=== PATIENT | female | born 1940 | race Caucasian/White ===

== ENCOUNTER 2016-10-23 22:01 | Emergency (ER) | payer MEDICARE, OTHER ==
[2016-10-23 22:23] VITALS: TEMP 99.7
--- NOTE | 2016-10-23 23:08 | ED.PDOC ---
History of Present Illness - General Chief Complaint: Syncope/Near Syncope Stated Complaint: syncope Time Seen by Provider: 10/23/16 22:05 Source: patient Exam Limitations: no limitations - History of Present Illness Initial Comments: THIS PATIENT COMES [facility]. SHE VOICES THAT FOR THE LAST SEVERAL TIMES AFTER HEMODIALYSIS SHE SUFFERS A NEAR SYNCOPE. THIS EPISODES ARE ASSOCIATED WITH PALPITATIONS BUT NO CHEST PAIN. SHE HAS DIABETES MELLITUS. Timing/Duration: other - TWO WEEKS Severity: moderate Improving Factors: nothing Worsening Factors: nothing Associated Symptoms: denies symptoms Allergies/Adverse Reactions: Allergies NO KNOWN ALLERGY Allergy (Verified 06/26/16 22:04) Home Medications: Ambulatory Orders Acetaminophen W/ Codeine [Tylenol W/ CODEINE #3] 1 ea PO Q6HR PRN 07/05/16 Acetaminophen [Tylenol] 650 mg PO Q4HR PRN 07/05/16 Amiodarone HCl [Pacerone] 100 mg PO DAILY 07/05/16 Aspirin (Buffered) 325 mg [Bufferin 325 mg] 1 ea PO QD 07/05/16 Atorvastatin Calcium [Lipitor] 10 mg PO DAILY 07/05/16 Bisacodyl 10 mg [place] DAILY PRN 07/05/16 Calcium Acetate (Phosphate Bin [Calcium Acetate] 2 ea PO TID 07/05/16 Citalopram Hydrobromide [Celexa] 40 mg PO DAILY 07/05/16 Clonidine HCl 0.1 mg PO TID 07/05/16 Cyclobenzaprine HCl [Flexeril] 5 mg PO BID 07/05/16 Diphenhydramine HCl 25 mg PO Q4H PRN 07/05/16 Docusate Sodium 100 mg PO BID 07/05/16 Famotidine 20 mg PO DAILY 07/05/16 HYDROcodone 5MG/APAP 325MG [Arrey 5/325] 1 ea PO Q6HRS PRN 07/05/16 Hydrocodone-Acetaminophen [Hydrocodone Bitartrate/AC] 1 tab PO BEDTIME PRN 07/05 Insulin Aspart [Novolog] 3 unit SC AC 07/05/16 Insulin Detemir [Levemir] 58 unit SUBCU BID 07/05/16 Memantine HCl [Namenda] 5 mg PO DAILY 07/05/16 Metoprolol Tartrate 25 mg PO Q8HR 07/05/16 Multiple Vitamin [Multi Vitamin Daily] 1 tab PO DAILY 07/05/16 Ondansetron [Ondansetron Odt] 4 mg PO Q4HR PRN 07/05/16 Pregabalin [Lyrica] 100 mg PO DAILY 07/05/16 Rivastigmine [Exelon] 13.3 mg TD DAILY 07/05/16 Tramadol HCl 50 mg PO Q12HR PRN 07/05/16 Zolpidem Tartrate 5 mg PO BEDTIME 07/05/16 Cyanocobalamin [Vitamin B12] 1,000 mcg PO MONTHLY 07/06/16 Magnesium Hydroxide [Milk Of Magnesia] 30 ml PO Q8HR PRN 07/06/16 Nystatin Powder [Mycostatin] 15 gm TOP PRN PRN 07/06/16 Polyethylene Glycol 3350 [Miralax] 17 gm PO ANALIA-OTH-DAY 07/06/16 Famotidine 20 mg PO DAILY #30 tab 09/28/16 Review of Systems - Review of Systems Constitutional: States: no symptoms reported EENTM: States: no symptoms reported Respiratory: States: no symptoms reported. Denies: cough, orthopnea, wheezing Cardiology: States: no symptoms reported, palpitations, syncope. Denies: chest pain Gastrointestinal/Abdominal: States: no symptoms reported Genitourinary: States: no symptoms reported Musculoskeletal: States: no symptoms reported Skin: States: no symptoms reported Neurological: States: no symptoms reported Endocrine: States: no symptoms reported Hematologic/Lymphatic: States: no symptoms reported All other Systems: Reviewed and Negative Past Medical History (General) - Patient Medical History Hx Seizures: No Hx Stroke: No Hx Dementia: Yes Hx Asthma: No Hx of COPD: No Hx Cardiac Disorders: No Hx Congestive Heart Failure: No Hx Pacemaker: No Hx Hypertension: Yes Hx Thyroid Disease: No Hx Diabetes: Yes Hx Gastroesophageal Reflux: No Hx Renal Disease: Yes Hx Cancer: No Hx of HIV: No Hx Hepatitis C: No Hx MRSA: No - Vaccination History Hx Tetanus, Diphtheria Vaccination: No Hx Influenza Vaccination: Yes Hx Pneumococcal Vaccination: Yes - Social History Hx Tobacco Use: No Hx Chewing Tobacco Use: No Hx Alcohol Use: No Hx Substance Use: No Hx Substance Use Treatment: No Hx Depression: No Hx Physical Abuse: No Hx Emotional Abuse: No Hx Suspected Abuse: No - Activities of Daily Living [facility] (if applicable):: [facility] - Female History Patient is a Female of Child Bearing Age (10 -59 yrs old): No Patient : No Family Medical History - Family History Mother Family History: Unknown Physical Exam - Physical Exam General Appearance: Alert, Anxious Eye Exam: bilateral normal Ears, Nose, Throat: hearing grossly normal Neck: non-tender, full range of motion Respiratory: chest non-tender, lungs clear, normal breath sounds, no respiratory distress, no accessory muscle use Cardiovascular/Chest: normal peripheral pulses, regular rate, rhythm, no edema, no gallop, no JVD, no murmur Gastrointestinal/Abdominal: normal bowel sounds, non tender, soft, no organomegaly, no pulsatile mass Back Exam: normal inspection Extremity: normal range of motion, non-tender, normal inspection 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 THE CREATININE WAS 1.62. IT MIGHT BE POSSIBLE THAT HEMODIALYSIS COULD BE THE CAUSE OF THESE NEAR SYNCOPE EPISODES. I HAVE GIVEN THE LAB REPORTS TO THE PATIENT AND ASKED HER TO TALK TO DR. CHRISTIAN. Departure - Departure Time of Disposition: 00:42 Disposition: Discharge to Home or Self Care Departure Forms: ED Discharge - Pt. Copy, Patient Portal Self Enrollment Diet: resume usual diet Activity: increase activity as tolerated Home Medications: Ambulatory Orders Acetaminophen W/ Codeine [Tylenol W/ CODEINE #3] 1 ea PO Q6HR PRN 07/05/16 Acetaminophen [Tylenol] 650 mg PO Q4HR PRN 07/05/16 Amiodarone HCl [Pacerone] 100 mg PO DAILY 07/05/16 Aspirin (Buffered) 325 mg [Bufferin 325 mg] 1 ea PO QD 07/05/16 Atorvastatin Calcium [Lipitor] 10 mg PO DAILY 07/05/16 Bisacodyl 10 mg [place] DAILY PRN 07/05/16 Calcium Acetate (Phosphate Bin [Calcium Acetate] 2 ea PO TID 07/05/16 Citalopram Hydrobromide [Celexa] 40 mg PO DAILY 07/05/16 Clonidine HCl 0.1 mg PO TID 07/05/16 Cyclobenzaprine HCl [Flexeril] 5 mg PO BID 07/05/16 Diphenhydramine HCl 25 mg PO Q4H PRN 07/05/16 Docusate Sodium 100 mg PO BID 07/05/16 Famotidine 20 mg PO DAILY 07/05/16 HYDROcodone 5MG/APAP 325MG [Arrey 5/325] 1 ea PO Q6HRS PRN 07/05/16 Hydrocodone-Acetaminophen [Hydrocodone Bitartrate/AC] 1 tab PO BEDTIME PRN 07/05 Insulin Aspart [Novolog] 3 unit SC AC 07/05/16 Insulin Detemir [Levemir] 58 unit SUBCU BID 07/05/16 Memantine HCl [Namenda] 5 mg PO DAILY 07/05/16 Metoprolol Tartrate 25 mg PO Q8HR 07/05/16 Multiple Vitamin [Multi Vitamin Daily] 1 tab PO DAILY 07/05/16 Ondansetron [Ondansetron Odt] 4 mg PO Q4HR PRN 07/05/16 Pregabalin [Lyrica] 100 mg PO DAILY 07/05/16 Rivastigmine [Exelon] 13.3 mg TD DAILY 07/05/16 Tramadol HCl 50 mg PO Q12HR PRN 07/05/16 Zolpidem Tartrate 5 mg PO BEDTIME 07/05/16 Cyanocobalamin [Vitamin B12] 1,000 mcg PO MONTHLY 07/06/16 Magnesium Hydroxide [Milk Of Magnesia] 30 ml PO Q8HR PRN 07/06/16 Nystatin Powder [Mycostatin] 15 gm TOP PRN PRN 07/06/16 Polyethylene Glycol 3350 [Miralax] 17 gm PO ANALIA-OTH-DAY 07/06/16 Famotidine 20 mg PO DAILY #30 tab 09/28/16
[2016-10-24 01:02] VITALS: BP 107/70
[2016-10-24 01:42] VITALS: O2SAT 96
== END 2016-10-24 01:35 | disposition home or self-care (01) ==
LOC: ER 22:01
DX: R55 Syncope and collapse (principal); R00.2 Palpitations; Z79.82 Long term (current) use of aspirin; Z79.4 Long term (current) use of insulin; Z79.899 Other long term (current) drug therapy; F03.90 Unspecified dementia, unspecified severity, without behavioral disturbance, psychotic disturbance, mood disturbance, and anxiety; I12.0 Hypertensive chronic kidney disease with stage 5 chronic kidney disease or end stage renal disease; E11.22 Type 2 diabetes mellitus with diabetic chronic kidney disease; N18.6 End stage renal disease; Z99.2 Dependence on renal dialysis

== ENCOUNTER → 2016-11-03 | Outpatient (CLI) | payer MEDICARE, OTHER ==
--- NOTE | 2016-11-03 13:57 | RAD ---
EXAM DESCRIPTION: XR ANKLE 3 OR MORE VIEWS CLINICAL HISTORY: CLOSED RT ANKLE FX. S82.91XD COMPARISON: October 06, 2016, July 06, 2016 IMPRESSION: Three views of the right ankle again demonstrate a mildly displaced spiral fracture of the right distal fibula at the level of the ankle mortise. The fracture margins appear fairly well corticated and there is lack of bridging interbody fusion. These findings are suspicious for non osseous union. There is somewhat increased widening of the medial ankle mortise and narrowing of the lateral tibiotalar joint consistent with probable ligamentous injury similar to previous exam. Probable mildly displaced avulsion fracture of the medial malleolus is stable. Moderate degenerative changes of the midfoot tarsal bones. Small plantar enthesophyte of the calcaneus. Severe arterial vascular calcifications are seen. The osseous structures are diffusely osteopenic. Electronically signed by: Luis Concepcion MD 11/03/2016 13:55
== END ==
LOC: RAD 07:37
PROVIDERS: ATTEND Orthopaedic Surgery
DX: S82.91XD Unspecified fracture of right lower leg, subsequent encounter for closed fracture with routine healing (principal); M77.31 Calcaneal spur, right foot; M85.871 Other specified disorders of bone density and structure, right ankle and foot; I70.208 Unspecified atherosclerosis of native arteries of extremities, other extremity

== ENCOUNTER 2016-11-07 13:21 | Emergency (ER) | payer MEDICARE ==
[2016-11-07 14:51] VITALS: TEMP 97.6; O2SAT 97
[2016-11-07] MEDS ORDERED: LEVALBUTEROL NEBS 1.25 MG/3 ML VIAL NEB ONE (15:09)
[2016-11-07] MEDS ORDERED: IPRATROPIUM BROMIDE NEBS 0.5 MG/2.5 ML VIAL NEB ONE (15:09)
--- NOTE | 2016-11-07 15:15 | ED.PDOC ---
History of Present Illness - General Chief Complaint: Diabetic Complaint Stated Complaint: elevated blood sugar per [facility]gs home Time Seen by Provider: 11/07/16 13:56 Source: patient Exam Limitations: no limitations - History of Present Illness Initial Comments: The patient is a 76-year-old female presenting to the emergency room due to instructions from nursing staff. She was being given her morning insulin this morning when they found that her glucose was 40. She was given glucagon. Blood sugars were followed and have been good since. It is however their facility policy to send someone up to the emergency room but has had glucagon. She had glucagon apparently more than an hour and half prior to arrival here. Glucose upon arrival here was 250 here. Follow-up check was 150. she has apparently had some mild hypoglycemia in the mornings recently. She is feeling fine. She is a long-term diabetic and is used to ups and downs with her blood sugars. Timing/Duration: 1/2 hour Severity: moderate Improving Factors: nothing Worsening Factors: nothing Associated Symptoms: malaise Allergies/Adverse Reactions: Allergies NO KNOWN ALLERGY Allergy (Verified 11/07/16 14:51) Home Medications: Ambulatory Orders Acetaminophen W/ Codeine [Tylenol W/ CODEINE #3] 1 ea PO Q6HR PRN 07/05/16 Acetaminophen [Tylenol] 650 mg PO Q4HR PRN 07/05/16 Amiodarone HCl [Pacerone] 100 mg PO DAILY 07/05/16 Aspirin (Buffered) 325 mg [Bufferin 325 mg] 1 ea PO QD 07/05/16 Atorvastatin Calcium [Lipitor] 10 mg PO DAILY 07/05/16 Bisacodyl 10 mg [place] DAILY PRN 07/05/16 Citalopram Hydrobromide [Celexa] 40 mg PO DAILY 07/05/16 Clonidine HCl 0.1 mg PO TID 07/05/16 Cyclobenzaprine HCl [Flexeril] 5 mg PO BID 07/05/16 Diphenhydramine HCl 25 mg PO Q4H PRN 07/05/16 Docusate Sodium 100 mg PO BID 07/05/16 Famotidine 20 mg PO DAILY 07/05/16 HYDROcodone 5MG/APAP 325MG [Selby 5/325] 1 ea PO Q6HRS PRN 07/05/16 Hydrocodone-Acetaminophen [Hydrocodone Bitartrate/AC] 1 tab PO BEDTIME PRN 07/05 Insulin Aspart [Novolog] 3 unit SC AC 07/05/16 Insulin Detemir [Levemir] 58 unit SUBCU BID 07/05/16 Memantine HCl [Namenda] 5 mg PO DAILY 07/05/16 Metoprolol Tartrate 25 mg PO Q8HR 07/05/16 Multiple Vitamin [Multi Vitamin Daily] 1 tab PO DAILY 07/05/16 Ondansetron [Ondansetron Odt] 4 mg PO Q4HR PRN 07/05/16 Pregabalin [Lyrica] 100 mg PO DAILY 07/05/16 Rivastigmine [Exelon] 13.3 mg TD DAILY 07/05/16 Tramadol HCl 50 mg PO Q12HR PRN 07/05/16 Zolpidem Tartrate 5 mg PO BEDTIME 07/05/16 Cyanocobalamin [Vitamin B12] 1,000 mcg PO MONTHLY 07/06/16 Magnesium Hydroxide [Milk Of Magnesia] 30 ml PO Q8HR PRN 07/06/16 Nystatin Powder [Mycostatin] 15 gm TOP PRN PRN 07/06/16 Polyethylene Glycol 3350 [Miralax] 17 gm PO ANALIA-OTH-DAY 07/06/16 Sevelamer Carbonate [Renvela] 1,600 mg PO TIDFD 10/24/16 Review of Systems - Review of Systems Constitutional: States: malaise EENTM: States: no symptoms reported Respiratory: States: no symptoms reported Cardiology: States: no symptoms reported Gastrointestinal/Abdominal: States: no symptoms reported Genitourinary: States: no symptoms reported Musculoskeletal: States: no symptoms reported Skin: States: no symptoms reported Neurological: States: headache - mild, tremors - mild All other Systems: No Change from Baseline Past Medical History (General) - Patient Medical History Hx Seizures: No Hx Stroke: No Hx Dementia: Yes Hx Asthma: No Hx of COPD: No Hx Cardiac Disorders: No Hx Congestive Heart Failure: No Hx Pacemaker: No Hx Hypertension: Yes Hx Thyroid Disease: No Hx Diabetes: Yes Hx Gastroesophageal Reflux: No Hx Renal Disease: Yes Hx Cancer: No Hx of HIV: No Hx Hepatitis C: No Hx MRSA: No - Vaccination History Hx Tetanus, Diphtheria Vaccination: No Hx Influenza Vaccination: Yes Hx Pneumococcal Vaccination: Yes - Social History Hx Tobacco Use: No Hx Chewing Tobacco Use: No Hx Alcohol Use: No Hx Substance Use: No Hx Substance Use Treatment: No Hx Depression: No Hx Physical Abuse: No Hx Emotional Abuse: No Hx Suspected Abuse: No - Female History Patient is a Female of Child Bearing Age (10 -59 yrs old): No Patient : No Family Medical History - Family History Mother Family History: Unknown Physical Exam - Physical Exam General Appearance: Alert, Comfortable, No apparent distress Eye Exam: bilateral normal Ears, Nose, Throat: normal ENT inspection, normal pharynx Neck: full range of motion, supple, normal inspection Respiratory: chest non-tender, lungs clear, normal breath sounds, no respiratory distress, no accessory muscle use Cardiovascular/Chest: normal peripheral pulses, no edema, other - Regular rate Peripheral Pulses: radial,right: 2+, radial,left: 2+ Gastrointestinal/Abdominal: non tender, soft Rectal Exam: deferred Back Exam: normal inspection, no CVA tenderness, no vertebral tenderness Extremity: normal range of motion, non-tender, normal inspection - vascular shunt intact, no pedal edema, normal capillary refill 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 She actually arrived here well after the duration of the effect of the glucagon. She was monitored for a couple of hours here with repeat glucoses. Blood sugars are normal. She was allowed to eat lunch. Due to her report of multiple low blood sugars early in the morning, we recommend a reduction of her evening insulin dose by approximately 15%. Monitor for future hypoglycemia. er warnings are given. Follow-up with primary care doctor. Departure - Departure Clinical Impression: Hypoglycemia Diabetes mellitus Qualifiers: Diabetes mellitus type: type 2 Diabetes mellitus complication status: with other specified complication Qualifier Code: (E11.69) Type 2 diabetes mellitus with other specified complication Disposition: Discharge to Home or Self Care Condition: Fair Departure Forms: ED Discharge - Pt. Copy, Patient Portal Self Enrollment Instructions: DI for Hypoglycemia Diet: diabetic diet Activity: increase activity as tolerated Referrals: Darrel Marroquin III, MD [Primary Care Provider] - 1-2 Weeks Home Medications: Ambulatory Orders Acetaminophen W/ Codeine [Tylenol W/ CODEINE #3] 1 ea PO Q6HR PRN 07/05/16 Acetaminophen [Tylenol] 650 mg PO Q4HR PRN 07/05/16 Amiodarone HCl [Pacerone] 100 mg PO DAILY 07/05/16 Aspirin (Buffered) 325 mg [Bufferin 325 mg] 1 ea PO QD 07/05/16 Atorvastatin Calcium [Lipitor] 10 mg PO DAILY 07/05/16 Bisacodyl 10 mg [place] DAILY PRN 07/05/16 Citalopram Hydrobromide [Celexa] 40 mg PO DAILY 07/05/16 Clonidine HCl 0.1 mg PO TID 07/05/16 Cyclobenzaprine HCl [Flexeril] 5 mg PO BID 07/05/16 Diphenhydramine HCl 25 mg PO Q4H PRN 07/05/16 Docusate Sodium 100 mg PO BID 07/05/16 Famotidine 20 mg PO DAILY 07/05/16 HYDROcodone 5MG/APAP 325MG [Selby 5/325] 1 ea PO Q6HRS PRN 07/05/16 Hydrocodone-Acetaminophen [Hydrocodone Bitartrate/AC] 1 tab PO BEDTIME PRN 07/05 Insulin Aspart [Novolog] 3 unit SC AC 07/05/16 Insulin Detemir [Levemir] 58 unit SUBCU BID 07/05/16 Memantine HCl [Namenda] 5 mg PO DAILY 07/05/16 Metoprolol Tartrate 25 mg PO Q8HR 07/05/16 Multiple Vitamin [Multi Vitamin Daily] 1 tab PO DAILY 07/05/16 Ondansetron [Ondansetron Odt] 4 mg PO Q4HR PRN 07/05/16 Pregabalin [Lyrica] 100 mg PO DAILY 07/05/16 Rivastigmine [Exelon] 13.3 mg TD DAILY 07/05/16 Tramadol HCl 50 mg PO Q12HR PRN 07/05/16 Zolpidem Tartrate 5 mg PO BEDTIME 07/05/16 Cyanocobalamin [Vitamin B12] 1,000 mcg PO MONTHLY 07/06/16 Magnesium Hydroxide [Milk Of Magnesia] 30 ml PO Q8HR PRN 07/06/16 Nystatin Powder [Mycostatin] 15 gm TOP PRN PRN 07/06/16 Polyethylene Glycol 3350 [Miralax] 17 gm PO ANALIA-OTH-DAY 07/06/16 Sevelamer Carbonate [Renvela] 1,600 mg PO TIDFD 10/24/16 Additional Instructions: the patient is a 76-year-old female presenting to the emergency room after an episode of hypoglycemia in which she was given glucagon. She actually arrived here well after the duration of the effect of the glucagon. She was monitored for a couple of hours here with repeat glucoses. Blood sugars are normal. She was allowed to eat lunch. Due to her report of multiple low blood sugars early in the morning, we recommend a reduction of her evening insulin dose by approximately 15%. Monitor for future hypoglycemia. er warnings are given. Follow-up with primary care doctor.
[2016-11-07 16:37] VITALS: BP 110/62
== END 2016-11-07 16:00 | disposition home or self-care (01) ==
LOC: ER 13:21
DX: E11.649 Type 2 diabetes mellitus with hypoglycemia without coma (principal); I10 Essential (primary) hypertension; F03.90 Unspecified dementia, unspecified severity, without behavioral disturbance, psychotic disturbance, mood disturbance, and anxiety; N28.9 Disorder of kidney and ureter, unspecified; Z79.82 Long term (current) use of aspirin; Z79.899 Other long term (current) drug therapy; Z79.4 Long term (current) use of insulin

== ENCOUNTER → 2016-11-10 | Outpatient (CLI) | payer MEDICARE ==
--- NOTE | 2016-11-10 08:19 | RAD ---
EXAM DESCRIPTION: XR ANKLE 3 OR MORE VIEWS CLINICAL HISTORY: 76 y/o ,F, FRACTURE IMPRESSION: Three views right foot Healing lateral malleoli fracture. It appears grossly unchanged when compared to November 03, 2016. There is widening of the medial clear space with avulsion injury to the tip of the medial malleolus. All findings are unchanged. Electronically signed by: Rogelio De Paz MD 11/10/2016 08:18
== END ==
LOC: RAD 07:41
PROVIDERS: ATTEND Orthopaedic Surgery
DX: S82.91XD Unspecified fracture of right lower leg, subsequent encounter for closed fracture with routine healing (principal)

== ENCOUNTER → 2016-11-17 | Outpatient (CLI) | payer MEDICARE ==
--- NOTE | 2016-11-28 17:15 | RAD ---
EXAM DESCRIPTION: Right ankle, three views. CLINICAL HISTORY: Fracture. Ankle pain. FINDINGS/IMPRESSION: Comparison 11/10/2016 Oblique fracture distal fibular metaphysis with the fracture medially at about the tibiotalar joint space. Stable compared to previous study. Evidence of coexistent medial ligament injury with widening of the ankle mortise medially up to 9 mm. Stable compared to previous study No fracture of the tibia, talus, or calcaneus. No fracture of the other tarsal bones or metatarsals. Midfoot osteoarthritis Atherosclerotic vascular calcifications Electronically signed by: Ulisses Joiner MD 11/17/2016 10:20
== END | disposition home or self-care (01) ==
LOC: RAD 07:38
PROVIDERS: ATTEND Orthopaedic Surgery
DX: S82.91XD Unspecified fracture of right lower leg, subsequent encounter for closed fracture with routine healing (principal)

== ENCOUNTER → 2016-11-24 | Outpatient (CLI) | payer MEDICARE ==
--- NOTE | 2016-11-24 10:22 | RAD ---
EXAM DESCRIPTION: XR ANKLE 3 OR MORE VIEWS CLINICAL HISTORY: 76 y/o ,F, CLOSED FX RT ANKLE. S82.91XD COMPARISON: November 17, 2016 IMPRESSION: Today's exam re- demonstrates the bilateral malleoli fractures. There is once again widening of the medial ankle mortise and medial clear space measuring approximately 8 mm. No definitive callus formation at this time. Electronically signed by: Rogelio De Paz MD 11/24/2016 10:20
== END | disposition home or self-care (01) ==
LOC: RAD 07:43
PROVIDERS: ATTEND Orthopaedic Surgery
DX: S82.91XD Unspecified fracture of right lower leg, subsequent encounter for closed fracture with routine healing (principal)

== ENCOUNTER → 2016-12-23 | Outpatient (CLI) | payer MEDICARE, OTHER | END | disposition home or self-care (01) | LOC: GOCC 11:21 | PROVIDERS: ATTEND Family Medicine | DX: N18.6 End stage renal disease (principal); R30.0 Dysuria ==

== ENCOUNTER → 2017-01-16 | Outpatient (CLI) | payer OTHER ==
--- NOTE | 2017-01-16 10:48 | CT ---
EXAM DESCRIPTION: Abdoment/Pelvis w/o Contrast CLINICAL HISTORY: INCARCERATED HERNIA COMPARISON: None. TECHNIQUE: CT of the abdomen and pelvis was performed without contrast. Multiple axial images and multiplanar reconstructions were generated. FINDINGS: No acute findings within the lung bases. Degenerative change of the thoracolumbar spine with evidence of osteopenia. The liver, spleen, bilateral adrenal glands and the pancreas are unremarkable. Cholelithiasis noted. Atrophic kidneys bilaterally. There is a right of midline abdominal wall hernia. The hernia neck measures 4.2 cm in diameter. The height of the hernia sac measures 6.3 cm in diameter. The hernia sac contains colon and mesenteric fat. There is injected fat noted within the hernia sac compatible with congestion. No evidence of obstruction on today's exam. Old left inferior pubic ramus fracture. IMPRESSION: Today's exam demonstrates a midline abdominal wall hernia which contains both transverse colon and mesenteric fat. There is no evidence of colonic obstruction at this time. The mesenteric fat noted within the hernia sac is injected which can be seen with venous congestion from incarceration. Cholelithiasis noted. Electronically signed by: Rogelio De Paz MD 01/16/2017 10:48 AM CDT
== END | disposition home or self-care (01) ==
LOC: CT 08:27
PROVIDERS: ATTEND Surgery
DX: K43.0 Incisional hernia with obstruction, without gangrene (principal)

== ENCOUNTER → 2017-04-18 | Outpatient (CLI) | payer OTHER ==
--- NOTE | 2017-04-18 10:56 | MRI ---
EXAM DESCRIPTION: Lumbar Spine w/o Contrast CLINICAL HISTORY: LOW BACK PAIN COMPARISON: CT abdomen/pelvis 01/16/2017 TECHNIQUE: MRI of the lumbar spine is performed according to our usual protocol with axial and sagittal multi sequence imaging. FINDINGS: The designated L5-S1 disc space is on axial T2 image 3. Changes of vertebral body augmentation are demonstrated L3. There is loss of stature along the superior L3 endplate, with remodeling of the inferior L2 and L3 vertebral bodies. There is moderate associated marrow edema, and the intervening disc is mostly collapsed, but there is mild edema in the disc space is well. Retrolisthesis of L2 on L3. Remaining vertebral body stature is maintained. There is no acute fracture. The conus medullaris terminates normally. L1-2: Disc desiccation with moderate disc narrowing. Moderate facet hypertrophy with ligamentum flavum thickening. 4 mm posterior disc osteophyte complex. Multifactorial moderate spinal canal stenosis with residual AP diameter of the thecal sac measuring 7.5 mm. Moderate bilateral neural foraminal stenosis. L2-3: Retrolisthesis with remodeling of both endplates. Laminectomy changes are demonstrated. The spinal canal is patent. There is moderate facet hypertrophy. Osteophytic ridging of the endplates with uncovering of the disc. Severe left greater than right neural foraminal stenosis. L3-4: Disc desiccation with mild disc narrowing. Severe facet hypertrophy with ligamentum flavum thickening. 3.5 mm posterior disc osteophyte complex. Multiple spectra severe spinal canal stenosis. Residual AP diameter of the thecal sac is 5.7 mm. Moderate bilateral neural foraminal stenosis. L4-5: Disc desiccation with mild disc narrowing. There is severe facet hypertrophy with probable changes of prior posterior fusion on the left. Laminectomy changes. The spinal canal is patent. Osteophytic ridging of the endplates with moderate left and mild right neural foraminal stenosis. L5-S1: Disc desiccation. Moderate to severe facet hypertrophy. Mild osteophytic ridging of the endplates and posterior disc bulging with moderate left greater than right neural foraminal stenosis. The spinal canal is patent. IMPRESSION: 1. Marrow edema at centered at the L2-L3 disc space with edema in the disc. This may be degenerative, reactive, or postoperative, but would recommend correlation with ESR and CRP to exclude discitis-osteomyelitis which may have a similar appearance. At this level, there is severe left greater than right neural foraminal stenosis. 2. At L3-L4, there is multifactorial severe spinal canal stenosis and moderate bilateral neural foraminal stenosis. 3. At L1-L2, there is moderate spinal canal stenosis and moderate bilateral neural foraminal stenosis. 4. Other findings as above. Electronically signed by: Jeremías Hurt MD 04/18/2017 10:56 AM CDT
== END | disposition home or self-care (01) ==
LOC: MRI 09:27
PROVIDERS: ATTEND Family Medicine
DX: M48.06 Spinal stenosis, lumbar region (principal)

== ENCOUNTER 2017-06-04 06:00 | Day surgery (SDC) | payer OTHER ==
[2017-06-04] MEDS ORDERED: methylPREDNISolone ACETATE 80 MG/ML VIAL ONE (11:23)
[2017-06-04] MEDS ORDERED: SODIUM CHLORIDE 0.9% 10 ML VIAL ONE (11:23)
[2017-06-04] MEDS: LIDOCAINE 1% MPF 5 ML VIAL ONE ×2 (12:01→12:04)
[2017-06-04 14:10] VITALS: BP 170/75; TEMP 96.7; O2SAT 95
== END 2017-06-04 12:20 | disposition home or self-care (01) ==
LOC: AMB 06:00 → EDSTATUS 12:00 → AMB 12:20
PROVIDERS: ATTEND Anesthesiology Pain Medicine
DX: M54.5 Low back pain (principal); M51.16 Intervertebral disc disorders with radiculopathy, lumbar region; E11.40 Type 2 diabetes mellitus with diabetic neuropathy, unspecified; M96.1 Postlaminectomy syndrome, not elsewhere classified; N28.9 Disorder of kidney and ureter, unspecified; Z79.82 Long term (current) use of aspirin; Z79.4 Long term (current) use of insulin; Z79.899 Other long term (current) drug therapy
CPT/HCPCS: 62323; 76000; J1030

== ENCOUNTER 2017-09-19 07:14 | Emergency (ER) | payer OTHER ==
[2017-09-19 07:35] VITALS: TEMP 97.5
--- NOTE | 2017-09-19 07:38 | ED.PDOC ---
History of Present Illness - General Chief Complaint: Trauma Stated Complaint: fall, headache Time Seen by Provider: 09/19/17 07:34 Source: patient, RN notes reviewed, EMS Exam Limitations: no limitations - History of Present Illness Initial Comments: WAS AT [place] ROOM IN THE [place]. WAS WALKING FROM BR TO BATHROOM AND TRIPPED AND FELL. HEAD HIT FLOOR. (HARD, TILE FLOOR. NO CARPETING.) SHE REMEMBERS EVENT. NO LOC. L SHOULDER HURTS TOO. DENIES ANY OTHER PAIN C/O. Occurred: just prior to arrival Severity: moderate Pain Location: head, upper extremity Method of Injury: fall Improving Factors: immobilization Worsening Factors: movement Loss of Consciousness: no loss of consciousness Associated Symptoms (Fall): denies symptoms Allergies/Adverse Reactions: Allergies NO KNOWN ALLERGY Allergy (Verified 11/07/16 14:51) Home Medications: Ambulatory Orders Acetaminophen [Tylenol] 650 mg PO Q6H PRN 07/05/16 Amiodarone HCl [Pacerone] 100 mg PO DAILY 07/05/16 Aspirin (Buffered) 325 mg [Bufferin 325 mg] 1 ea PO QD 07/05/16 Atorvastatin Calcium [Lipitor] 10 mg PO BEDTIME 07/05/16 Bisacodyl 10 mg MT DAILY PRN 07/05/16 Citalopram Hydrobromide [Celexa] 40 mg PO DAILY 07/05/16 Clonidine HCl 0.1 mg PO Q6H PRN 07/05/16 Cyclobenzaprine HCl [Flexeril] 5 mg PO BID 07/05/16 Diphenhydramine HCl 25 mg PO Q4H PRN 07/05/16 Docusate Sodium 100 mg PO BID 07/05/16 Famotidine 10 mg PO DAILY 07/05/16 HYDROcodone 5MG/APAP 325MG [[place]vid 5/325] 1 ea PO Q6HRS PRN 07/05/16 Insulin Aspart [Novolog] 3 unit SC AC 07/05/16 Insulin Detemir [Levemir] 55 unit SUBCU BID 07/05/16 Metoprolol Tartrate 25 mg PO Q8HR 07/05/16 Multiple Vitamin [Multi Vitamin Daily] 1 tab PO DAILY 07/05/16 Ondansetron [Ondansetron Odt] 4 mg PO Q4HR PRN 07/05/16 Pregabalin [Lyrica] 100 mg PO DAILY 07/05/16 Rivastigmine [Exelon] 13.3 mg TD DAILY 07/05/16 Zolpidem Tartrate 5 mg PO BEDTIME 07/05/16 Cyanocobalamin [Vitamin B12] 1,000 mcg PO MONTHLY 07/06/16 Magnesium Hydroxide [Milk Of Magnesia] 30 ml PO Q8HR PRN 07/06/16 Polyethylene Glycol 3350 [Miralax] 17 gm PO DAILY PRN 07/06/16 Sevelamer Carbonate [Renvela] 1,600 mg PO TIDFD 10/24/16 Acetaminophen W/ Codeine [Tylenol W/ CODEINE #3] 1 ea PO Q4H PRN 09/19/17 Gabapentin 100 mg PO BID 09/19/17 Liraglutide [Victoza] 18 mg SC DAILY 09/19/17 Memantine HCl [Namenda Xr] 28 mg PO DAILY 09/19/17 Omeprazole 20 mg PO BID 09/19/17 Review of Systems - Review of Systems Constitutional: States: no symptoms reported EENTM: Denies: eye pain, ear pain, nose pain Respiratory: States: no symptoms reported Cardiology: States: no symptoms reported Gastrointestinal/Abdominal: States: no symptoms reported Genitourinary: States: no symptoms reported Musculoskeletal: States: neck pain. Denies: back pain Skin: States: no symptoms reported Neurological: Denies: numbness, paresthesia, tingling, tremors, weakness Endocrine: States: no symptoms reported Hematologic/Lymphatic: States: no symptoms reported All other Systems: Reviewed and Negative Past Medical History (General) - Patient Medical History Hx Seizures: No Hx Stroke: No Hx Dementia: Yes Hx Asthma: No Hx of COPD: No Hx Cardiac Disorders: Yes - afib Hx Congestive Heart Failure: No Hx Pacemaker: No Hx Hypertension: Yes Hx Thyroid Disease: Yes Hx Diabetes: Yes Hx Gastroesophageal Reflux: No Hx Renal Disease: Yes Hx Cancer: No Hx of HIV: No Hx Hepatitis C: No Hx MRSA: No - Vaccination History Hx Tetanus, Diphtheria Vaccination: No Hx Influenza Vaccination: Yes Hx Pneumococcal Vaccination: Yes - Social History Hx Tobacco Use: No Hx Chewing Tobacco Use: No Hx Alcohol Use: No Hx Substance Use: No Hx Substance Use Treatment: No Hx Depression: No Hx Physical Abuse: No Hx Emotional Abuse: No Hx Suspected Abuse: No - Activities of Daily Living Detention/Assisted Living (if applicable):: [facility] - Female History Patient : No Family Medical History - Family History Mother Family History: Unknown Physical Exam - Physical Exam General Appearance: Alert, Well Nourished Head Injury: swelling, other - 8X8 CM SUPERFICIAL HEMATOMA OF SUPERIOR OCCIPITAL / L PARIETAL SCALP. MILDLY TTP. SKIN IN TACT. NO ECCHYMOSIS. Eye Exam: bilateral normal ENT Exam: hearing grossly normal, no evidence of ENT injury, no dental injury Neck Exam: full range of motion - BUT FEELS "STIFF"., normal alignment, normal inspection Cardiovascular/Respiratory: regular rate, rhythm, no M/R/G Gastrointestinal/Abdominal: non tender, soft Back Exam: no CVA tenderness, no vertebral tenderness Extremity Exam: no evidence of injury - EXCEPT L SHOULDER TTP. , normal range of motion Neurologic: insole taper II-XII nml as tested, no motor/sensory deficits, alert, oriented x 3 Skin Exam: normal color, warm/dry - [place] Coma Score Best Eye Response ([place]): (4) open spontaneously Best Verbal Response ([place]): (5) oriented Best Motor Response ([place]): (6) obeys commands [place] Total: 15 Progress - Results/Orders Results/Orders: CT BRAIN, C-SPINE, AND L SHOULDER XRAY NEG ACUTELY, EXCEPT FOR SUPERFICIAL SCALP HEMATOMA. NO FURTHER ED MGMT INDICATED. PT IS LUCID BUT HAD JUST TRIPPED/SLIPPED. SAFE FOR RETURN TO NH. Departure - Departure Clinical Impression: Left parietal scalp hematoma, Head contusion, Contusion of left shoulder Disposition: Discharge to SNF Condition: Good Departure Forms: ED Discharge - Pt. Copy, Patient Portal Self Enrollment Instructions: DI for Trauma Diet: resume usual diet Activity: increase activity as tolerated Referrals: Darrel Marroquin III, MD [Primary Care Provider] - 1-2 Weeks Home Medications: Ambulatory Orders Acetaminophen [Tylenol] 650 mg PO Q6H PRN 07/05/16 Amiodarone HCl [Pacerone] 100 mg PO DAILY 07/05/16 Aspirin (Buffered) 325 mg [Bufferin 325 mg] 1 ea PO QD 07/05/16 Atorvastatin Calcium [Lipitor] 10 mg PO BEDTIME 07/05/16 Bisacodyl 10 mg MT DAILY PRN 07/05/16 Citalopram Hydrobromide [Celexa] 40 mg PO DAILY 07/05/16 Clonidine HCl 0.1 mg PO Q6H PRN 07/05/16 Cyclobenzaprine HCl [Flexeril] 5 mg PO BID 07/05/16 Diphenhydramine HCl 25 mg PO Q4H PRN 07/05/16 Docusate Sodium 100 mg PO BID 07/05/16 Famotidine 10 mg PO DAILY 07/05/16 HYDROcodone 5MG/APAP 325MG [[place]vid 5/325] 1 ea PO Q6HRS PRN 07/05/16 Insulin Aspart [Novolog] 3 unit SC AC 07/05/16 Insulin Detemir [Levemir] 55 unit SUBCU BID 07/05/16 Metoprolol Tartrate 25 mg PO Q8HR 07/05/16 Multiple Vitamin [Multi Vitamin Daily] 1 tab PO DAILY 07/05/16 Ondansetron [Ondansetron Odt] 4 mg PO Q4HR PRN 07/05/16 Pregabalin [Lyrica] 100 mg PO DAILY 07/05/16 Rivastigmine [Exelon] 13.3 mg TD DAILY 07/05/16 Zolpidem Tartrate 5 mg PO BEDTIME 07/05/16 Cyanocobalamin [Vitamin B12] 1,000 mcg PO MONTHLY 07/06/16 Magnesium Hydroxide [Milk Of Magnesia] 30 ml PO Q8HR PRN 07/06/16 Polyethylene Glycol 3350 [Miralax] 17 gm PO DAILY PRN 07/06/16 Sevelamer Carbonate [Renvela] 1,600 mg PO TIDFD 10/24/16 Acetaminophen W/ Codeine [Tylenol W/ CODEINE #3] 1 ea PO Q4H PRN 09/19/17 Gabapentin 100 mg PO BID 09/19/17 Liraglutide [Victoza] 18 mg SC DAILY 09/19/17 Memantine HCl [Namenda Xr] 28 mg PO DAILY 09/19/17 Omeprazole 20 mg PO BID 09/19/17
--- NOTE | 2017-09-19 08:16 | CT ---
EXAM DESCRIPTION: Head. CT head without contrast. CLINICAL HISTORY: fall with hematoma to parietal COMPARISON: 07/05/2016 TECHNIQUE: Multiple axial images of the head without contrast. Multiplanar reformatted images. This exam was performed according to our departmental dose-optimization program, which includes automated exposure control, adjustment of the mA and/or kV according to patient size and/or use of iterative reconstruction technique. FINDINGS: Evaluation for intracranial hemorrhage is limited due to motion artifact, particularly near the vertex in the area of the large scalp hematoma. Allowing for limitations, there is no definite evidence for intracranial hemorrhage, mass effect, or midline shift. Moderate generalized volume loss. Mild to moderate patchy supratentorial white matter hypodensities. No definite abnormal extra-axial fluid collections. Calcific plaque in the visualized arteries. Large left parietal scalp hematoma. The visualized paranasal sinuses and the mastoids are clear. IMPRESSION: 1. Limited evaluation, with no definite CT evidence for intracranial hemorrhage or mass effect. 2. Large left parietal scalp hematoma. 3. Senescent changes. Electronically signed by: Jeremías Hurt MD 09/19/2017 8:15 AM [facility]
--- NOTE | 2017-09-19 08:22 | RAD ---
EXAM DESCRIPTION: Shoulder,Left 2 or More Views CLINICAL HISTORY: 77 yearsFemale, FELL; L SHOULDER PAIN COMPARISON: None. IMPRESSION: 2 views of the left shoulder demonstrate no evidence of acute fracture, dislocation, or destructive osseous lesion. Advanced glenohumeral and acromio clavicular degenerative changes are present. There is a vascular stent in the proximal left arm. The visualized left lung apex is clear. Electronically signed by: Jeremías Hurt MD 09/19/2017 8:21 AM [facility]
--- NOTE | 2017-09-19 08:24 | CT ---
EXAM DESCRIPTION: Cervical Spine CLINICAL HISTORY: fall COMPARISON: None Available. TECHNIQUE: Multiple axial images of the cervical spine without contrast. Multiplanar reformatted images. This exam was performed according to our departmental dose-optimization program, which includes automated exposure control, adjustment of the mA and/or kV according to patient size and/or use of iterative reconstruction technique. FINDINGS: Vertebral body stature and alignment are maintained. There is no acute fracture or destructive osseous lesion. Multilevel cervical spondylosis is present with mild to moderate multilevel disc narrowing from C3-C4 through C7-T1. Multilevel hypertrophic uncovertebral spurring and facet degenerative changes with up to moderate bilateral neural foraminal narrowing at C5-C6 and C6-C7. No CT evidence of high-grade spinal canal narrowing. Moderate atherosclerotic plaque in the visualized arteries, including the carotid bulbs. Mild fibrotic changes in the lung apices. IMPRESSION: 1. No CT evidence of an acute osseous abnormality in the cervical spine. 2. Multilevel spondylitic changes. Electronically signed by: Jeremías Hurt MD 09/19/2017 8:23 AM [facility]
[2017-09-19 10:08] VITALS: BP 123/64; O2SAT 97
== END 2017-09-19 10:08 ==
LOC: ER 07:14
DX: S00.03XA Contusion of scalp, initial encounter (principal); S40.012A Contusion of left shoulder, initial encounter; I48.91 Unspecified atrial fibrillation; I10 Essential (primary) hypertension; E07.9 Disorder of thyroid, unspecified; E11.9 Type 2 diabetes mellitus without complications; F03.90 Unspecified dementia, unspecified severity, without behavioral disturbance, psychotic disturbance, mood disturbance, and anxiety; Z79.82 Long term (current) use of aspirin; Z79.4 Long term (current) use of insulin; Z79.899 Other long term (current) drug therapy; W01.0XXA Fall on same level from slipping, tripping and stumbling without subsequent striking against object, initial encounter; Y92.89 Other specified places as the place of occurrence of the external cause

== ENCOUNTER 2017-09-24 05:41 | Day surgery (SDC) | payer OTHER ==
[2017-09-24] MEDS ORDERED: SODIUM BICARBONATE VIAL 50 MEQ/50 ML VIAL ONE (11:17)
[2017-09-24] MEDS ORDERED: SODIUM CHLORIDE 0.9% 10 ML VIAL ONE (11:17)
[2017-09-24] MEDS ORDERED: methylPREDNISolone ACETATE 80 MG/ML VIAL ONE (11:17)
[2017-09-24] MEDS: LIDOCAINE 1% MPF 5 ML VIAL ONE ×2 (12:28→12:30)
[2017-09-24 12:56] VITALS: BP 139/72; TEMP 97.1; O2SAT 96
== END 2017-09-24 13:00 ==
LOC: AMB 05:41
PROVIDERS: ATTEND Anesthesiology Pain Medicine
DX: M51.16 Intervertebral disc disorders with radiculopathy, lumbar region (principal); M54.5 Low back pain; E11.9 Type 2 diabetes mellitus without complications; M96.1 Postlaminectomy syndrome, not elsewhere classified; M46.96 Unspecified inflammatory spondylopathy, lumbar region; Z79.82 Long term (current) use of aspirin; Z79.4 Long term (current) use of insulin; Z79.899 Other long term (current) drug therapy
CPT/HCPCS: 62323; 76000; J1030

== ENCOUNTER 2017-10-01 17:40 | Inpatient (IN) | payer OTHER ==
--- NOTE | 2017-10-01 19:33 | ED.PDOC ---
History of Present Illness - General Chief Complaint: Respiratory Problem Stated Complaint: cough Time Seen by Provider: 10/01/17 19:33 Source: patient, family Exam Limitations: no limitations - History of Present Illness Initial Comments: Liss Ortega 77 y/o female brought by son with cough for the last one week and fever for 2 days.No N/V ,no diarrhea,no ill contact.She has ESRD on dialysis. Timing/Duration: other - see hpi Severity: moderate Worsening Factors: nothing Associated Symptoms: cough Allergies/Adverse Reactions: Allergies NO KNOWN ALLERGY Allergy (Verified 10/01/17 18:56) Home Medications: Ambulatory Orders Acetaminophen [Tylenol] 650 mg PO Q6H PRN 07/05/16 Amiodarone HCl [Pacerone] 100 mg PO DAILY 07/05/16 Aspirin (Buffered) 325 mg [Bufferin 325 mg] 1 ea PO QD 07/05/16 Atorvastatin Calcium [Lipitor] 10 mg PO BEDTIME 07/05/16 Bisacodyl 10 mg SC DAILY PRN 07/05/16 Citalopram Hydrobromide [Celexa] 40 mg PO DAILY 07/05/16 Clonidine HCl 0.1 mg PO Q6H PRN 07/05/16 Cyclobenzaprine HCl [Flexeril] 5 mg PO BID 07/05/16 Diphenhydramine HCl 25 mg PO Q4H PRN 07/05/16 Docusate Sodium 100 mg PO BID 07/05/16 Famotidine 10 mg PO DAILY 07/05/16 HYDROcodone 5MG/APAP 325MG [[place] 5/325] 1 ea PO Q6HRS PRN 07/05/16 Insulin Aspart [Novolog] 3 unit SC AC 07/05/16 Insulin Detemir [Levemir] 55 unit SUBCU BID 07/05/16 Metoprolol Tartrate 25 mg PO Q8HR 07/05/16 Multiple Vitamin [Multi Vitamin Daily] 1 tab PO DAILY 07/05/16 Ondansetron [Ondansetron Odt] 4 mg PO Q4HR PRN 07/05/16 Pregabalin [Lyrica] 100 mg PO DAILY 07/05/16 Rivastigmine [Exelon] 13.3 mg TD DAILY 07/05/16 Zolpidem Tartrate 5 mg PO BEDTIME 07/05/16 Cyanocobalamin [Vitamin B12] 1,000 mcg PO MONTHLY 07/06/16 Magnesium Hydroxide [Milk Of Magnesia] 30 ml PO Q8HR PRN 07/06/16 Polyethylene Glycol 3350 [Miralax] 17 gm PO DAILY PRN 07/06/16 Sevelamer Carbonate [Renvela] 1,600 mg PO TIDFD 10/24/16 Acetaminophen W/ Codeine [Tylenol W/ CODEINE #3] 1 ea PO Q4H PRN 09/19/17 Gabapentin 100 mg PO BID 09/19/17 Liraglutide [Victoza] 18 mg SC DAILY 09/19/17 Memantine HCl [Namenda Xr] 28 mg PO DAILY 09/19/17 Omeprazole 20 mg PO BID 09/19/17 Review of Systems - Review of Systems Constitutional: States: no symptoms reported EENTM: States: no symptoms reported Respiratory: States: see HPI Cardiology: States: no symptoms reported Gastrointestinal/Abdominal: States: no symptoms reported Genitourinary: States: see HPI Musculoskeletal: States: no symptoms reported Skin: States: see HPI Neurological: States: no symptoms reported Past Medical History (General) - Patient Medical History Hx Seizures: No Hx Stroke: No Hx Dementia: Yes Hx Asthma: No Hx of COPD: No Hx Cardiac Disorders: Yes - afib Hx Congestive Heart Failure: No Hx Pacemaker: No Hx Hypertension: Yes Hx Thyroid Disease: Yes Hx Diabetes: Yes Hx Gastroesophageal Reflux: Yes Hx Renal Disease: Yes - dialysis ,ESRD Hx Cancer: No Hx of HIV: No Hx Hepatitis C: No Hx MRSA: No Surgical History: tonsillectomy - knee,cataract,a-v fistula for dialysis access , other - Hysterectomy, - Vaccination History Hx Tetanus, Diphtheria Vaccination: No Hx Influenza Vaccination: Yes Hx Pneumococcal Vaccination: No - Social History Hx Tobacco Use: No Hx Chewing Tobacco Use: No Hx Alcohol Use: No Hx Substance Use: No Hx Substance Use Treatment: No Hx Depression: No Hx Physical Abuse: No Hx Emotional Abuse: No Hx Suspected Abuse: No - Activities of Daily Living [facility]/Assisted Living (if applicable):: [facility] - Female History Patient is a Female of Child Bearing Age (10 -59 yrs old): No Patient : No Family Medical History - Family History Mother Family History: Unknown Hx Family Stroke: Yes - several family members Hx Family Diabetes: Yes - several family members Physical Exam - Physical Exam General Appearance: Alert, No apparent distress Eye Exam: bilateral normal Ears, Nose, Throat: hearing grossly normal, normal ENT inspection, normal pharynx Neck: non-tender, full range of motion, supple Respiratory: no respiratory distress, no accessory muscle use, rales - bases Cardiovascular/Chest: normal peripheral pulses, regular rate, rhythm, no murmur Peripheral Pulses: radial,right: 2+, radial,left: 2+ Gastrointestinal/Abdominal: normal bowel sounds, non tender, soft, no organomegaly Back Exam: no CVA tenderness, no vertebral tenderness Neurologic: alert, normal mood/affect, oriented x 3 Skin Exam: normal color, warm/dry Lymphatic: no adenopathy Progress - Progress Progress: 10/01/17 19:50 Vital Signs 10/01/17 10/01/17 18:30 19:02 Temperature 102.6 F H Pulse Rate [ 123 H pulse ox] Respiratory 20 20 Rate Blood Pressure 142/73 [Right Arm] O2 Sat by Pulse 76 L Oximetry - Results/Orders Results/Orders: Laboratory Tests 10/01/17 10/01/17 10/01/17 19:30 19:30 19:40 WBC 9.1 RBC 2.90 L Hgb 10.5 L Hct 31.1 L MCV 107.4 H MCH 36.2 H MCHC 33.7 RDW 16.5 H Plt Count 139 MPV 8.9 Absolute Neuts (auto) 7.30 H Absolute Lymphs (auto) 0.80 L Absolute Monos (auto) 1.00 H Absolute Eos (auto) 0.00 Absolute Basos (auto) 0.00 Neutrophils % 79.7 H Lymphocytes % 8.8 L Monocytes % 10.5 H Eosinophils % 0.5 L Basophils % 0.5 Normal RBC Morphology 2+macrocytosis Sodium 142 Potassium 3.8 Chloride 94 L Carbon Dioxide 35 H Anion Gap 16.8 BUN 16 Creatinine 1.92 H BUN/Creatinine Ratio 8.3 L Random Glucose 176 H Serum Osmolality 288.6 Lactic Acid 1.6 Calcium 8.2 L Total Bilirubin 1.1 H AST 20 ALT 13 Alkaline Phosphatase 99 Serum Total Protein 7.2 Albumin 3.1 L Globulin 4.1 H Albumin/Globulin Ratio 0.8 L - EKG/XRAY/CT XRAY: chest - patchy infiltrate left lung Departure - Departure Clinical Impression: Pneumonia Qualifiers: Pneumonia type: due to unspecified organism Laterality: left Lung location: lower lobe of lung Qualified Code(s): J18.1 - Lobar pneumonia, unspecified organism Time of Disposition: 21:48 Disposition: Admit Patient Condition: Good Departure Forms: Patient Portal Self Enrollment Referrals: Darrel Marroquin III, MD [Primary Care Provider] - 1-2 Weeks Home Medications: Ambulatory Orders Acetaminophen [Tylenol] 650 mg PO Q6H PRN 07/05/16 Amiodarone HCl [Pacerone] 100 mg PO DAILY 07/05/16 Aspirin (Buffered) 325 mg [Bufferin 325 mg] 1 ea PO QD 07/05/16 Atorvastatin Calcium [Lipitor] 10 mg PO BEDTIME 07/05/16 Bisacodyl 10 mg SC DAILY PRN 07/05/16 Citalopram Hydrobromide [Celexa] 40 mg PO DAILY 07/05/16 Clonidine HCl 0.1 mg PO Q6H PRN 07/05/16 Cyclobenzaprine HCl [Flexeril] 5 mg PO BID 07/05/16 Diphenhydramine HCl 25 mg PO Q4H PRN 07/05/16 Docusate Sodium 100 mg PO BID 07/05/16 Famotidine 10 mg PO DAILY 07/05/16 HYDROcodone 5MG/APAP 325MG [[place] 5/325] 1 ea PO Q6HRS PRN 07/05/16 Insulin Aspart [Novolog] 3 unit SC AC 07/05/16 Insulin Detemir [Levemir] 55 unit SUBCU BID 07/05/16 Metoprolol Tartrate 25 mg PO Q8HR 07/05/16 Multiple Vitamin [Multi Vitamin Daily] 1 tab PO DAILY 07/05/16 Ondansetron [Ondansetron Odt] 4 mg PO Q4HR PRN 07/05/16 Pregabalin [Lyrica] 100 mg PO DAILY 07/05/16 Rivastigmine [Exelon] 13.3 mg TD DAILY 07/05/16 Zolpidem Tartrate 5 mg PO BEDTIME 07/05/16 Cyanocobalamin [Vitamin B12] 1,000 mcg PO MONTHLY 07/06/16 Magnesium Hydroxide [Milk Of Magnesia] 30 ml PO Q8HR PRN 07/06/16 Polyethylene Glycol 3350 [Miralax] 17 gm PO DAILY PRN 07/06/16 Sevelamer Carbonate [Renvela] 1,600 mg PO TIDFD 10/24/16 Acetaminophen W/ Codeine [Tylenol W/ CODEINE #3] 1 ea PO Q4H PRN 09/19/17 Gabapentin 100 mg PO BID 09/19/17 Liraglutide [Victoza] 18 mg SC DAILY 09/19/17 Memantine HCl [Namenda Xr] 28 mg PO DAILY 09/19/17 Omeprazole 20 mg PO BID 09/19/17 Decision To Admit - Decistion To Admit Decision to Admit Reason: Admit from ER Decision to Admit Date: 10/01/17 Decision to Admit Time: 21:49 - D/W Deb Welch -GISELL/Hospitalist
--- NOTE | 2017-10-01 20:46 | RAD ---
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 There are ill-defined patchy opacities within the left middle and lower lung zones. Prominence of the interstitial markings likely secondary to hypoventilation. No pneumothorax or pleural effusion. The cardiomediastinal silhouette is within normal limits. Impression: Patchy left lower lobe opacities concerning for pneumonia. Hypoventilatory exam. 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
[2017-10-01] MEDS ORDERED: cefTRIAXone SODIUM 1 GM in SODIUM CHL 0.9% 50ML MIN-BAG+ 50 ML IVPB ONE (21:46)
[2017-10-01] MEDS ORDERED: DOXYCYCLINE HYCLATE IV 100 MG in SODIUM CHLORIDE 0.9% 250ML 250 ML IVPB ONE (21:46)
[2017-10-01] MEDS ORDERED: cefTRIAXone SODIUM 1 GM VIAL ONE (22:49)
[2017-10-01] MEDS ORDERED: SODIUM CHL 0.9% 50ML MIN-BAG+ 50 ML IVPB ONE (22:49)
[2017-10-01] MEDS ORDERED: LEVALBUTEROL NEBS 1.25 MG/3 ML VIAL INH PRN (23:28)
[2017-10-01] MEDS ORDERED: IV SET AND CAP CHANGE INJ INJ SCH (23:30)
[2017-10-01] MEDS ORDERED: SODIUM CHLORIDE 0.9% 1000ML 1,000 ML IVS ONE (23:40)
[2017-10-01] MEDS ORDERED: PANTOPRAZOLE SODIUM IV 40 MG VIAL IV SCH (23:45)
[2017-10-01] MEDS ORDERED: ENOXAPARIN SODIUM 30 MG/0.3 ML SYG SUBCU SCH (23:45)
[2017-10-01] MEDS ORDERED: GLUCAGON INJ 1 MG VIAL SUBCU PRN (23:54)
[2017-10-01] MEDS ORDERED: DEXTROSE 50% 25 GM/50 ML SYG IV PRN (23:54)
--- NOTE | 2017-10-01 23:57 | PCM.CORE ---
Physician DVT/VTE - Prophylaxis Currently: Patient already on anticoagulation therapy - Nurse DVT Assessment & Total Each Risk Factor Represents 3 Points: Age over 75 years Each Risk Factor is 1 Point: Obesity (BMI >25), Serious Lung disease (pnemonia < 1month, COPD, emphysema,etc) DVT Assessment Score: 5 - 5 or more Very High Risk Treatments: Early Ambulation *, Sequential Compression Device
[2017-10-02] MEDS ORDERED: CEFEPIME 2 GM VIAL IVPB ONE (00:02)
[2017-10-02] MEDS ORDERED: SODIUM CHL 0.9% 50ML MIN-BAG+ 50 ML IVPB ONE (00:02)
[2017-10-02] MEDS: SODIUM CHLORIDE 0.9% (FLUSH) 10 ML SYG IV PRN ×2 (00:09→02:06)
[2017-10-02] MEDS: LEVALBUTEROL NEBS 1.25 MG/3 ML VIAL INH SCH ×2 (01:10→07:24)
[2017-10-02] MEDS ORDERED: METOPROLOL TARTRATE 25 MG TAB ONE (01:56)
[2017-10-02] MEDS ORDERED: METOPROLOL TARTRATE 25 MG TAB PO ONE (01:57)
[2017-10-02] MEDS ORDERED: CEFEPIME 2 GM in SODIUM CHL 0.9% 50ML MIN-BAG+ 50 ML IVPB SCH (02:00)
--- NOTE | 2017-10-02 07:28 | RAD ---
EXAM DESCRIPTION: Chest,1 View CLINICAL HISTORY: Pneumonia COMPARISON: October 01, 2017 FINDINGS: The heart is at the upper limits of normal size for AP technique, stable. Mediastinal contours are otherwise unremarkable. Patchy airspace consolidation is noted in the left lung base with additional subtle alveolar opacity in the mid right lung, not significantly changed from yesterday. No pleural effusion is identified. The bronchovascular markings are indistinct. There is no pneumothorax or acute fracture. IMPRESSION: Bilateral pneumonia or edema, not significantly changed from yesterday. Follow-up chest radiograph is recommended to document complete resolution and exclude the possibility of an underlying lesion in one or both lungs. Electronically signed by: Bimal Frederick MD 10/02/2017 7:27 AM [employer]
[2017-10-02] MEDS ORDERED: INSULIN, REG.(HUMAN) 100 U/ML VIAL ONE (07:53)
[2017-10-02] MEDS: INSULIN LISPRO 100 UNITS/ML PEN SUBCU SCH ×2 (08:22→11:47)
[2017-10-02] MEDS ORDERED: SODIUM CHLORIDE 0.9% (FLUSH) 10 ML SYG IV SCH (09:00)
[2017-10-02] MEDS ORDERED: CYCLOBENZAPRINE HCL 5 MG TAB PO SCH (11:00)
[2017-10-02] MEDS ORDERED: AMIODARONE HCL 200 MG TAB PO SCH (11:00)
[2017-10-02] MEDS ORDERED: GABAPENTIN 100 MG CAP PO SCH (11:00)
[2017-10-02] MEDS ORDERED: ASPIRIN (ENTERIC COATED) 325 MG TAB PO SCH (11:00)
[2017-10-02] MEDS ORDERED: CITALOPRAM HBR 20 MG TAB PO SCH (11:00)
[2017-10-02] MEDS ORDERED: NON-FORMULARY MEDICATION 1 EA MIS (Memantine Hcl [Namenda Xr] 28 MG) PO SCH (11:00)
[2017-10-02] MEDS ORDERED: INSULIN DETEMIR 100 UNITS/ML PEN SUBCU SCH (11:00)
[2017-10-02] MEDS ORDERED: RIVASTIGMINE 13.3 MG TD SCH (11:00)
[2017-10-02] MEDS ORDERED: PREGABALIN 100 MG CAP PO SCH (11:00)
[2017-10-02] MEDS ORDERED: CITALOPRAM HBR 20 MG TAB ONE (11:11)
[2017-10-02] MEDS ORDERED: AMIODARONE HCL 200 MG TAB ONE (11:12)
[2017-10-02] MEDS ORDERED: PREGABALIN 100 MG CAP ONE (11:12)
[2017-10-02] MEDS ORDERED: PANTOPRAZOLE SODIUM TAB 40 MG PO SCH (11:30)
[2017-10-02] MEDS ORDERED: SEVELAMER CARBONATE 1600 MG PO SCH (12:00)
[2017-10-02] MEDS ORDERED: METOPROLOL TARTRATE 25 MG TAB PO SCH (14:00)
[2017-10-02 14:03] VITALS: BP 141/74; TEMP 99.9; O2SAT 93
[2017-10-02] MEDS ORDERED: ENOXAPARIN SODIUM 30 MG/0.3 ML SYG SUBCU SCH (21:00)
--- NOTE | 2017-10-11 13:23 | SSS ---
SUPERVISING PHYSICIAN: Ulisses Vincent MD DATE OF ADMISSION: 10/01/17 DATE OF DISCHARGE: 10/02/17 DISCHARGE DIAGNOSIS: 1. Left lower lobe pneumonia with concerns for systemic inflammatory response syndrome with a fever on admission of 101.7, low O2 saturation of 79%, heart rate up to 119 and radiographic evidence of left lower lobe pneumonia. 2. End-stage renal disease, presently on dialysis on [id number]. 3. Diabetes mellitus, type 2. 4. Hypertension. 5. Polymyalgia rheumatica. 6. History of atrial fibrillation. 7. Gastroesophageal reflux disease. HISTORY OF PRESENT ILLNESS: This is a 77-year-old female patient who presented to the Emergency Room on the evening of 10/01/17 with complaints of cough and fever for two days. Her vital signs in the Emergency Room showed a temperature of 101.7, pulse rate 90, blood pressure 136/52, respiratory rate 20. Her original pulse oximetry was 79% on room air, but with 3 liters nasal cannula, it came up to 94%. She was initially given ceftriaxone in the Emergency Room and I was called for admission for left lower lobe pneumonia. It is to be noted that I was not informed that the patient is in end-stage renal disease with presently on 3 times a week dialysis. PAST MEDICAL HISTORY: 1. Diabetes mellitus, type 2. 2. Gastroesophageal reflux disease. 3. Hypertension. 4. Osteoarthritis. 5. History of atrial fibrillation. 6. Endstage renal disease on dialysis starting in the fall of 2015. 7. Polymyalgia rheumatica. 8. Chronic obesity. PAST SURGICAL HISTORY: 1. Hysterectomy. 2. Left total knee replacement. 3. Removal of right facial cheek tumor in 1948. 4. Benign left breast tumor in 1949. 5. Cyst removed from larynx in 1985. 6. Multiple knee surgeries. 7. Placement of hemodialysis catheter per Dr. Kumar on 07/27/16. OUTPATIENT MEDICATIONS: Per the EMR and awaiting verification. ALLERGIES: ACTOS, ALTACE, CODEINE, DOXYCYCLINE. FAMILY HISTORY: Father at age 82 of lung cancer. He had Alzheimer's and melanoma. He was a smoker. Mother at age 80, cause of was cerebrovascular accident. She had lung cancer and was a smoker. Sister has arthritis. Maternal grandmother had breast cancer and type 2 diabetes mellitus. SOCIAL HISTORY: She is retired. She has one child. She denies any ETOH or tobacco abuse. REVIEW OF SYSTEMS: GENERAL: Positive for fever and fatigue. Negative for weight changes. HEENT: Negative for sinus symptoms, ear pain, vision changes or sore throat. RESPIRATORY: Per history of present illness. CARDIAC: Negative for chest pain, palpitations or tachycardia. GASTROINTESTINAL: Negative for nausea, vomiting, diarrhea, constipation or abdominal pain. She did have nausea and vomiting prior to her admission to the Emergency Room. GENITOURINARY: She voids only rarely. She has endstage renal disease and is on dialysis [id number]. MUSCULOSKELETAL: Negative for arthralgias, myalgias. NEUROLOGIC: Negative for headache, dizziness or seizures. PHYSICAL EXAMINATION: VITAL SIGNS: Temperature 100.5. Heart rate 104. Blood pressure 135/62. Respiratory rate 20. O2 saturation 92% on 3 liters nasal cannula. GENERAL: This is a 77-year-old female who is lying in her hospital bed. She is in no acute distress. HEENT: Normocephalic, atraumatic. Pupils are equal and reactive. Oropharynx is clear. NECK: Supple without mass. No jugular venous distention. RESPIRATORY: No respiratory distress. No accessory muscles used. Her lung sounds are essentially clear at the apices, but diminished at the bases most prominently on the left lower lobe. CARDIOVASCULAR: Slightly irregular rhythm, mildly tachycardic rate. No murmur. ABDOMEN: Slightly obese, nondistended, nontender. Bowel sounds are positive. EXTREMITIES: No cyanosis, clubbing or edema. SKIN: Warm and dry. Normal color. NEUROLOGIC: Awake, alert and oriented times three. Cranial nerves II-XII are grossly intact. LABORATORY: WBC 9.4, hemoglobin 9.3, hematocrit 27.3, platelet count 122. She originally had a left shift in the Emergency Room with neutrophils 79.7. Sodium 142, potassium 3.6, chloride 97, carbon dioxide 30, BUN 23, creatinine 2.57. In the Emergency Room, it was 1.92. Glucose 149. Blood cultures and sputum cultures have been done and are awaiting results. Chest x-ray per radiologic interpretation shows bilateral pneumonia or edema, not significantly changed from yesterday. Followup chest radiograph is recommended to document complete resolution and exclude the possibility of an underlying lesion in one or both lungs. All other labs and films have been reviewed via the EMR. DISCHARGE PLAN: After reviewing the chart and discovering that the patient was on dialysis, I spoke with her accounting director, Dr. Bello, in [place] and he agreed that she needed to be transferred so that she could have her dialysis while she is in the hospital. He agreed to the transfer. The patient will be transferred to [facility] via ambulance. She is in stable condition. Her labs and reports have been sent with the patient. She was started on cefepime and her ceftriaxone was discontinued. Dr. Bello agreed that that was the appropriate medication for her given her history, so she will be continued on that. On discharge from [facility], she is to followup with her primary care physician, Dr. Marroquin. If she has any further problems or complications, she is to followup with Dr. Marroquin or come to the Emergency Room. Dr. Vincent is the collaborating physician and available for consultation. #[id number] MTDD
== END 2017-10-02 11:30 | disposition short-term general hospital (02) | DRG 193 ==
LOC: ER 17:40 → OBSVTOIN 22:31 → MS 22:31
PROVIDERS: ADMIT Nurse Practitioner Acute Care; ATTEND Nurse Practitioner Acute Care
DX: J18.1 Lobar pneumonia, unspecified organism (principal); N18.6 End stage renal disease; I12.0 Hypertensive chronic kidney disease with stage 5 chronic kidney disease or end stage renal disease; E11.22 Type 2 diabetes mellitus with diabetic chronic kidney disease; F03.90 Unspecified dementia, unspecified severity, without behavioral disturbance, psychotic disturbance, mood disturbance, and anxiety; I48.91 Unspecified atrial fibrillation; K21.9 Gastro-esophageal reflux disease without esophagitis; Z79.891 Long term (current) use of opiate analgesic; Z99.2 Dependence on renal dialysis; Z79.4 Long term (current) use of insulin; Z79.82 Long term (current) use of aspirin; Z79.899 Other long term (current) drug therapy; M35.3 Polymyalgia rheumatica; M19.90 Unspecified osteoarthritis, unspecified site; E66.9 Obesity, unspecified; Z96.652 Presence of left artificial knee joint; Z88.3 Allergy status to other anti-infective agents; Z88.5 Allergy status to narcotic agent; Z88.8 Allergy status to other drugs, medicaments and biological substances; Z68.36 Body mass index [BMI] 36.0-36.9, adult

== ENCOUNTER 2017-11-03 16:40 | Emergency (ER) | payer OTHER ==
[2017-11-03] MEDS ORDERED: ACETAMINOPHEN 325 MG TAB PO ONE (17:01)
[2017-11-03] MEDS ORDERED: FLUCONAZOLE 100 MG TAB PO ONE (17:01)
[2017-11-03] MEDS ORDERED: IBUPROFEN 200 MG TAB PO ONE (17:01)
--- NOTE | 2017-11-03 17:14 | RAD ---
Procedure: XR CHEST 1 VIEW Exam Date: 11/03/2017 5:02 PM JAVA DEVELOPER WITH [employer] Ordering Provider: Chucky Vincent Clinical Indication: cough, fever Comparison: October 02, 2017 Findings: Lung volumes are low. There is suggestion of faint left perihilar reticular/interstitial prominence. No pleural effusion or pneumothorax is present. Heart size is normal. Impression: Findings suggestive of interstitial lung disease primarily affecting the left lung similar to previous examination. Atypical infectious process felt less likely given the long-term findings. No acute pulmonary process. Electronically signed by: Antonio Bello MD 11/03/2017 5:13 PM JAVA DEVELOPER [employer]
[2017-11-03] MEDS ORDERED: IPRATROPIUM/ALBUTEROL 3 ML VIAL NEB ONE (17:44)
[2017-11-03] MEDS ORDERED: OSELTAMIVIR 75 MG CAP PO ONE (17:44)
--- NOTE | 2017-11-03 18:05 | ED.PDOC ---
History of Present Illness - General Chief Complaint: Respiratory Problem Stated Complaint: Continued cough, congestion Time Seen by Provider: 11/03/17 16:48 Source: patient Exam Limitations: no limitations - History of Present Illness Initial Comments: the patient is a 77-year-old female presenting to the emergency room secondary to worsening cough for the last 3 days associated with some sore throat and runny nose. She is in no distress. Mild headache and mild body aches. She is in a long-term care facility. No chest pain. No real shortness of breath. No syncope. Her oxygen levels range from 90-95% on room air. No history of any COPD. She did have pneumonia 1 month ago. Timing/Duration: unsure Severity: moderate Improving Factors: nothing Worsening Factors: nothing Associated Symptoms: cough, fever/chills, malaise Allergies/Adverse Reactions: Allergies NO KNOWN ALLERGY Allergy (Verified 11/03/17 16:59) Home Medications: Ambulatory Orders Acetaminophen [Tylenol] 650 mg PO Q6H PRN 07/05/16 Amiodarone HCl [Pacerone] 100 mg PO DAILY 07/05/16 Aspirin (Buffered) 325 mg [Bufferin 325 mg] 1 ea PO QD 07/05/16 Bisacodyl 10 mg [place] DAILY PRN 07/05/16 Citalopram Hydrobromide [Celexa] 40 mg PO DAILY 07/05/16 Clonidine HCl 0.1 mg PO Q8H PRN 07/05/16 Cyclobenzaprine HCl [Flexeril] 5 mg PO BID 07/05/16 Diphenhydramine HCl 25 mg PO Q4H PRN 07/05/16 Docusate Sodium 100 mg PO BID 07/05/16 Insulin Detemir [Levemir Pen] 55 unit SUBCU BID 07/05/16 Metoprolol Tartrate 25 mg PO Q8HR 07/05/16 Multiple Vitamin [Multi Vitamin Daily] 1 tab PO DAILY 07/05/16 Ondansetron [Ondansetron Odt] 4 mg PO Q4HR PRN 07/05/16 Rivastigmine [Exelon] 13.3 mg TD DAILY 07/05/16 Zolpidem Tartrate 5 mg PO BEDTIME 07/05/16 Cyanocobalamin [Vitamin B12] 1,000 mcg IM MONTHLY 07/06/16 Magnesium Hydroxide [Milk Of Magnesia] 30 ml PO Q8HR PRN 07/06/16 Polyethylene Glycol 3350 [Miralax] 17 gm PO DAILY PRN 07/06/16 Sevelamer Carbonate [Renvela] 1,600 mg PO TIDFD 10/24/16 Acetaminophen W/ Codeine [Tylenol W/ CODEINE #3] 1 ea PO Q4H PRN 09/19/17 Gabapentin 100 mg PO BID 09/19/17 Liraglutide [Victoza] 18 mg SC DAILY 09/19/17 Memantine HCl [Namenda Xr] 28 mg PO DAILY 09/19/17 Dextrose (Diabetic Use) [Glutose 15] 40 % PO PRN PRN 10/02/17 Glucagon HCl (Diagnostic) [Glucagon] 1 mg IJ PRN PRN 10/02/17 HYDROcodone 5MG/APAP 325MG [[place] 5/325] 1 tab PO Q6H PRN 10/02/17 Insulin Lispro [Humalog] 3 unit SUBCU AC 10/02/17 Oseltamivir Capsule [Tamiflu] 75 mg PO BID 5 Days #10 capsule 11/03/17 Pantoprazole Sodium 40 mg PO DAILY 11/03/17 Review of Systems - Review of Systems Constitutional: States: fever, malaise EENTM: States: nose congestion, throat pain Respiratory: States: cough Cardiology: States: no symptoms reported Gastrointestinal/Abdominal: States: no symptoms reported Genitourinary: States: no symptoms reported Musculoskeletal: States: no symptoms reported Skin: States: no symptoms reported Neurological: States: no symptoms reported Endocrine: States: no symptoms reported All other Systems: No Change from Baseline Past Medical History (General) - Patient Medical History Hx Seizures: No Hx Stroke: No Hx Dementia: Yes Hx Asthma: No Hx of COPD: No Hx Cardiac Disorders: Yes - afib Hx Congestive Heart Failure: No Hx Pacemaker: No Hx Hypertension: Yes Hx Thyroid Disease: Yes Hx Diabetes: Yes Hx Gastroesophageal Reflux: Yes Hx Renal Disease: Yes - dialysis ,ESRD Hx Cancer: No Hx of HIV: No Hx Hepatitis C: No Hx MRSA: No Surgical History: Hysterectomy, other - Vaccination History Hx Tetanus, Diphtheria Vaccination: No Hx Influenza Vaccination: Yes - 2017 Hx Pneumococcal Vaccination: No - Social History Hx Tobacco Use: No Hx Chewing Tobacco Use: No Hx Alcohol Use: No Hx Substance Use: No Hx Substance Use Treatment: No Hx Depression: No Hx Physical Abuse: No Hx Emotional Abuse: No Hx Suspected Abuse: No - Female History Patient : No Family Medical History - Family History Mother Family History: Unknown Hx Family Stroke: Yes - several family members Hx Family Diabetes: Yes - several family members Physical Exam - Physical Exam General Appearance: Alert, Comfortable, No apparent distress Eye Exam: bilateral normal Ears, Nose, Throat: hearing grossly normal, nasal congestion, pharyngeal erythema Neck: full range of motion, supple Respiratory: no respiratory distress, no accessory muscle use, rhonchi - diffuse and course Cardiovascular/Chest: normal peripheral pulses, regular rate, rhythm, no edema Peripheral Pulses: radial,right: 2+, radial,left: 2+, dorsalis pedis,right: 2+, dorsalis pedis,left: 2+ Gastrointestinal/Abdominal: non tender, soft Rectal Exam: deferred Back Exam: normal inspection, no vertebral tenderness Extremity: non-tender, normal inspection, no pedal edema, normal capillary refill Neurologic: nursing education specialist II-XII nml as tested, alert, normal mood/affect, oriented x 3 Skin Exam: normal color Comments: Vital Signs - 24 hr 11/03/17 16:48 Temperature 101.0 F H Pulse Rate [ 97 H Left Radial] Respiratory 24 Rate Blood Pressure 125/65 [Right Arm] O2 Sat by Pulse 92 L Oximetry Progress - Progress Progress: 11/03/17 18:05 the patient is 77-year-old female presenting to the emergency room secondary to bronchitis and an upper respiratory tract infection that appear to be due to the flu. The patient is being started on Tamiflu. Motrin and Tylenol can be alternated to help reduce symptoms. She needs to be kept well hydrated. She is oxygenating well at this point and in no distress. She should be followed up by her primary care doctor on Sunday. She should return to the emergency room for any significant worsening. - Results/Orders Results/Orders: 11/03/17 17:02 UA [URINALYSIS] Stat 11/03/17 17:29 BLOOD CULTURE Stat 11/03/17 18:00 SVN/Updraft Therapy .ONCE 11/04/17 09:00 Updrafts Daily Laboratory Results - last 24 hr 11/03/17 11/03/17 17:29 17:29 WBC 5.8 RBC 2.87 L Hgb 10.0 L Hct 30.4 L MCV 105.9 H MCH 34.8 H MCHC 32.9 L RDW 17.4 H Plt Count 155 MPV 8.3 Absolute Neuts (auto) 4.20 Absolute Lymphs (auto) 0.90 L Absolute Monos (auto) 0.50 Absolute Eos (auto) 0.20 Absolute Basos (auto) 0.10 Neutrophils % 72.2 Lymphocytes % 16.0 L Monocytes % 8.2 Eosinophils % 2.7 Basophils % 0.9 Sodium 142 Potassium 3.6 Chloride 97 L Carbon Dioxide 31 Anion Gap 17.6 BUN 27 H Creatinine 3.83 H BUN/Creatinine Ratio 7.0 L Random Glucose 184 H Serum Osmolality 293.0 Calcium 8.7 Total Bilirubin 0.5 AST 29 ALT 13 Alkaline Phosphatase 95 B-Natriuretic Peptide 780.0 H* Serum Total Protein 7.6 Albumin 3.7 Globulin 3.9 H Albumin/Globulin Ratio 0.9 L the patient has interstitial lung disease. No evidence of any acute pneumonia. the patient has tested positive for flu a Departure - Departure Clinical Impression: Influenza Disposition: Discharge to Home or Self Care Condition: Fair Departure Forms: ED Discharge - Pt. Copy, Patient Portal Self Enrollment Instructions: Influenza Diet: regular diet Activity: increase activity as tolerated Referrals: Darrel Marroquin III, MD [Primary Care Provider] - 1-2 Days Prescriptions: Oseltamivir Capsule [Tamiflu] 75 mg PO BID 5 Days #10 capsule Home Medications: Ambulatory Orders Acetaminophen [Tylenol] 650 mg PO Q6H PRN 07/05/16 Amiodarone HCl [Pacerone] 100 mg PO DAILY 07/05/16 Aspirin (Buffered) 325 mg [Bufferin 325 mg] 1 ea PO QD 07/05/16 Bisacodyl 10 mg [place] DAILY PRN 07/05/16 Citalopram Hydrobromide [Celexa] 40 mg PO DAILY 07/05/16 Clonidine HCl 0.1 mg PO Q8H PRN 07/05/16 Cyclobenzaprine HCl [Flexeril] 5 mg PO BID 07/05/16 Diphenhydramine HCl 25 mg PO Q4H PRN 07/05/16 Docusate Sodium 100 mg PO BID 07/05/16 Insulin Detemir [Levemir Pen] 55 unit SUBCU BID 07/05/16 Metoprolol Tartrate 25 mg PO Q8HR 07/05/16 Multiple Vitamin [Multi Vitamin Daily] 1 tab PO DAILY 07/05/16 Ondansetron [Ondansetron Odt] 4 mg PO Q4HR PRN 07/05/16 Rivastigmine [Exelon] 13.3 mg TD DAILY 07/05/16 Zolpidem Tartrate 5 mg PO BEDTIME 07/05/16 Cyanocobalamin [Vitamin B12] 1,000 mcg IM MONTHLY 07/06/16 Magnesium Hydroxide [Milk Of Magnesia] 30 ml PO Q8HR PRN 07/06/16 Polyethylene Glycol 3350 [Miralax] 17 gm PO DAILY PRN 07/06/16 Sevelamer Carbonate [Renvela] 1,600 mg PO TIDFD 10/24/16 Acetaminophen W/ Codeine [Tylenol W/ CODEINE #3] 1 ea PO Q4H PRN 09/19/17 Gabapentin 100 mg PO BID 09/19/17 Liraglutide [Victoza] 18 mg SC DAILY 09/19/17 Memantine HCl [Namenda Xr] 28 mg PO DAILY 09/19/17 Dextrose (Diabetic Use) [Glutose 15] 40 % PO PRN PRN 10/02/17 Glucagon HCl (Diagnostic) [Glucagon] 1 mg IJ PRN PRN 10/02/17 HYDROcodone 5MG/APAP 325MG [[place] 5/325] 1 tab PO Q6H PRN 10/02/17 Insulin Lispro [Humalog] 3 unit SUBCU AC 10/02/17 Oseltamivir Capsule [Tamiflu] 75 mg PO BID 5 Days #10 capsule 11/03/17 Pantoprazole Sodium 40 mg PO DAILY 11/03/17 Additional Instructions: the patient is 77-year-old female presenting to the emergency room secondary to bronchitis and an upper respiratory tract infection that appear to be due to the flu. The patient is being started on Tamiflu. Motrin and Tylenol can be alternated to help reduce symptoms. She needs to be kept well hydrated. She is oxygenating well at this point and in no distress. She should be followed up by her primary care doctor on Sunday. She should return to the emergency room for any significant worsening.[email or web address] seemed to help symptomatology so the patient will have this added for the next week.
[2017-11-03 19:27] VITALS: BP 134/68; TEMP 100.3; O2SAT 96
== END 2017-11-03 19:52 | disposition home or self-care (01) ==
LOC: ER 16:40
DX: J11.1 Influenza due to unidentified influenza virus with other respiratory manifestations (principal); I48.91 Unspecified atrial fibrillation; E07.9 Disorder of thyroid, unspecified; I12.0 Hypertensive chronic kidney disease with stage 5 chronic kidney disease or end stage renal disease; E11.22 Type 2 diabetes mellitus with diabetic chronic kidney disease; N18.6 End stage renal disease; Z99.2 Dependence on renal dialysis
CPT/HCPCS: 36415; 71045; 80053; 83880; 85025; 87040; 87502; 94640; J7620

== ENCOUNTER 2017-11-30 16:59 | Emergency (ER) | payer OTHER ==
--- NOTE | 2017-11-30 19:04 | ED.PDOC ---
History of Present Illness - General Chief Complaint: Cardiovascular Problem Stated Complaint: left ankle edema Time Seen by Provider: 11/30/17 17:44 Source: patient Exam Limitations: no limitations - History of Present Illness Initial Comments: SHE WAS ON DIALYIS TODAY AND IT WAS NOTED THAT HER LEFT ANKLE WAS SWOLLEN. SHE WAS SENT HERE TO R/O DVT. Timing/Duration: 24 hours Severity: mild Activities at Onset: none Prior Chest Pain/Cardiac Workup: no prior chest pain Improving Factors: nothing Worsening Factors: nothing Allergies/Adverse Reactions: Allergies NO KNOWN ALLERGY Allergy (Verified 11/03/17 16:59) Home Medications: Ambulatory Orders Acetaminophen [Tylenol] 650 mg PO Q6H PRN 07/05/16 Amiodarone HCl [Pacerone] 100 mg PO DAILY 07/05/16 Aspirin (Buffered) 325 mg [Bufferin 325 mg] 1 ea PO QD 07/05/16 Bisacodyl 10 mg [place] DAILY PRN 07/05/16 Citalopram Hydrobromide [Celexa] 40 mg PO DAILY 07/05/16 Clonidine HCl 0.1 mg PO Q8H PRN 07/05/16 Cyclobenzaprine HCl [Flexeril] 5 mg PO BID 07/05/16 Diphenhydramine HCl 25 mg PO Q4H PRN 07/05/16 Docusate Sodium 100 mg PO BID 07/05/16 Insulin Detemir [Levemir Pen] 55 unit SUBCU BID 07/05/16 Metoprolol Tartrate 25 mg PO Q8HR 07/05/16 Multiple Vitamin [Multi Vitamin Daily] 1 tab PO DAILY 07/05/16 Ondansetron [Ondansetron Odt] 4 mg PO Q4HR PRN 07/05/16 Rivastigmine [Exelon] 13.3 mg TD DAILY 07/05/16 Zolpidem Tartrate 5 mg PO BEDTIME 07/05/16 Cyanocobalamin [Vitamin B12] 1,000 mcg IM MONTHLY 07/06/16 Magnesium Hydroxide [Milk Of Magnesia] 30 ml PO Q8HR PRN 07/06/16 Polyethylene Glycol 3350 [Miralax] 17 gm PO DAILY PRN 07/06/16 Sevelamer Carbonate [Renvela] 1,600 mg PO TIDFD 10/24/16 Acetaminophen W/ Codeine [Tylenol W/ CODEINE #3] 1 ea PO Q4H PRN 09/19/17 Gabapentin 100 mg PO BID 09/19/17 Liraglutide [Victoza] 18 mg SC DAILY 09/19/17 Memantine HCl [Namenda Xr] 28 mg PO DAILY 09/19/17 Dextrose (Diabetic Use) [Glutose 15] 40 % PO PRN PRN 10/02/17 Glucagon HCl (Diagnostic) [Glucagon] 1 mg IJ PRN PRN 10/02/17 HYDROcodone 5MG/APAP 325MG [[place] 5/325] 1 tab PO Q6H PRN 10/02/17 Insulin Lispro [Humalog] 3 unit SUBCU AC 10/02/17 Oseltamivir Capsule [Tamiflu] 75 mg PO BID 5 Days #10 capsule 11/03/17 Pantoprazole Sodium 40 mg PO DAILY 11/03/17 Review of Systems - Review of Systems Constitutional: States: no symptoms reported EENTM: States: no symptoms reported Respiratory: States: no symptoms reported Cardiology: States: no symptoms reported Gastrointestinal/Abdominal: States: no symptoms reported Genitourinary: States: no symptoms reported Musculoskeletal: States: no symptoms reported, joint swelling Skin: States: no symptoms reported Neurological: States: no symptoms reported Endocrine: States: no symptoms reported Past Medical History (General) - Patient Medical History Hx Seizures: No Hx Stroke: No Hx Dementia: Yes Hx Asthma: No Hx of COPD: No Hx Cardiac Disorders: Yes - afib Hx Congestive Heart Failure: No Hx Pacemaker: No Hx Hypertension: Yes Hx Thyroid Disease: Yes Hx Diabetes: Yes Hx Gastroesophageal Reflux: Yes Hx Renal Disease: Yes - dialysis ,ESRD Hx Cancer: No Hx of HIV: No Hx Hepatitis C: No Hx MRSA: No - Vaccination History Hx Tetanus, Diphtheria Vaccination: No Hx Influenza Vaccination: Yes - 2017 Hx Pneumococcal Vaccination: No - Social History Hx Tobacco Use: No Hx Chewing Tobacco Use: No Hx Alcohol Use: No Hx Substance Use: No Hx Substance Use Treatment: No Hx Depression: No Hx Physical Abuse: No Hx Emotional Abuse: No Hx Suspected Abuse: No - Female History Patient : No Family Medical History - Family History Mother Family History: Unknown Hx Family Stroke: Yes - several family members Hx Family Diabetes: Yes - several family members Physical Exam - Physical Exam General Appearance: Alert, Well Developed, Well Groomed, Well Hydrated Eyes, Ears, Nose, Throat Exam: PERRL/EOMI, normal ENT inspection Neck: non-tender, full range of motion Respiratory: chest non-tender, lungs clear, normal breath sounds, no respiratory distress Cardiovascular/Chest: normal peripheral pulses, regular rate, rhythm, other - MILD EDEMA OF THE LEFT ANKLE Gastrointestinal/Abdominal: normal bowel sounds, non tender Rectal Exam: deferred Extremity: swelling, other - NEGATIVE ANNIE SIGN Neurologic: no motor/sensory deficits, alert Skin Exam: normal color Lymphatic: no adenopathy Progress - Results/Orders Results/Orders: I HAVE EXPLAINED THAT WE DONT HAVE SONOGRAPHY NOW BY WILL PERFORM A D-DIMER. SHE WANTS TO LEAVE Departure - Departure Clinical Impression: Edema extremities, End stage renal disease on dialysis Disposition: Discharge to Home or Self Care Condition: Good Departure Forms: ED Discharge - Pt. Copy, Patient Portal Self Enrollment Instructions: DI for Dependent Edema Referrals: Darrel Marroquin III, MD [Primary Care Provider] - 1-2 Weeks Home Medications: Ambulatory Orders Acetaminophen [Tylenol] 650 mg PO Q6H PRN 07/05/16 Amiodarone HCl [Pacerone] 100 mg PO DAILY 07/05/16 Aspirin (Buffered) 325 mg [Bufferin 325 mg] 1 ea PO QD 07/05/16 Bisacodyl 10 mg [place] DAILY PRN 07/05/16 Citalopram Hydrobromide [Celexa] 40 mg PO DAILY 07/05/16 Clonidine HCl 0.1 mg PO Q8H PRN 07/05/16 Cyclobenzaprine HCl [Flexeril] 5 mg PO BID 07/05/16 Diphenhydramine HCl 25 mg PO Q4H PRN 07/05/16 Docusate Sodium 100 mg PO BID 07/05/16 Insulin Detemir [Levemir Pen] 55 unit SUBCU BID 07/05/16 Metoprolol Tartrate 25 mg PO Q8HR 07/05/16 Multiple Vitamin [Multi Vitamin Daily] 1 tab PO DAILY 07/05/16 Ondansetron [Ondansetron Odt] 4 mg PO Q4HR PRN 07/05/16 Rivastigmine [Exelon] 13.3 mg TD DAILY 07/05/16 Zolpidem Tartrate 5 mg PO BEDTIME 07/05/16 Cyanocobalamin [Vitamin B12] 1,000 mcg IM MONTHLY 07/06/16 Magnesium Hydroxide [Milk Of Magnesia] 30 ml PO Q8HR PRN 07/06/16 Polyethylene Glycol 3350 [Miralax] 17 gm PO DAILY PRN 07/06/16 Sevelamer Carbonate [Renvela] 1,600 mg PO TIDFD 10/24/16 Acetaminophen W/ Codeine [Tylenol W/ CODEINE #3] 1 ea PO Q4H PRN 09/19/17 Gabapentin 100 mg PO BID 09/19/17 Liraglutide [Victoza] 18 mg SC DAILY 09/19/17 Memantine HCl [Namenda Xr] 28 mg PO DAILY 09/19/17 Dextrose (Diabetic Use) [Glutose 15] 40 % PO PRN PRN 10/02/17 Glucagon HCl (Diagnostic) [Glucagon] 1 mg IJ PRN PRN 10/02/17 HYDROcodone 5MG/APAP 325MG [[place] 5/325] 1 tab PO Q6H PRN 10/02/17 Insulin Lispro [Humalog] 3 unit SUBCU AC 10/02/17 Oseltamivir Capsule [Tamiflu] 75 mg PO BID 5 Days #10 capsule 11/03/17 Pantoprazole Sodium 40 mg PO DAILY 11/03/17
[2017-11-30 20:46] VITALS: BP 128/64; TEMP 97.3; O2SAT 90
== END 2017-11-30 19:20 | disposition home or self-care (01) ==
LOC: ER 16:59
DX: I12.0 Hypertensive chronic kidney disease with stage 5 chronic kidney disease or end stage renal disease (principal); E11.22 Type 2 diabetes mellitus with diabetic chronic kidney disease; N18.6 End stage renal disease; Z99.2 Dependence on renal dialysis; I48.91 Unspecified atrial fibrillation; R60.0 Localized edema; Z79.4 Long term (current) use of insulin; F03.90 Unspecified dementia, unspecified severity, without behavioral disturbance, psychotic disturbance, mood disturbance, and anxiety

== ENCOUNTER → 2017-12-07 | Outpatient (CLI) | payer OTHER ==
--- NOTE | 2017-12-07 11:27 | US ---
EXAM DESCRIPTION:Venous,Lower Extremity LT CLINICAL HISTORY: PAIN AND SWELLING IN LIMB. 729.5 729.81 COMPARISON: None TECHNIQUE: Grayscale and color Doppler sonographic evaluation of lower extremity deep venous structures. FINDINGS: Common femoral, superficial femoral, popliteal, peroneal and posterior tibial veins in left lower extremity are patent with full compressibility. No intraluminal filling defect identified in these deep venous structures. IMPRESSION: No sonographic evidence of deep venous thrombosis (DVT) in left lower extremity Electronically signed by: Garfield Layne MD 12/07/2017 11:26 AM [employer]
== END ==
LOC: US 09:40
PROVIDERS: ATTEND Podiatrist Foot & Ankle Surgery
DX: I80.10 Phlebitis and thrombophlebitis of unspecified femoral vein (principal); M79.609 Pain in unspecified limb; M79.89 Other specified soft tissue disorders

== ENCOUNTER 2018-04-01 12:42 | Emergency (ER) | payer OTHER ==
[2018-04-01] MEDS ORDERED: SODIUM CHLORIDE 0.9% 1000ML 500 ML IVS ONE (12:58)
--- NOTE | 2018-04-01 13:01 | ED.PDOC ---
History of Present Illness - General Chief Complaint: Respiratory Problem Stated Complaint: KNEE PAIN Time Seen by Provider: 04/01/18 12:54 Source: patient Exam Limitations: no limitations Additional Information: PT CURRENTLY AT [facility]. SHE FELL TODAY AND EMS WAS CALLED FOR SHANEKA KNEE PAIN. WHEN THEY ARRIVED PT WAS HYPOXIC WITH COUGH. SATS 84% ON RA. WAS TRANSPORTED FOR EVALUATION. - History of Present Illness Timing/Duration: other - TODAY Severity: moderate Improving Factors: nothing Worsening Factors: nothing Associated Symptoms: denies symptoms Allergies/Adverse Reactions: Allergies NO KNOWN ALLERGY Allergy (Verified 11/03/17 16:59) Home Medications: Ambulatory Orders Acetaminophen [Tylenol] 650 mg PO Q6H PRN 07/05/16 Amiodarone HCl [Pacerone] 100 mg PO DAILY 07/05/16 Aspirin (Buffered) 325 mg [Bufferin 325 mg] 1 ea PO QD 07/05/16 Bisacodyl 10 mg [place] DAILY PRN 07/05/16 Citalopram Hydrobromide [Celexa] 40 mg PO DAILY 07/05/16 Clonidine HCl 0.1 mg PO Q8H PRN 07/05/16 Cyclobenzaprine HCl [Flexeril] 5 mg PO BID 07/05/16 Diphenhydramine HCl 25 mg PO Q4H PRN 07/05/16 Docusate Sodium 100 mg PO BID 07/05/16 Insulin Detemir [Levemir Pen] 55 unit SUBCU BID 07/05/16 Metoprolol Tartrate 25 mg PO Q8HR 07/05/16 Multiple Vitamin [Multi Vitamin Daily] 1 tab PO DAILY 07/05/16 Ondansetron [Ondansetron Odt] 4 mg PO Q4HR PRN 07/05/16 Rivastigmine [Exelon] 13.3 mg TD DAILY 07/05/16 Zolpidem Tartrate 5 mg PO BEDTIME 07/05/16 Cyanocobalamin [Vitamin B12] 1,000 mcg IM MONTHLY 07/06/16 Magnesium Hydroxide [Milk Of Magnesia] 30 ml PO Q8HR PRN 07/06/16 Polyethylene Glycol 3350 [Miralax] 17 gm PO DAILY PRN 07/06/16 Sevelamer Carbonate [Renvela] 1,600 mg PO TIDFD 10/24/16 Acetaminophen W/ Codeine [Tylenol W/ CODEINE #3] 1 ea PO Q4H PRN 09/19/17 Gabapentin 100 mg PO BID 09/19/17 Liraglutide [Victoza] 18 mg SC DAILY 09/19/17 Memantine HCl [Namenda Xr] 28 mg PO DAILY 09/19/17 Dextrose (Diabetic Use) [Glutose 15] 40 % PO PRN PRN 10/02/17 Glucagon HCl (Diagnostic) [Glucagon] 1 mg IJ PRN PRN 10/02/17 HYDROcodone 5MG/APAP 325MG [Baldwin 5/325] 1 tab PO Q6H PRN 10/02/17 Insulin Lispro [Humalog] 3 unit SUBCU AC 10/02/17 Oseltamivir Capsule [Tamiflu] 75 mg PO BID 5 Days #10 capsule 11/03/17 Pantoprazole Sodium 40 mg PO DAILY 11/03/17 Review of Systems - Review of Systems Constitutional: Denies: chills, fever EENTM: States: no symptoms reported Respiratory: States: cough. Denies: short of breath Cardiology: Denies: chest pain, palpitations, syncope Gastrointestinal/Abdominal: Denies: abdominal pain, nausea, vomiting Genitourinary: States: no symptoms reported Musculoskeletal: States: other - SHANEKA KNEE PAIN Skin: States: no symptoms reported Neurological: States: no symptoms reported Endocrine: States: no symptoms reported Hematologic/Lymphatic: States: no symptoms reported Unable to Obtain Due To: dementia - MAKES ROS UNRELIABLE. Past Medical History (General) - Patient Medical History Hx Seizures: No Hx Stroke: No Hx Dementia: Yes Hx Asthma: No Hx of COPD: No Hx Cardiac Disorders: Yes - afib Hx Congestive Heart Failure: No Hx Pacemaker: No Hx Hypertension: Yes Hx Thyroid Disease: Yes Hx Diabetes: Yes Hx Gastroesophageal Reflux: Yes Hx Renal Disease: Yes - dialysis ,ESRD Hx Cancer: No Hx of HIV: No Hx Hepatitis C: No Hx MRSA: No - Vaccination History Hx Tetanus, Diphtheria Vaccination: No Hx Influenza Vaccination: Yes - 2017 Hx Pneumococcal Vaccination: No - Social History Hx Tobacco Use: No Hx Chewing Tobacco Use: No Hx Alcohol Use: No Hx Substance Use: No Hx Substance Use Treatment: No Hx Depression: No Hx Physical Abuse: No Hx Emotional Abuse: No Hx Suspected Abuse: No - Female History Patient : No Family Medical History - Family History Mother Family History: Unknown Hx Family Stroke: Yes - several family members Hx Family Diabetes: Yes - several family members Physical Exam - Physical Exam General Appearance: Alert, No apparent distress, Obese Eye Exam: bilateral normal Ears, Nose, Throat: hearing grossly normal, normal ENT inspection Neck: non-tender, full range of motion, supple, normal inspection Respiratory: other - DIMINISHED SHANEKA. SHANEKA I/E RALES, A FEW SCATTERED FAINT WHEEZES. SATS 84% ON RA PER EMS. (HYPOXIC) Cardiovascular/Chest: regular rate, rhythm, no murmur Gastrointestinal/Abdominal: normal bowel sounds, non tender, soft, no organomegaly, other - INCARCERATED, NON STRANGULATED VENTRAL HERNIA. Back Exam: normal inspection, no CVA tenderness, no vertebral tenderness Extremity: normal range of motion, other - SHANEKA TTP KNEES. NO BONY ABN/DEF. NVI, Neurologic: no motor/sensory deficits, alert, other - MILD-MOD DEMENTIA. Skin Exam: normal color, warm/dry Lymphatic: no adenopathy Progress - EKG/XRAY/CT EKG: Da - RATE 39, JUNCTIONAL RHYTHM, LAD, , nonspecific ST T wave Chg - NAIP , , Changed from - 10/23/16, SINUS RHYTHM REPLACED BY JUNCTIONAL Departure - Departure Clinical Impression: Hyperkalemia Chronic kidney disease (CKD) Qualifiers: Chronic kidney disease stage: on chronic dialysis Qualified Code(s): N18.6 - End stage renal disease; Z99.2 - Dependence on renal dialysis Pulmonary edema Qualifiers: Chronicity: acute Qualified Code(s): J81.0 - Acute pulmonary edema Hypertension Qualifiers: Hypertension type: essential hypertension Qualified Code(s): I10 - Essential ( primary) hypertension Time of Disposition: 15:06 - D/W DR TRINI RIVERA, ACCEPTS PT IN TRANSFER Disposition: Transfer to Hospital Condition: Fair Departure Forms: ED Discharge - Pt. Copy, Patient Portal Self Enrollment Referrals: Darrel Marroquin III, MD [Primary Care Provider] - 1-2 Weeks Home Medications: Ambulatory Orders Acetaminophen [Tylenol] 650 mg PO Q6H PRN 07/05/16 Amiodarone HCl [Pacerone] 100 mg PO DAILY 07/05/16 Aspirin (Buffered) 325 mg [Bufferin 325 mg] 1 ea PO QD 07/05/16 Bisacodyl 10 mg [place] DAILY PRN 07/05/16 Citalopram Hydrobromide [Celexa] 40 mg PO DAILY 07/05/16 Clonidine HCl 0.1 mg PO Q8H PRN 07/05/16 Cyclobenzaprine HCl [Flexeril] 5 mg PO BID 07/05/16 Diphenhydramine HCl 25 mg PO Q4H PRN 07/05/16 Docusate Sodium 100 mg PO BID 07/05/16 Insulin Detemir [Levemir Pen] 55 unit SUBCU BID 07/05/16 Metoprolol Tartrate 25 mg PO Q8HR 07/05/16 Multiple Vitamin [Multi Vitamin Daily] 1 tab PO DAILY 07/05/16 Ondansetron [Ondansetron Odt] 4 mg PO Q4HR PRN 07/05/16 Rivastigmine [Exelon] 13.3 mg TD DAILY 07/05/16 Zolpidem Tartrate 5 mg PO BEDTIME 07/05/16 Cyanocobalamin [Vitamin B12] 1,000 mcg IM MONTHLY 07/06/16 Magnesium Hydroxide [Milk Of Magnesia] 30 ml PO Q8HR PRN 07/06/16 Polyethylene Glycol 3350 [Miralax] 17 gm PO DAILY PRN 07/06/16 Sevelamer Carbonate [Renvela] 1,600 mg PO TIDFD 10/24/16 Acetaminophen W/ Codeine [Tylenol W/ CODEINE #3] 1 ea PO Q4H PRN 09/19/17 Gabapentin 100 mg PO BID 09/19/17 Liraglutide [Victoza] 18 mg SC DAILY 09/19/17 Memantine HCl [Namenda Xr] 28 mg PO DAILY 09/19/17 Dextrose (Diabetic Use) [Glutose 15] 40 % PO PRN PRN 10/02/17 Glucagon HCl (Diagnostic) [Glucagon] 1 mg IJ PRN PRN 10/02/17 HYDROcodone 5MG/APAP 325MG [Baldwin 5/325] 1 tab PO Q6H PRN 10/02/17 Insulin Lispro [Humalog] 3 unit SUBCU AC 10/02/17 Oseltamivir Capsule [Tamiflu] 75 mg PO BID 5 Days #10 capsule 11/03/17 Pantoprazole Sodium 40 mg PO DAILY 11/03/17
[2018-04-01 13:26] VITALS: TEMP 97.6
--- NOTE | 2018-04-01 13:42 | RAD ---
EXAM DESCRIPTION: Left knee, 2 views CLINICAL HISTORY: FALL WITH PAIN FINDINGS/ IMPRESSION: Left total knee arthroplasty without periprosthetic fracture or osteolysis. No large joint effusion or other diagnostic soft tissue abnormality Electronically signed by: Ulisses Joiner MD 04/01/2018 1:40 PM CDT
--- NOTE | 2018-04-01 13:42 | RAD ---
EXAM DESCRIPTION: Right knee, 2 views CLINICAL HISTORY: FALL WITH PAIN FINDINGS/ IMPRESSION: Right total knee arthroplasty. No periprosthetic fracture or osteolysis No joint effusion or other diagnostic soft tissue abnormality. Intra-articular body posteriorly. Vascular calcifications Electronically signed by: Ulisses Joiner MD 04/01/2018 1:41 PM CDT
--- NOTE | 2018-04-01 13:42 | RAD ---
EXAM DESCRIPTION: Chest,1 View CLINICAL HISTORY: COUGH COMPARISON: November 03, 2017 IMPRESSION: Single AP portable upright view of the chest shows mild enlargement of the cardiac silhouette with left ventricular contour similar to previous exam. No pulmonary vascular congestion. Lungs are hypoaerated. Increased interstitial markings in the perihilar region left greater than right similar to previous exam likely representing chronic interstitial fibrotic changes without acute consolidation. No obvious pleural effusion or pneumothorax is seen. Electronically signed by: Luis Concepcion MD 04/01/2018 1:41 PM CDT
[2018-04-01 15:19] VITALS: BP 99/54; O2SAT 95
== END 2018-04-01 15:38 | disposition short-term general hospital (02) ==
LOC: ER 12:42
DX: N18.6 End stage renal disease (principal); I12.0 Hypertensive chronic kidney disease with stage 5 chronic kidney disease or end stage renal disease; E11.22 Type 2 diabetes mellitus with diabetic chronic kidney disease; E87.6 Hypokalemia; R00.1 Bradycardia, unspecified; E07.9 Disorder of thyroid, unspecified; F03.90 Unspecified dementia, unspecified severity, without behavioral disturbance, psychotic disturbance, mood disturbance, and anxiety; I48.91 Unspecified atrial fibrillation; K21.9 Gastro-esophageal reflux disease without esophagitis; Z99.2 Dependence on renal dialysis; Z79.4 Long term (current) use of insulin; Z79.82 Long term (current) use of aspirin; Z79.899 Other long term (current) drug therapy
CPT/HCPCS: 36415; 71045; 73560; 80053; 83605; 83880; 84484; 85025; 87040; 93005; J7030

== ENCOUNTER → 2018-04-11 | Outpatient (CLI) | payer OTHER ==
--- NOTE | 2018-04-11 13:19 | CT ---
EXAM DESCRIPTION: Lower Extremity CLINICAL HISTORY: LEFT ACL TEAR COMPARISON: X-rays of the right and left knees from April 01, 2018 TECHNIQUE: Extremity CT of the left knee is performed with thin-section axial imaging. MPRs are created and reviewed as well. 3-dimensional reconstructions created on a dedicated workstation were created and are also maintained in the patient's medical record. FINDINGS: Metal artifacts are limiting due to total knee arthroplasty. The visualized portions of the bones show no evidence of fracture or lytic lesion of the distal femur, proximal tibia or proximal fibula. There is arteriosclerotic calcification without aneurysm of the popliteal artery. Muscles and soft tissues are unremarkable. Sagittal reformatted images show complete obscuration of the joint contents due to metal artifact. The patella appears to be normally situated with prominent patellar enthesopathy. Soft tissue calcification in the anterior lower thigh is seen. Above the metal artifact, moderate sized knee joint effusion is present in the suprapatellar region. Axial images confirm the findings. No patellar subluxation. There is mild lateral tilt of the patella. The clinical history suggests ACL tear. Metal artifact completely obscures the structures within the knee joint. 3-D images show total left knee arthroplasty with anatomic alignment and no complicating fracture. No bony destructive lesion or periprosthetic osteolysis. IMPRESSION: Total right knee arthroplasty. Moderate sized knee joint effusion. Negative for fracture or dislocation. This exam was performed according to our departmental dose-optimization program, which includes automated exposure control, adjustment of the mA and/or kV according to patient size and/or use of iterative reconstruction technique. Total DLP equals 178.18 mGycm. Electronically signed by: Valentín Tabares MD 04/11/2018 1:17 PM CDT
== END ==
LOC: CT 10:19
PROVIDERS: ATTEND Internal Medicine Nephrology
DX: S83.512A Sprain of anterior cruciate ligament of left knee, initial encounter (principal); Z96.652 Presence of left artificial knee joint

== ENCOUNTER → 2018-05-09 | Outpatient (CLI) | payer OTHER ==
--- NOTE | 2018-05-09 12:05 | RAD ---
EXAM DESCRIPTION: Knee,Left 2 or More Views CLINICAL HISTORY: 78 years, Female, PAIN IN LEFT KNEE COMPARISON: Previous study April 01, 2018 TECHNIQUE: Three views of the left knee FINDINGS: Total left knee arthroplasty is present. Small metallic densities are seen in the medial metaphysis of the proximal tibia. No periprosthetic osteolysis or complicating fracture. Patella is normally situated. No joint effusion. Soft tissue calcification anterior to the quadriceps tendon is noted. Patella is normally situated. Compared to the previous study, no change is evident. IMPRESSION: Total left knee arthroplasty. Electronically signed by: Valentín Tabares MD 05/09/2018 12:04 PM CDT
--- NOTE | 2018-05-09 12:09 | RAD ---
EXAM DESCRIPTION: Pelvis CLINICAL HISTORY: 78 years Female, PAIN IN LEFT HIP COMPARISON: Previous x-ray pelvis June 26, 2016 FINDINGS: Deformity of the superior and inferior left pubic rami appear stable compared to the previous study, evidently related to old healed fractures. No acute appearing fracture of the bones of the pelvic ring, sacrum or proximal femurs. Degenerative changes are seen in the lower L-spine. Degenerative changes are seen at the SI joints. IMPRESSION: No acute fracture or dislocation. Electronically signed by: Valentín Tabares MD 05/09/2018 12:07 PM CDT
== END ==
LOC: RAD 09:10
PROVIDERS: ATTEND Orthopaedic Surgery
DX: M25.562 Pain in left knee (principal); M25.552 Pain in left hip; Z96.652 Presence of left artificial knee joint

== ENCOUNTER → 2018-07-22 | Day surgery (SDC) | payer OTHER ==
[~2018-07-22] MED LIST: PROPARACAINE 0.5% OPHTH SOL 15 ML BTTL ONE; TROP 1%/CYCLOPEN 1%/PHENYL 2% DROPS ONE
== END ==
LOC: AMB 05:33
PROVIDERS: ATTEND Ophthalmology
DX: H26.491 Other secondary cataract, right eye (principal); Z53.9 Procedure and treatment not carried out, unspecified reason

== ENCOUNTER 2018-08-29 04:37 | Emergency (ER) | payer OTHER ==
[2018-08-29] MEDS ORDERED: MECLIZINE HCL 12.5 MG TAB PO ONE (05:18)
--- NOTE | 2018-08-29 05:33 | ED.PDOC ---
History of Present Illness - General Source: patient, RN notes reviewed, Vital Signs reviewed Exam Limitations: no limitations - History of Present Illness Initial Comments: THIS PATIENT COMES BY AMBULANCE. SHE LIVES AT [facility] AND WAKES UP AND THE SHEETS ARE ON THE FLOOR AND SHE FEELS VERY DIZZY. A BBG WAS NORMAL AT THE PR. SHE NOW VOICES THAT SHE FEELS MUCH BETTER. Timing/Duration: 1 hour Worsening Factors: nothing Associated Symptoms: denies symptoms <Davey Moreira - Last Filed: 08/29/18 06:36> <Jhoan Luu - Last Filed: 08/29/18 10:06> - General Chief Complaint: General Stated Complaint: vertigo, near syncope Time Seen by Provider: 08/29/18 05:18 - History of Present Illness Allergies/Adverse Reactions: Allergies NO KNOWN ALLERGY Allergy (Verified 11/03/17 16:59) Home Medications: Ambulatory Orders Acetaminophen [Tylenol] 650 mg PO Q6H PRN 07/05/16 Amiodarone HCl [Pacerone] 100 mg PO DAILY 07/05/16 Aspirin (Buffered) 325 mg [Bufferin 325 mg] 1 ea PO QD 07/05/16 Bisacodyl 10 mg MI DAILY PRN 07/05/16 Citalopram Hydrobromide [Celexa] 40 mg PO DAILY 07/05/16 Clonidine HCl 0.1 mg PO Q8H PRN 07/05/16 Cyclobenzaprine HCl [Flexeril] 5 mg PO BID 07/05/16 Diphenhydramine HCl 25 mg PO Q4H PRN 07/05/16 Docusate Sodium 100 mg PO BID 07/05/16 Insulin Detemir [Levemir Pen] 55 unit SUBCU BID 07/05/16 Metoprolol Tartrate 25 mg PO Q8HR 07/05/16 Multiple Vitamin [Multi Vitamin Daily] 1 tab PO DAILY 07/05/16 Ondansetron [Ondansetron Odt] 4 mg PO Q4HR PRN 07/05/16 Rivastigmine [Exelon] 13.3 mg TD DAILY 07/05/16 Zolpidem Tartrate 5 mg PO BEDTIME 07/05/16 Cyanocobalamin [Vitamin B12] 1,000 mcg IM MONTHLY 07/06/16 Magnesium Hydroxide [Milk Of Magnesia] 30 ml PO Q8HR PRN 07/06/16 Polyethylene Glycol 3350 [Miralax] 17 gm PO DAILY PRN 07/06/16 Sevelamer Carbonate [Renvela] 1,600 mg PO TIDFD 10/24/16 Acetaminophen W/ Codeine [Tylenol W/ CODEINE #3] 1 ea PO Q4H PRN 09/19/17 Gabapentin 100 mg PO BID 09/19/17 Liraglutide [Victoza] 18 mg SC DAILY 09/19/17 Memantine HCl [Namenda Xr] 28 mg PO DAILY 09/19/17 Dextrose (Diabetic Use) [Glutose 15] 40 % PO PRN PRN 10/02/17 Glucagon HCl (Diagnostic) [Glucagon] 1 mg IJ PRN PRN 10/02/17 HYDROcodone 5MG/APAP 325MG [Chatom 5/325] 1 tab PO Q6H PRN 10/02/17 Insulin Lispro [Humalog] 3 unit SUBCU AC 10/02/17 Oseltamivir Capsule [Tamiflu] 75 mg PO BID 5 Days #10 capsule 11/03/17 Pantoprazole Sodium 40 mg PO DAILY 11/03/17 Ciprofloxacin [Cipro] 250 mg PO DAILY 5 Days #5 tablet 08/29/18 Review of Systems - Review of Systems Constitutional: States: no symptoms reported EENTM: States: no symptoms reported Respiratory: States: no symptoms reported Cardiology: States: no symptoms reported Gastrointestinal/Abdominal: States: no symptoms reported Genitourinary: States: dysuria Musculoskeletal: States: no symptoms reported Skin: States: no symptoms reported Neurological: States: other - VERTIGO Endocrine: States: no symptoms reported <Davey Moreira - Last Filed: 08/29/18 06:36> Past Medical History (General) - Patient Medical History Hx Seizures: No Hx Stroke: No Hx Dementia: Yes Hx Asthma: No Hx of COPD: No Hx Cardiac Disorders: Yes - afib Hx Congestive Heart Failure: No Hx Pacemaker: No Hx Hypertension: Yes Hx Thyroid Disease: Yes Hx Diabetes: Yes Hx Gastroesophageal Reflux: Yes Hx Renal Disease: Yes - dialysis ,ESRD Hx Cancer: Yes - uterine Hx of HIV: No Hx Hepatitis C: No Hx MRSA: No Surgical History: cancer surgery, Hysterectomy, other - Vaccination History Hx Tetanus, Diphtheria Vaccination: No Hx Influenza Vaccination: Yes - 2017 Hx Pneumococcal Vaccination: No - Social History Hx Tobacco Use: No Hx Chewing Tobacco Use: No Hx Alcohol Use: No Hx Substance Use: No Hx Substance Use Treatment: No Hx Depression: No Hx Physical Abuse: No Hx Emotional Abuse: No Hx Suspected Abuse: No - Activities of Daily Living Halfway/Assisted Living (if applicable):: [facility] Gallo - Female History Patient : No <Anali Moreirabrenna De JesusJusten - Last Filed: 08/29/18 06:36> Family Medical History - Family History Mother Family History: Unknown Hx Family Stroke: Yes - several family members Hx Family Diabetes: Yes - several family members <LillieDavey johnson - Last Filed: 08/29/18 06:36> Physical Exam - Physical Exam General Appearance: Alert, No apparent distress, Well Developed, Well Groomed, Well Hydrated, Well Nourished Eye Exam: bilateral normal Ears, Nose, Throat: hearing grossly normal, normal ENT inspection Neck: non-tender, full range of motion, supple, normal inspection Respiratory: chest non-tender, lungs clear, normal breath sounds, no respiratory distress, no accessory muscle use Cardiovascular/Chest: normal peripheral pulses, regular rate, rhythm, no edema, no gallop, no JVD, no murmur Peripheral Pulses: radial,right: 2+, radial,left: 2+ Gastrointestinal/Abdominal: normal bowel sounds, non tender, soft, no organomegaly, no pulsatile mass Back Exam: normal inspection Extremity: normal range of motion, non-tender, normal inspection, no pedal edema , no calf tenderness Neurologic: alert, normal mood/affect, oriented x 3 Skin Exam: normal color, warm/dry <LillieDavey - Last Filed: 08/29/18 06:36> Progress - Progress Progress: 08/29/18 06:15 Laboratory Tests 08/29/18 08/29/18 05:20 05:20 WBC 5.2 RBC 3.52 L Hgb 12.7 Hct 38.8 MCV 110.2 H MCH 36.0 H MCHC 32.7 L RDW 18.4 H Plt Count 112 L MPV 9.2 Absolute Neuts (auto) 2.90 Absolute Lymphs (auto) 1.70 Absolute Monos (auto) 0.50 Absolute Eos (auto) 0.10 Absolute Basos (auto) 0.10 Neutrophils % 55.1 Lymphocytes % 32.4 Monocytes % 9.4 H Eosinophils % 1.9 Basophils % 1.2 Sodium 140 Potassium 4.1 Chloride 96 L Carbon Dioxide 33 H Anion Gap 15.1 BUN 27 H Creatinine 3.09 H BUN/Creatinine Ratio 8.7 L Random Glucose 213 H Serum Osmolality 290.9 Calcium 8.1 L Total Bilirubin 0.6 AST 46 H ALT 32 Alkaline Phosphatase 168 H Serum Total Protein 6.9 Albumin 3.6 Globulin 3.3 Albumin/Globulin Ratio 1.1 - Results/Orders Results/Orders: EKG: HR OF 81, QRS OF 136, QTC OF 529, AXES OF 54 DEGREES. IMPRESSION: PACED RHYTHM, AF, BIFASCICULAR BLOCK THE PATIENT HAS ESRD ON HEMODIALYSIS. WAS DIALYZED YESTERDAY. TILT TEST IS POSITIVE. WILL GIVE 250 CC NS IVP. <Davey Moreira - Last Filed: 08/29/18 06:36> - Progress Progress: 08/29/18 08:57 Vital Signs - 8 hr 08/29/18 08/29/18 08/29/18 04:49 05:50 05:51 Temperature 97.9 F Pulse Rate [ 76 86 103 H left] Respiratory 76 H Rate Blood Pressure 99/72 77/47 94/66 [Right] O2 Sat by Pulse 97 Oximetry 08/29/18 08/29/18 05:52 06:41 Temperature Pulse Rate [ 108 H 89 left] Respiratory 76 H Rate Blood Pressure 137/77 112/71 [Right] O2 Sat by Pulse Oximetry - Results/Orders Results/Orders: [place] better ;able to finished her breakfast meal no N/V ;no longer dizzy 08/29/18 08:37 Catheter:Straight .ONCE 08/29/18 09:10 URINE CULTURE W/COLONY COUNT Stat 08/29/18 09:49 URINE CULTURE W/COLONY COUNT Stat 08/29/18 Breakfast 2000 Calorie ADA Diet Laboratory Results - last 24 hr 08/29/18 08/29/18 08/29/18 05:20 05:20 09:10 WBC 5.2 RBC 3.52 L Hgb 12.7 Hct 38.8 MCV 110.2 H MCH 36.0 H MCHC 32.7 L RDW 18.4 H Plt Count 112 L MPV 9.2 Absolute Neuts (auto) 2.90 Absolute Lymphs (auto) 1.70 Absolute Monos (auto) 0.50 Absolute Eos (auto) 0.10 Absolute Basos (auto) 0.10 Neutrophils % 55.1 Lymphocytes % 32.4 Monocytes % 9.4 H Eosinophils % 1.9 Basophils % 1.2 Sodium 140 Potassium 4.1 Chloride 96 L Carbon Dioxide 33 H Anion Gap 15.1 BUN 27 H Creatinine 3.09 H BUN/Creatinine Ratio 8.7 L Random Glucose 213 H Serum Osmolality 290.9 Calcium 8.1 L Total Bilirubin 0.6 AST 46 H ALT 32 Alkaline Phosphatase 168 H Serum Total Protein 6.9 Albumin 3.6 Globulin 3.3 Albumin/Globulin Ratio 1.1 Urine Color Yellow Urine Appearance Cloudy Urine pH 8.5 H Ur Specific [place] 1.015 Urine Protein 100 H Urine Glucose (UA) Negative Urine Ketones 15 H Urine Blood Negative Urine Nitrite Negative Urine Bilirubin Moderate Urine Urobilinogen 0.2 Ur Leukocyte Esterase Small H Urine RBC 1-3 Urine WBC 5-10 H Ur Epithelial Cells 0-1 Amorphous Sediment Trace Urine Bacteria 4+ H - EKG/XRAY/CT XRAY: chest - no acute findings <Jhoan Luu - Last Filed: 08/29/18 10:06> Departure <Davey Moreria - Last Filed: 08/29/18 06:36> - Departure Time of Disposition: 10:04 <Jhoan Luu - Last Filed: 08/29/18 10:06> - Departure Clinical Impression: Dizziness, ESRD (end stage renal disease) on dialysis Urinary tract infection Qualifiers: Urinary tract infection type: site unspecified Hematuria presence: without hematuria Qualified Code(s): N39.0 - Urinary tract infection, site not specified Disposition: Discharge to Home or Self Care Condition: Fair Departure Forms: ED Discharge - Pt. Copy, Patient Portal Self Enrollment Instructions: Dizziness, Nonvertigo, (DC) Referrals: Darrel Marroquin III, MD [Primary Care Provider] - 1-2 Weeks Prescriptions: Ciprofloxacin [Cipro] 250 mg PO DAILY 5 Days #5 tablet Home Medications: Ambulatory Orders Acetaminophen [Tylenol] 650 mg PO Q6H PRN 07/05/16 Amiodarone HCl [Pacerone] 100 mg PO DAILY 07/05/16 Aspirin (Buffered) 325 mg [Bufferin 325 mg] 1 ea PO QD 07/05/16 Bisacodyl 10 mg MI DAILY PRN 07/05/16 Citalopram Hydrobromide [Celexa] 40 mg PO DAILY 07/05/16 Clonidine HCl 0.1 mg PO Q8H PRN 07/05/16 Cyclobenzaprine HCl [Flexeril] 5 mg PO BID 07/05/16 Diphenhydramine HCl 25 mg PO Q4H PRN 07/05/16 Docusate Sodium 100 mg PO BID 07/05/16 Insulin Detemir [Levemir Pen] 55 unit SUBCU BID 07/05/16 Metoprolol Tartrate 25 mg PO Q8HR 07/05/16 Multiple Vitamin [Multi Vitamin Daily] 1 tab PO DAILY 07/05/16 Ondansetron [Ondansetron Odt] 4 mg PO Q4HR PRN 07/05/16 Rivastigmine [Exelon] 13.3 mg TD DAILY 07/05/16 Zolpidem Tartrate 5 mg PO BEDTIME 07/05/16 Cyanocobalamin [Vitamin B12] 1,000 mcg IM MONTHLY 07/06/16 Magnesium Hydroxide [Milk Of Magnesia] 30 ml PO Q8HR PRN 07/06/16 Polyethylene Glycol 3350 [Miralax] 17 gm PO DAILY PRN 07/06/16 Sevelamer Carbonate [Renvela] 1,600 mg PO TIDFD 10/24/16 Acetaminophen W/ Codeine [Tylenol W/ CODEINE #3] 1 ea PO Q4H PRN 09/19/17 Gabapentin 100 mg PO BID 09/19/17 Liraglutide [Victoza] 18 mg SC DAILY 09/19/17 Memantine HCl [Namenda Xr] 28 mg PO DAILY 09/19/17 Dextrose (Diabetic Use) [Glutose 15] 40 % PO PRN PRN 10/02/17 Glucagon HCl (Diagnostic) [Glucagon] 1 mg IJ PRN PRN 10/02/17 HYDROcodone 5MG/APAP 325MG [Chatom 5/325] 1 tab PO Q6H PRN 10/02/17 Insulin Lispro [Humalog] 3 unit SUBCU AC 10/02/17 Oseltamivir Capsule [Tamiflu] 75 mg PO BID 5 Days #10 capsule 11/03/17 Pantoprazole Sodium 40 mg PO DAILY 11/03/17 Ciprofloxacin [Cipro] 250 mg PO DAILY 5 Days #5 tablet 08/29/18 Additional Instructions: Return to ER as needed;Continue with all home medications
[2018-08-29] MEDS ORDERED: SODIUM CHLORIDE 0.9% 250ML 250 ML IVS ONE (06:11)
[2018-08-29] MEDS ORDERED: SODIUM CHLORIDE 0.9% 250ML 250 ML ONE (06:11)
--- NOTE | 2018-08-29 06:25 | RAD ---
EXAM DESCRIPTION: Chest,1 View CLINICAL HISTORY:78 years Female, SOB Comparison: April 01, 2018 FINDINGS: No focal lung consolidation. Unchanged elevation of the right hemidiaphragm. Right-sided cardiac pacemaker device with lead tips projecting over the right atrium and right ventricle. No pleural effusion. No pneumothorax. Cardiac and mediastinal silhouette is unremarkable. No acute osseous abnormality. Soft tissues are unremarkable. IMPRESSION: No acute findings. No focal lung consolidation. Unchanged elevation of the right hemidiaphragm. New right-sided cardiac pacemaker device. Electronically signed by: Rudi Franz MD 08/29/2018 6:24 AM [facility]
[2018-08-29] MEDS ORDERED: PROMETHAZINE HCL INJ 25 MG/ML VIAL IM ONE (08:14)
[2018-08-29] MEDS ORDERED: DEXAMETHASONE INJ 4 MG/ML VIAL IV ONE (08:14)
[2018-08-29 10:28] VITALS: O2SAT 98
[2018-08-29 10:29] VITALS: BP 148/63; TEMP 97.1
== END 2018-08-29 10:25 ==
LOC: ER 04:37
DX: N39.0 Urinary tract infection, site not specified (principal); R42 Dizziness and giddiness; N18.6 End stage renal disease; I12.0 Hypertensive chronic kidney disease with stage 5 chronic kidney disease or end stage renal disease; E11.22 Type 2 diabetes mellitus with diabetic chronic kidney disease; F03.90 Unspecified dementia, unspecified severity, without behavioral disturbance, psychotic disturbance, mood disturbance, and anxiety; I48.91 Unspecified atrial fibrillation; E07.9 Disorder of thyroid, unspecified; K21.9 Gastro-esophageal reflux disease without esophagitis; Z99.2 Dependence on renal dialysis; Z85.42 Personal history of malignant neoplasm of other parts of uterus; Z79.4 Long term (current) use of insulin; Z79.899 Other long term (current) drug therapy
CPT/HCPCS: 36415; 71045; 80053; 81001; 85025; 87077; 87086; 87186; 93005; J1100; J2550; J7050

== ENCOUNTER 2018-09-02 05:32 | Day surgery (SDC) | payer OTHER ==
[2018-09-02] MEDS ORDERED: TROP 1%/CYCLOPEN 1%/PHENYL 2% DROPS OPHTH ONE (05:33)
[2018-09-02] MEDS ORDERED: PROPARACAINE 0.5% OPHTH SOL 15 ML BTTL RIGHT_EYE ONE (16:27)
== END 2018-09-02 16:45 | disposition home or self-care (01) ==
LOC: AMB 05:32
PROVIDERS: ATTEND Ophthalmology
DX: H26.491 Other secondary cataract, right eye (principal); E11.36 Type 2 diabetes mellitus with diabetic cataract; I48.91 Unspecified atrial fibrillation

== ENCOUNTER 2018-09-07 08:28 | Observation (INO) | payer OTHER ==
[2018-09-07] MEDS ORDERED: IBUPROFEN 200 MG TAB PO ONE (08:44)
[2018-09-07] MEDS ORDERED: ACETAMINOPHEN 325 MG TAB PO ONE (08:44)
--- NOTE | 2018-09-07 09:18 | RAD ---
EXAM DESCRIPTION: Chest,2 Views CLINICAL HISTORY: 78 years Female, cough, fever, mild delirium COMPARISON: August 29, 2018. TECHNIQUE: PA and lateral radiographs of the chest were obtained. FINDINGS: Trachea is midline.The cardiomediastinal silhouette is normal in size. The pulmonary vasculature is within normal limits. Right basilar atelectasis and/or pneumonia with elevation of the right hemidiaphragm..No evidence of pleural effusions.No evidence of pneumothorax. IMPRESSION: Right basilar atelectasis and/or pneumonia with elevation of the right hemidiaphragm.. Electronically signed by: Chintan Thakkar MD 09/07/2018 9:16 AM [facility]
[2018-09-07] MEDS ORDERED: cefTRIAXone SODIUM 1 GM in SODIUM CHL 0.9% 50ML MIN-BAG+ 50 ML IVPB ONE (09:24)
[2018-09-07] MEDS ORDERED: cefTRIAXone SODIUM 1 GM VIAL ONE (09:25)
[2018-09-07] MEDS ORDERED: SODIUM CHL 0.9% 50ML MIN-BAG+ 50 ML IVPB ONE (09:25)
[2018-09-07] MEDS ORDERED: AZITHROMYCIN IV 500 MG in SODIUM CHLORIDE 0.9% 250ML 250 ML IVPB ONE (09:36)
[2018-09-07] MEDS ORDERED: SODIUM CHLORIDE 0.9% 250ML 250 ML ONE (09:42)
[2018-09-07] MEDS ORDERED: AZITHROMYCIN IV 500 MG VIAL IVPB ONE (09:42)
[2018-09-07] MEDS ORDERED: CIPROFLOXACIN 500 MG TAB PO ONE (10:07)
--- NOTE | 2018-09-07 10:11 | ED.PDOC ---
History of Present Illness - General Chief Complaint: Fever Stated Complaint: Confusion, elevated temperature Time Seen by Provider: 09/07/18 08:31 Source: patient Exam Limitations: no limitations - History of Present Illness Initial Comments: the patient is a 78-year-old female presenting to the emergency room secondary to mild confusion this morning and a cough. She is not hypoxic and vital signs are stable. She woke up confused this morning thinking this morning was last night. She is right now. No confusion at this time. She is pleasant and cooperative and in no real distress. She does however have some increased weakness from her baseline and does require some assistance getting up. She does have a cough that is fairly frequent and minimally productive. She reports that this started last night. She is febrile currently.the patient is a dialysis patient and did have her dialysis yesterday. She does also still make urine. Timing/Duration: 4-6 hours Severity: mild Improving Factors: nothing Worsening Factors: nothing Associated Symptoms: cough Allergies/Adverse Reactions: Allergies NO KNOWN ALLERGY Allergy (Verified 11/03/17 16:59) Home Medications: Ambulatory Orders Acetaminophen [Tylenol] 650 mg PO Q6H PRN 07/05/16 Citalopram Hydrobromide [Celexa] 20 mg PO DAILY 07/05/16 Clonidine HCl 0.1 mg PO Q8H PRN 07/05/16 Cyclobenzaprine HCl [Flexeril] 5 mg PO BID 07/05/16 Diphenhydramine HCl 25 mg PO Q4H PRN 07/05/16 Docusate Sodium 100 mg PO BID 07/05/16 Insulin Detemir [Levemir Pen] 55 unit SUBCU BID 07/05/16 Multiple Vitamin [Multi Vitamin Daily] 1 tab PO DAILY 07/05/16 Ondansetron [Ondansetron Odt] 4 mg PO Q4HR PRN 07/05/16 Zolpidem Tartrate 5 mg PO BEDTIME 07/05/16 Cyanocobalamin [Vitamin B12] 1,000 mcg IM MONTHLY 07/06/16 Polyethylene Glycol 3350 [Miralax] 17 gm PO DAILY PRN 07/06/16 Sevelamer Carbonate [Renvela] 1,600 mg PO TIDFD 10/24/16 Gabapentin 100 mg PO BID 09/19/17 Liraglutide [Victoza] 18 mg SC DAILY 09/19/17 Memantine HCl [Namenda Xr] 28 mg PO DAILY 09/19/17 Dextrose (Diabetic Use) [Glutose 15] 40 % PO PRN PRN 10/02/17 Glucagon HCl (Diagnostic) [Glucagon] 1 mg IJ PRN PRN 10/02/17 HYDROcodone 5MG/APAP 325MG [Baird 5/325] 1 tab PO Q6H PRN 10/02/17 Insulin Lispro [Humalog] 3 unit SUBCU AC 10/02/17 Pantoprazole Sodium 40 mg PO DAILY 11/03/17 Apixaban [Eliquis] 5 mg PO BID 09/07/18 Atorvastatin Calcium [Lipitor] 10 mg PO BEDTIME 09/07/18 Donepezil Hydrochloride [Donepezil HCl] 23 mg PO BEDTIME 09/07/18 Doxepin HCl [Doxepin HCl] 50 mg PO BEDTIME 09/07/18 Pregabalin [Lyrica] 100 mg PO BEDTIME 09/07/18 Review of Systems - Review of Systems Constitutional: States: fever, malaise, weakness EENTM: States: no symptoms reported Respiratory: States: cough Cardiology: States: no symptoms reported Gastrointestinal/Abdominal: States: no symptoms reported Genitourinary: States: no symptoms reported Musculoskeletal: States: no symptoms reported Skin: States: no symptoms reported Neurological: States: no symptoms reported, other - mild confusion Endocrine: States: no symptoms reported All other Systems: No Change from Baseline Past Medical History (General) - Patient Medical History Hx Seizures: No Hx Stroke: No Hx Dementia: Yes Hx Asthma: No Hx of COPD: No Hx Cardiac Disorders: Yes - afib Hx Congestive Heart Failure: No Hx Pacemaker: No Hx Hypertension: Yes Hx Thyroid Disease: Yes - Hypo Hx Diabetes: No Hx Gastroesophageal Reflux: Yes Hx Renal Disease: Yes - ESRD; MWF dialysis Hx Cancer: Yes - uterine Hx of HIV: No Hx Hepatitis C: No Hx MRSA: No - Vaccination History Hx Tetanus, Diphtheria Vaccination: No Hx Influenza Vaccination: Yes - 06/19/18 Hx Pneumococcal Vaccination: - unknown - Social History Hx Tobacco Use: No Hx Chewing Tobacco Use: No Hx Alcohol Use: No Hx Substance Use: No Hx Substance Use Treatment: No Hx Depression: No Hx Physical Abuse: No Hx Emotional Abuse: No Hx Suspected Abuse: No - Activities of Daily Living Alf/Assisted Living (if applicable):: David Gallo - Female History Patient : No Family Medical History - Family History Mother Family History: Unknown Hx Family Stroke: Yes - several family members Hx Family Diabetes: Yes - several family members Physical Exam - Physical Exam General Appearance: Alert, Comfortable, No apparent distress Eye Exam: bilateral normal Ears, Nose, Throat: hearing grossly normal, normal pharynx, nasal congestion Neck: full range of motion, supple Respiratory: chest non-tender, no respiratory distress, no accessory muscle use , other - mild right basilar rales. Cardiovascular/Chest: normal peripheral pulses, no edema, other - regular rate Peripheral Pulses: radial,right: 2+, radial,left: 2+, dorsalis pedis,right: 2+, dorsalis pedis,left: 2+ Gastrointestinal/Abdominal: non tender - obese, soft Rectal Exam: deferred Back Exam: normal inspection, no CVA tenderness Extremity: normal range of motion, non-tender, normal inspection, no pedal edema , normal capillary refill Neurologic: compensation analyst II-XII nml as tested, alert, normal mood/affect, oriented x 3 Skin Exam: normal color Comments: Vital Signs - 24 hr 09/07/18 09/07/18 08:39 09:34 Temperature 102.4 F H Pulse Rate [ 86 77 Left Radial] Respiratory 20 20 Rate Blood Pressure 106/47 112/47 [Right Arm] O2 Sat by Pulse 94 L 93 L Oximetry Progress - Progress Progress: 09/07/18 10:14 the patient's a 78-year-old female with numerous significant long- term medical problems presenting with what appears to be a very mild right lower lobe pneumonia. She is not hypoxic but did have some delirium this morning and does have some increased weakness and is having some difficulty performing her ADLs because of that. Due to the fact that she is high risk and that this is a detention acquired pneumonia she is going to be placed in observation overnight to start antibiotic therapy and make sure that she improves rather than deteriorates. She is being started on Rocephin, azithromycin and ciprofloxacin. No additional IV fluids have been given. Monitor for any return of the delirium. Assist patient when she gets out of bed to prevent falls as she does have some increased generalized weakness. Encourage oral intake. Blood cultures have been performed. She will still need to have a sputum culture performed. - Results/Orders Results/Orders: chest x-ray shows mild right lower lobe infiltrate. pcr flu is negative. Laboratory Results - last 24 hr 09/07/18 09/07/18 09/07/18 09:13 09:13 09:14 WBC 16.6 H RBC 3.26 L Hgb 11.8 L Hct 35.3 L MCV 108.5 H MCH 36.1 H MCHC 33.3 RDW 17.4 H Plt Count 143 MPV 9.8 Absolute Neuts (auto) 13.50 H Absolute Lymphs (auto) 1.60 Absolute Monos (auto) 1.30 H Absolute Eos (auto) 0.00 Absolute Basos (auto) 0.20 H Neutrophils % 81.1 H Lymphocytes % 9.8 L Monocytes % 7.7 Eosinophils % 0.0 L Basophils % 1.4 Normal RBC Morphology Plts mac adequate Sodium 141 Potassium 4.5 Chloride 97 L Carbon Dioxide 30 Anion Gap 18.5 H BUN 23 H Creatinine 3.76 H BUN/Creatinine Ratio 6.1 L Random Glucose 259 H Serum Osmolality 293.9 Calcium 8.4 Total Bilirubin 1.2 H AST 40 ALT 32 Alkaline Phosphatase 154 H Serum Total Protein 7.7 Albumin 3.7 Globulin 4.0 H Albumin/Globulin Ratio 0.9 L Urine Color Yellow Urine Appearance Cloudy Urine pH >= 9.0 H* Ur Specific [place] 1.015 Urine Protein 100 H Urine Glucose (UA) Negative Urine Ketones Trace Urine Blood Small H Urine Nitrite Negative Urine Bilirubin Small H Urine Urobilinogen 0.2 Ur Leukocyte Esterase Negative Urine RBC 0-1 Urine WBC 0 Ur Epithelial Cells 5-10 Urine Bacteria 1+ Departure - Departure Clinical Impression: correction-acquired pneumonia Disposition: Admit Patient Condition: Fair Departure Forms: ED Discharge - Pt. Copy, Patient Portal Self Enrollment Referrals: Darrel Marroquin III, MD [Primary Care Provider] - 1-2 Weeks Home Medications: Ambulatory Orders Acetaminophen [Tylenol] 650 mg PO Q6H PRN 07/05/16 Citalopram Hydrobromide [Celexa] 20 mg PO DAILY 07/05/16 Clonidine HCl 0.1 mg PO Q8H PRN 07/05/16 Cyclobenzaprine HCl [Flexeril] 5 mg PO BID 07/05/16 Diphenhydramine HCl 25 mg PO Q4H PRN 07/05/16 Docusate Sodium 100 mg PO BID 07/05/16 Insulin Detemir [Levemir Pen] 55 unit SUBCU BID 07/05/16 Multiple Vitamin [Multi Vitamin Daily] 1 tab PO DAILY 07/05/16 Ondansetron [Ondansetron Odt] 4 mg PO Q4HR PRN 07/05/16 Zolpidem Tartrate 5 mg PO BEDTIME 07/05/16 Cyanocobalamin [Vitamin B12] 1,000 mcg IM MONTHLY 07/06/16 Polyethylene Glycol 3350 [Miralax] 17 gm PO DAILY PRN 07/06/16 Sevelamer Carbonate [Renvela] 1,600 mg PO TIDFD 10/24/16 Gabapentin 100 mg PO BID 09/19/17 Liraglutide [Victoza] 18 mg SC DAILY 09/19/17 Memantine HCl [Namenda Xr] 28 mg PO DAILY 09/19/17 Dextrose (Diabetic Use) [Glutose 15] 40 % PO PRN PRN 10/02/17 Glucagon HCl (Diagnostic) [Glucagon] 1 mg IJ PRN PRN 10/02/17 HYDROcodone 5MG/APAP 325MG [Baird 5/325] 1 tab PO Q6H PRN 10/02/17 Insulin Lispro [Humalog] 3 unit SUBCU AC 10/02/17 Pantoprazole Sodium 40 mg PO DAILY 11/03/17 Apixaban [Eliquis] 5 mg PO BID 09/07/18 Atorvastatin Calcium [Lipitor] 10 mg PO BEDTIME 09/07/18 Donepezil Hydrochloride [Donepezil HCl] 23 mg PO BEDTIME 09/07/18 Doxepin HCl [Doxepin HCl] 50 mg PO BEDTIME 09/07/18 Pregabalin [Lyrica] 100 mg PO BEDTIME 09/07/18 Decision To Admit - Decistion To Admit Decision to Admit Reason: Medical Nature Decision to Admit Date: 09/07/18 Decision to Admit Time: 10:17
--- NOTE | 2018-09-07 11:58 | HP ---
SUPERVISING PHYSICIAN: Ulisses Vincent M.D. CHIEF COMPLAINT: Confusion with temperature. HISTORY OF PRESENT ILLNESS: Ms. Ortega is a 78 year-old female patient that presented to the Emergency Room this morning from the shelter at [facility] after she was having some mild confusion and had developed a cough. She was not hypoxic and vital signs were showing to be stable, but this morning she woke up confused thinking that the morning was last night. She does have a history of end stage renal disease on dialysis and had dialysis yesterday. On admission to the Emergency Room, the patient was no longer showing confusion, very pleasant and in no real distress. She has been having some generalized weakness at baseline and does require assistance when getting up and only utilizes her wheelchair. She notes that he cough is fairly frequent but very nonproductive and she noted it started last night. Vital signs on admission to the Emergency Room showed that she had a fever of 102.4 with pulse 86, blood pressure 106/47. She is satting 94% on room air with respirations 20. Initial laboratory studies showed she had 16,600 white count with a left shift but no bands. Chemistries showed BUN 23, creatinine 3.76 with potassium 4.5. Urinalysis showed a small amount of blood, small amount of bilirubin, greater than 9 pH, 100 protein. Microscopic showed to be within normal limits. Blood cultures were completed. Flu swab was completed which was showing to be negative for A and B Influenza by PCR. She had a chest x-ray completed which showed a right lower infiltrate suggestive of possible pneumonia. She was initiated on antibiotic therapy with Rocephin and azithromycin in the E. R. and now is going to be placed in observation overnight for close monitoring with anticipation of hopefully being able to discharge later tomorrow to continue with dialysis on Sunday. She was admitted in stable condition. PAST MEDICAL HISTORY: 1. End stage renal disease on dialysis Sunday, Sunday and Sunday. 2. Diabetes mellitus type 2. 3. Hypertension. 4. Polymyalgia rheumatica. 5. Chronic obesity. 6. Osteoarthritis. 7. Gastroesophageal reflux disease. PAST SURGICAL HISTORY: 1. Total hysterectomy. 2. Bilateral knee replacements. 3. Right facial cheek tumor removed in 1947. 4. Benign left breast tumor removed in 1948. 5. Larynx cyst removed in 1985. 6. Placement of hemodialysis port. OUTPATIENT MEDICATIONS: Awaiting update and verification of medications from the shelter in the electronic medical records. ALLERGIES: ACTOS, ALTACE, CODEINE AND DOXYCYCLINE. FAMILY HISTORY: Father at 82 from lung cancer. He also had Alzheimer' s and melanoma as well as he was a smoker. Mother at age 80 due to cerebrovascular accident. She also had lung cancer and was a smoker. She has 1 sister who has arthritis. Maternal grandmother had breast cancer and type 2 diabetes mellitus. She has 1 son who is healthy. SOCIAL HISTORY: She is retired. Resides at [facility]. She has 1 son who is healthy. She denies every using alcohol or illicit drugs or tobacco. REVIEW OF SYSTEMS: CONSTITUTIONAL: Noted positive for fever, general malaise, fatigue and weakness. HEENT: Negative for any sinus symptoms, ear pain, vision changes, sore throat. RESPIRATORY: Cough, nonproductive but no wheezing or shortness of breath. CARDIOVASCULAR: Negative for any chest pains, palpitations or tachycardia. GASTROINTESTINAL: Negative for nausea, vomiting, diarrhea, constipation or abdominal pain. GENITOURINARY: She does have a history of end stage renal disease on dialysis Sunday, Sunday and Sunday. Continues to have production of urine. Denies any dysuria, hematuria or polyuria. MUSCULOSKELETAL: Negative for arthralgias. Positive for myalgias and generalized weakness. NEUROLOGIC: Negative for headaches, dizziness or seizures. Positive for mild confusion resolved prior to admission to the E. . PHYSICAL EXAMINATION: VITAL SIGNS: Temperature on admission was 102.4, pulse 86, blood pressure 106/ 47, respirations 20, satting 94% on room air. Admission weight was 100.7 kg. GENERAL: The patient appeared to be in no acute distress. Alert, well hydrated. Well nourished. HEENT: Tympanic membranes are clear bilaterally. Oropharynx was pink with dry mucosal membranes. Normal pharynx. NECK: Full range of motion, supple, non-tender. No jugular venous distention. CHEST: Lung sounds right side had very faint rales and was more diminished compared to the left. No wheezing or rhonchi. CARDIOVASCULAR: Regular rate and rhythm without any appreciable murmurs, gallops, or rubs. ABDOMEN: Obese but soft, non-tender. Positive bowel sounds. EXTREMITIES: Bilateral pedal pulses were 2+. No edema, cyanosis or clubbing. BACK: Atraumatic with no CVA tenderness. NEUROLOGIC: Cranial nerves II-XII are grossly intact. Facial features were symmetrical. Extraocular movements are within normal limits. No notable nystagmus. She is alert and oriented times three with normal mood and affect. No obvious motor or sensory deficits. SKIN: Warm and dry, pink. LABORATORY: White count showed to be 16,600 with hemoglobin 11.8, hematocrit 35.3, platelet count 143,000. Differential showed a left shift but no bands. RBC indices indicated a macrocytic/hyperchromic presentation. Chemistries showed normal electrolytes with potassium 4.5, BUN 23, creatinine 3.76, glucose 259, calcium 8.4. Bilirubin 1.2. Liver functions all showed to be within normal limits for AST and ALT. Alkaline phosphatase was elevated at 154. Urinalysis showed a pH of greater than 9 with specific gravity of 1.015 with protein 100, negative glucose, trace of ketones, small amount of blood, negative nitrites, small amount of bilirubin, negative leukocyte esterase. Microscopic showed to be within normal limits. MICROBIOLOGY: Sputum culture is pending. Blood culture is pending. Influenza A and B by PCR was negative. RADIOLOGY: Portable chest x-ray on admission to the E. R. per radiology interpretation showed right basilar atelectasis and/or pneumonia with elevation of the right hemidiaphragm. ASSESSMENT: 1. Right lower lobe pneumonia with a systemic inflammatory response syndrome with a fever on admission of 102 and radiographic evidence of right lower lobe infiltrate. 2. Leukocytosis probably due to #1. 3. End stage renal disease on hemodialysis Sunday, Sunday and Sunday. 4. Diabetes mellitus type 2. 5. Hypertension. 6. Polymyalgia rheumatica. 7. Gastroesophageal reflux disease. PLAN: The patient is going to be placed in observation today and started on antibiotics continued from the E. R. to include Rocephin and azithromycin. Will hold off on fluids given that she has end stage renal disease and just had dialysis yesterday. She will be on DVT prophylaxis as per protocol renal dose adjusted. She will be on sliding scale insulin protocol. Will start her on aggressive pulmonary hygiene. Will anticipate her length of stay to be 1 to 2 days with anticipation of discharging later tomorrow so that she can go to dialysis on Sunday. Should she show any decline, will call Dr. Bello, her paper bag maker, and look at possibly arranging transfer as needed. If not, the patient will be discharged later tomorrow and continue dialysis as scheduled on Sunday. Until she transitions to outpatient management, will continue to monitor and treat as needed. #[id number] MTDD
[2018-09-07] MEDS ORDERED: ALBUTEROL SULFATE 2.5 MG/3 ML VIAL NEB PRN (12:02)
[2018-09-07] MEDS ORDERED: SODIUM CHLORIDE 0.9% (FLUSH) 10 ML SYG IV PRN (12:02)
[2018-09-07] MEDS ORDERED: ACETAMINOPHEN 325 MG TAB PO PRN (12:02)
[2018-09-07] MEDS ORDERED: GLUCAGON INJ 1 MG VIAL SUBCU PRN (12:02)
[2018-09-07] MEDS ORDERED: DEXTROSE 50% 25 GM/50 ML SYG IV PRN (12:02)
[2018-09-07] MEDS ORDERED: IV SET AND CAP CHANGE INJ INJ SCH (12:30)
[2018-09-07] MEDS: IPRATROPIUM/ALBUTEROL 3 ML VIAL NEB SCH ×2 (16:30→19:58)
[2018-09-07] MEDS: INSULIN LISPRO 100 UNITS/ML PEN SUBCU SCH ×2 (16:44→20:49)
[2018-09-07] MEDS: SEVELAMER CARBONATE 1600 MG PO SCH (17:54)
[2018-09-07] MEDS ORDERED: DOXEPIN HCL 25 MG CAP ONE (19:15)
[2018-09-07] MEDS ORDERED: APIXABAN 2.5 MG TAB PO ONE (19:15)
[2018-09-07] MEDS ORDERED: FLUTICASONE PROP 0.05% NASAL 16 GM BTTL ONE (19:15)
[2018-09-07] MEDS: DOCUSATE SODIUM 100 MG CAP PO SCH (20:46)
[2018-09-07] MEDS: CYCLOBENZAPRINE HCL 5 MG TAB PO SCH (20:48)
[2018-09-07] MEDS: GABAPENTIN 100 MG CAP PO SCH (20:48)
[2018-09-07] MEDS: INSULIN DETEMIR 100 UNITS/ML PEN SUBCU SCH (20:50)
[2018-09-07] MEDS ORDERED: ATORVASTATIN 10 MG TAB PO SCH (21:00)
[2018-09-07] MEDS ORDERED: NON-FORMULARY MEDICATION 1 EA MIS (Donepezil Hydrochloride [Donepezil Hcl] 23 MG) PO SCH (21:00)
[2018-09-07] MEDS ORDERED: NON-FORMULARY MEDICATION 1 EA MIS (Doxepin Hcl [Doxepin Hcl] 50 MG) PO SCH (21:00)
[2018-09-07] MEDS ORDERED: PREGABALIN 100 MG CAP PO SCH (21:00)
[2018-09-07] MEDS ORDERED: NON-FORMULARY MEDICATION 1 EA MIS (Fluticasone Prop 0.05% Nasal [Flonase Nasal Spray] 50 M SCH (21:00)
[2018-09-07] MEDS ORDERED: ZOLPIDEM TARTRATE 5 MG TAB PO SCH (21:00)
[2018-09-07] MEDS ORDERED: NON-FORMULARY MEDICATION 1 EA MIS (Apixaban [Eliquis] 5 MG) PO SCH (21:00)
--- NOTE | 2018-09-08 06:40 | RAD ---
EXAM: Single view chest. INDICATION: Pneumonia. COMPARISON: Chest x-ray: 09/07/2018. FINDINGS: There are diffuse interstitial opacities, similar to the prior. There is stable elevation the right hemidiaphragm. The heart size is stable with a right chest wall pacemaker in place. There is no pneumothorax or pleural effusion. A left upper extremity vascular stent is noted. IMPRESSION: Grossly stable diffuse interstitial opacities, which may represent chronic changes, edema, and/or pneumonia. Electronically signed by: Jersey Shields MD 09/08/2018 6:39 AM [facility] Workstation: [id number]
[2018-09-08] MEDS: INSULIN LISPRO 100 UNITS/ML PEN SUBCU SCH ×2 (07:58→11:33)
[2018-09-08] MEDS: SEVELAMER CARBONATE 1600 MG PO SCH ×2 (07:59→12:50)
[2018-09-08] MEDS ORDERED: SODIUM CHL 0.9% 50ML MIN-BAG+ 50 ML IVPB ONE (08:10)
[2018-09-08] MEDS ORDERED: cefTRIAXone SODIUM 1 GM VIAL ONE (08:11)
[2018-09-08] MEDS: CYCLOBENZAPRINE HCL 5 MG TAB PO SCH (08:22)
[2018-09-08] MEDS: IPRATROPIUM/ALBUTEROL 3 ML VIAL NEB SCH ×2 (08:22→11:35)
[2018-09-08] MEDS: DOCUSATE SODIUM 100 MG CAP PO SCH (08:22)
[2018-09-08] MEDS: GABAPENTIN 100 MG CAP PO SCH (08:22)
[2018-09-08] MEDS: INSULIN DETEMIR 100 UNITS/ML PEN SUBCU SCH (08:24)
[2018-09-08] MEDS ORDERED: NON-FORMULARY MEDICATION 1 EA MIS (Memantine Hcl [Namenda Xr] 28 MG) PO SCH (09:00)
[2018-09-08] MEDS ORDERED: APIXABAN 2.5 MG TAB PO SCH (09:00)
[2018-09-08] MEDS ORDERED: CITALOPRAM HBR 20 MG TAB PO SCH (09:00)
[2018-09-08] MEDS ORDERED: cefTRIAXone SODIUM 1 GM in SODIUM CHL 0.9% 50ML MIN-BAG+ 50 ML IVPB SCH (09:00)
[2018-09-08] MEDS ORDERED: PANTOPRAZOLE SODIUM TAB 40 MG PO SCH (09:00)
[2018-09-08] MEDS ORDERED: AZITHROMYCIN 250 MG TAB PO SCH (09:00)
[2018-09-08] MEDS ORDERED: NON-FORMULARY MEDICATION 1 EA MIS (Liraglutide [Victoza] 18 MG) SC SCH (09:00)
[2018-09-08 11:39] VITALS: O2SAT 94
[2018-09-08 11:40] VITALS: BP 119/75; TEMP 97.9
[2018-09-08] MEDS ORDERED: INSULIN LISPRO 100 UNITS/ML PEN SUBCU ONE (12:07)
[2018-09-08] MEDS ORDERED: levoFLOXacin 500 MG TAB PO ONE (12:39)
[2018-09-08] MEDS ORDERED: DOXEPIN HCL 25 MG CAP PO SCH (21:00)
[2018-09-08] MEDS ORDERED: FLUTICASONE PROP 0.05% NASAL 16 GM BTTL BNAS SCH (21:00)
--- NOTE | 2018-09-10 11:22 | DS ---
SUPERVISING PHYSICIAN: Ulisses Vincent MD ADMISSION DIAGNOSIS: 1. Right lower lobe pneumonia with a systemic inflammatory response syndrome with a fever on admission of 102 and radiographic evidence of right lower lobe infiltrate. 2. Leukocytosis probably due to #1. 3. Endstage renal disease on hemodialysis Sunday, Sunday and Sunday. 4. Diabetes mellitus type 2. 5. Hypertension. 6. Polymyalgia rheumatica. 7. Gastroesophageal reflux disease. DISCHARGE DIAGNOSIS: 1. Right lower lobe pneumonia with a systemic inflammatory response syndrome with a fever showing improvement with initiation of parenteral antibiotics and transitioned to p.o. medication. 2. Leukocytosis, resolving, secondary to #1. 3. Endstage renal disease on hemodialysis Sunday, Sunday and Sunday. 4. Diabetes mellitus type 2. 5. Hypertension, stable. 6. Polymyalgia rheumatica. 7. Gastroesophageal reflux disease, stable. REASON FOR HOSPITALIZATION: Ms. Ortega is a 78-year-old female patient that presented to the Emergency Room this morning from the penitentiary [facility] after she was having some mild confusion and had developed a cough. She was not hypoxic and vital signs were showing to be stable, but this morning she woke up confused thinking that the morning was last night. She does have a history of end stage renal disease on dialysis and had dialysis yesterday. On admission to the Emergency Room, the patient was no longer showing confusion, very pleasant and in no real distress. She has been having some generalized weakness at baseline and does require assistance when getting up and only utilizes her wheelchair. She notes that he cough is fairly frequent but very nonproductive and she noted it started last night. Vital signs on admission to the Emergency Room showed that she had a fever of 102.4 with pulse 86, blood pressure 106/47. She is satting 94% on room air with respirations 20. Initial laboratory studies showed she had 16,600 white count with a left shift but no bands. Chemistries showed BUN 23, creatinine 3.76 with potassium 4.5. Urinalysis showed a small amount of blood, small amount of bilirubin, greater than 9 pH, 100 protein. Microscopic showed to be within normal limits. Blood cultures were completed. Flu swab was completed which was showing to be negative for A and B Influenza by PCR. She had a chest x-ray completed which showed a right lower infiltrate suggestive of possible pneumonia. She was initiated on antibiotic therapy with Rocephin and azithromycin in the E. R. and now is going to be placed in observation overnight for close monitoring with anticipation of hopefully being able to discharge later tomorrow to continue with dialysis on Sunday. She was admitted in stable condition. LABORATORY: White count on admission was 16,600. At discharge, it was going down to 13,500. Hemoglobin 9.7, hematocrit 30.1 at discharge. Platelet count 101,000. Differential was with a left shift on admission, but was resolving prior to discharge. Chemistries showed normal electrolytes with potassium 4.5 and at discharge 4.2. BUN was 38 at discharge. Creatinine was initially 3.76 and at discharge was 4.91. Glucoses ranged from 113 to 335. Total bilirubin was slightly elevated at 1.2. All other liver functions were within normal limits. Urinalysis showed 100 protein, small amount of blood, small amount of bilirubin, otherwise within normal limits. MICROBIOLOGY: Blood culture showed no growth at 3 days. Influenza A and B were both negative by PCR. RADIOLOGY: Chest x-ray initially in the Emergency Department, single view, per radiologic interpretation showed right basilar atelectasis and/or pneumonia with elevation of the right hemidiaphragm. Repeat chest x-ray on the morning of discharge per radiologic interpretation showed grossly stable diffuse interstitial opacities which may represent chronic changes, edema and/or pneumonia. HOSPITAL COURSE: Ms. Ortega was placed in observation overnight from the Emergency Room and initiated on antibiotic therapy for right sided lower pneumonia. She was started on Rocephin and azithromycin. Clinically, she showed good improvement and was no longer running a fever. After talking with Dr. Bello, he agreed the patient could be discharged to continue with dialysis on Sunday and continue antibiotic therapy with Levaquin. PLAN: Ms. Ortega was discharged on 09/08/[address] Bello and have dialysis on Sunday. She was to resume her regular diet which included diabetic diet as tolerated. Activity to increase as tolerated. MEDICATIONS AT DISCHARGE: 1. Levaquin 250 mg daily for 7 days. 2. Azithromycin 250 mg daily for 4 days. 3. Albuterol treatments as needed, updraft 2.5 mg q.4h. All other medications prior to hospitalization were to resume. CONDITION AT DISCHARGE: Stable and improved awaiting dialysis on Sunday. DISPOSITION: Discharge back to [facility]. #[id number] MTDD
== END 2018-09-08 15:00 ==
LOC: ER 08:28 → INTOOBSV 10:30 → MS 10:30 → ER 10:58
PROVIDERS: ADMIT Nurse Practitioner Family; ATTEND Nurse Practitioner Family
DX: J18.9 Pneumonia, unspecified organism (principal); R65.10 Systemic inflammatory response syndrome (SIRS) of non-infectious origin without acute organ dysfunction; D72.829 Elevated white blood cell count, unspecified; I12.0 Hypertensive chronic kidney disease with stage 5 chronic kidney disease or end stage renal disease; N18.6 End stage renal disease; Z99.2 Dependence on renal dialysis; E11.22 Type 2 diabetes mellitus with diabetic chronic kidney disease; M35.3 Polymyalgia rheumatica; F03.90 Unspecified dementia, unspecified severity, without behavioral disturbance, psychotic disturbance, mood disturbance, and anxiety; F05 Delirium due to known physiological condition; K21.9 Gastro-esophageal reflux disease without esophagitis; E03.9 Hypothyroidism, unspecified; I48.91 Unspecified atrial fibrillation; M19.90 Unspecified osteoarthritis, unspecified site; E66.9 Obesity, unspecified; Z68.41 Body mass index [BMI] 40.0-44.9, adult; Z79.4 Long term (current) use of insulin; Z79.899 Other long term (current) drug therapy; Z88.3 Allergy status to other anti-infective agents; Z88.6 Allergy status to analgesic agent; Z88.8 Allergy status to other drugs, medicaments and biological substances; Z96.653 Presence of artificial knee joint, bilateral; Z85.42 Personal history of malignant neoplasm of other parts of uterus; Z80.1 Family history of malignant neoplasm of trachea, bronchus and lung
CPT/HCPCS: 96366; 96367; 96365; 96376; 96372 ×2; Q0144; J0696 ×2; J7050 ×3; J0456; J7620 ×4; J1815 ×2; 80048; 80053; 82948 ×4; 36415 ×3; 81001; 85025 ×2; 87040 ×2; 36416 ×4; 71045; 71046; 94640 ×7; 94760; 94762; 99285; 87502

== ENCOUNTER 2018-09-11 07:43 | Emergency (ER) | payer OTHER ==
[2018-09-11 07:56] VITALS: BP 117/67; O2SAT 95
--- NOTE | 2018-09-11 08:10 | ED.PDOC ---
History of Present Illness - General Chief Complaint: ENT Problem Stated Complaint: Nosebleed Time Seen by Provider: 09/11/18 08:07 Source: patient, family Exam Limitations: no limitations - History of Present Illness Initial Comments: patient comes in today with nosebleed 30 minutes that has not stopped despite pressure and packing the nostril with some tissue. Patient states she is taking Eloquis for atrial fibrillation. Patient was recently treated for pneumonia but currently has been an outpatient. Patient has had nosebleeds infrequently and does not have any other bleeding today. No fevers chills, cough, nausea or vomiting. Timing/Duration: abrupt Severity: moderate EENT Location: nose Prearrival Treatment: squeezing nostrils Improving Factors: nothing Allergies/Adverse Reactions: Allergies NO KNOWN ALLERGY Allergy (Verified 09/11/18 07:47) Home Medications: Ambulatory Orders Acetaminophen [Tylenol] 650 mg PO Q6H PRN 07/05/16 Citalopram Hydrobromide [Celexa] 20 mg PO DAILY 07/05/16 Clonidine HCl 0.1 mg PO Q8H PRN 07/05/16 Cyclobenzaprine HCl [Flexeril] 5 mg PO BID 07/05/16 Diphenhydramine HCl 25 mg PO Q4H PRN 07/05/16 Docusate Sodium 100 mg PO BID 07/05/16 Insulin Detemir [Levemir Pen] 55 unit SUBCU BID 07/05/16 Multiple Vitamin [Multi Vitamin Daily] 1 tab PO DAILY 07/05/16 Ondansetron [Ondansetron Odt] 4 mg PO Q4HR PRN 07/05/16 Zolpidem Tartrate 5 mg PO BEDTIME 07/05/16 Cyanocobalamin [Vitamin B12] 1,000 mcg IM MONTHLY 07/06/16 Polyethylene Glycol 3350 [Miralax] 17 gm PO DAILY PRN 07/06/16 Sevelamer Carbonate [Renvela] 1,600 mg PO TIDFD 10/24/16 Gabapentin 100 mg PO BID 09/19/17 Liraglutide [Victoza] 18 mg SC DAILY 09/19/17 Memantine HCl [Namenda Xr] 28 mg PO DAILY 09/19/17 Dextrose (Diabetic Use) [Glutose 15] 40 % PO PRN PRN 10/02/17 Glucagon HCl (Diagnostic) [Glucagon] 1 mg IJ PRN PRN 10/02/17 Insulin Lispro [Humalog] 3 unit SUBCU AC 10/02/17 Pantoprazole Sodium 40 mg PO DAILY 11/03/17 Apixaban [Eliquis] 5 mg PO BID 09/07/18 Atorvastatin Calcium [Lipitor] 10 mg PO BEDTIME 09/07/18 Donepezil Hydrochloride [Donepezil HCl] 23 mg PO BEDTIME 09/07/18 Doxepin HCl 50 mg PO BEDTIME 09/07/18 Fluticasone Prop 0.05% Nasal [Flonase Nasal [place]] 50 mcg NA BEDTIME 09/07/18 Pregabalin [Lyrica] 100 mg PO BEDTIME 09/07/18 Albuterol Sulfate Nebs [Proventil Nebs] 2.5 mg NEB Q4H 5 Days vial 09/08/18 Azithromycin Tab [Zithromax Tab] 250 mg PO QD 4 Days #4 tab 09/08/18 Levofloxacin [Levaquin] 250 mg PO DAILY 10 Days #10 tablet 09/08/18 Review of Systems - Review of Systems Constitutional: States: no symptoms reported. Denies: chills, fever EENTM: States: see HPI, other - nose bleed Respiratory: States: no symptoms reported. Denies: cough, short of breath Cardiology: States: no symptoms reported. Denies: chest pain Gastrointestinal/Abdominal: States: no symptoms reported. 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 Hx Cancer: Yes - uterine Hx of HIV: No Hx Hepatitis C: No Hx MRSA: No - Vaccination History Hx Tetanus, Diphtheria Vaccination: No Hx Influenza Vaccination: Yes - 06/19/18 Hx Pneumococcal Vaccination: - unknown - Social History Hx Tobacco Use: No Hx Chewing Tobacco Use: No Hx Alcohol Use: No Hx Substance Use: No Hx Substance Use Treatment: No Hx Depression: No Hx Physical Abuse: No Hx Emotional Abuse: No Hx Suspected Abuse: No - Activities of Daily Living Prison/Assisted Living (if applicable):: [facility] - Female History Patient : No Family Medical History - Family History Mother Family History: Unknown Hx Family Stroke: Yes - several family members Hx Family Diabetes: Yes - several family members Physical Exam - Physical Exam General Appearance: Alert, Anxious Eye Exam: bilateral normal Throat Exam: other - bleeding from Right nostril after 10 min of pressure bleeding stopped Neck: non-tender, full range of motion Cardiovascular/Respiratory: regular rate, rhythm, no M/R/G, normal breath sounds , no respiratory distress Abdominal Exam: non-tender Neurologic: alert, oriented x 3 Progress - Progress Progress: 09/11/18 08:19 after bleeding had subsided for 10 min paper that patient had placed was removed and nose was examined with speculum. Raw area with stigmata of recent bleeding was seen on middle turbinate and that area was treated with silver nitrate. Good cauterization was seen and no additional bleeding occured. - Results/Orders Results/Orders: Laboratory Results WBC 8.2 K/mm3 (4.8-10.8) 09/11/18 08:05 RBC 3.06 M/mm3 (4.20-5.40) L 09/11/18 08:05 Hgb 10.9 gm/dL (12.0-16.0) L 09/11/18 08:05 Hct 33.4 % (36.0-47.0) L 09/11/18 08:05 MCV 109.1 fl (81.0-99.0) H 09/11/18 08:05 MCH 35.6 pg (27.0-31.0) H 09/11/18 08:05 MCHC 32.7 g/dL (33.0-37.0) L 09/11/18 08:05 RDW 17.2 % (11.5-14.5) H 09/11/18 08:05 Plt Count 135 K/mm3 (130-400) 09/11/18 08:05 MPV 9.1 fl (7.40-10.4) 09/11/18 08:05 Absolute Neuts (auto) 5.50 K/uL (1.8-6.8) 09/11/18 08:05 Absolute Lymphs (auto) 1.60 K/uL (1.0-3.4) 09/11/18 08:05 Absolute Monos (auto) 0.70 K/uL (0.2-0.8) 09/11/18 08:05 Absolute Eos (auto) 0.30 K/uL (0.0-0.4) 09/11/18 08:05 Absolute Basos (auto) 0.10 K/uL (0.0-0.1) 09/11/18 08:05 Neutrophils % 67.2 % (42.0-78.0) 09/11/18 08:05 Lymphocytes % 19.8 % (20.0-50.0) L 09/11/18 08:05 Monocytes % 8.5 % (2.0-9.0) 09/11/18 08:05 Eosinophils % 3.5 % (1.0-5.0) 09/11/18 08:05 Basophils % 1.0 % (0.0-2.0) 09/11/18 08:05 PT 11.2 SECONDS (9.0-10.9) H 09/11/18 08:05 INR 1.12 (0.9-1.15) 09/11/18 08:05 PTT (SP) 29.0 SECONDS (21.8-31.6) 09/11/18 08:05 Departure - Departure Clinical Impression: Epistaxis Disposition: Discharge to Home or Self Care Condition: Good Departure Forms: ED Discharge - Pt. Copy, Patient Portal Self Enrollment Instructions: DI for Ear Pain-Adult Diet: regular diet Referrals: Darrel Marroquin III, MD [Primary Care Provider] - 1-2 Weeks Home Medications: Ambulatory Orders Acetaminophen [Tylenol] 650 mg PO Q6H PRN 07/05/16 Citalopram Hydrobromide [Celexa] 20 mg PO DAILY 07/05/16 Clonidine HCl 0.1 mg PO Q8H PRN 07/05/16 Cyclobenzaprine HCl [Flexeril] 5 mg PO BID 07/05/16 Diphenhydramine HCl 25 mg PO Q4H PRN 07/05/16 Docusate Sodium 100 mg PO BID 07/05/16 Insulin Detemir [Levemir Pen] 55 unit SUBCU BID 07/05/16 Multiple Vitamin [Multi Vitamin Daily] 1 tab PO DAILY 07/05/16 Ondansetron [Ondansetron Odt] 4 mg PO Q4HR PRN 07/05/16 Zolpidem Tartrate 5 mg PO BEDTIME 07/05/16 Cyanocobalamin [Vitamin B12] 1,000 mcg IM MONTHLY 07/06/16 Polyethylene Glycol 3350 [Miralax] 17 gm PO DAILY PRN 07/06/16 Sevelamer Carbonate [Renvela] 1,600 mg PO TIDFD 10/24/16 Gabapentin 100 mg PO BID 09/19/17 Liraglutide [Victoza] 18 mg SC DAILY 09/19/17 Memantine HCl [Namenda Xr] 28 mg PO DAILY 09/19/17 Dextrose (Diabetic Use) [Glutose 15] 40 % PO PRN PRN 10/02/17 Glucagon HCl (Diagnostic) [Glucagon] 1 mg IJ PRN PRN 10/02/17 Insulin Lispro [Humalog] 3 unit SUBCU AC 10/02/17 Pantoprazole Sodium 40 mg PO DAILY 11/03/17 Apixaban [Eliquis] 5 mg PO BID 09/07/18 Atorvastatin Calcium [Lipitor] 10 mg PO BEDTIME 09/07/18 Donepezil Hydrochloride [Donepezil HCl] 23 mg PO BEDTIME 09/07/18 Doxepin HCl 50 mg PO BEDTIME 09/07/18 Fluticasone Prop 0.05% Nasal [Flonase Nasal [place]] 50 mcg NA BEDTIME 09/07/18 Pregabalin [Lyrica] 100 mg PO BEDTIME 09/07/18 Albuterol Sulfate Nebs [Proventil Nebs] 2.5 mg NEB Q4H 5 Days vial 09/08/18 Azithromycin Tab [Zithromax Tab] 250 mg PO QD 4 Days #4 tab 09/08/18 Levofloxacin [Levaquin] 250 mg PO DAILY 10 Days #10 tablet 09/08/18 Additional Instructions: return to ER for return of bleeding no relieved with 15 min of pressure to nose. Follow up with PCP in 2-3 days to recheck area
[2018-09-11 09:02] VITALS: TEMP 98
== END 2018-09-11 09:03 | disposition home or self-care (01) ==
LOC: ER 07:43
DX: R04.0 Epistaxis (principal); I48.91 Unspecified atrial fibrillation; I12.0 Hypertensive chronic kidney disease with stage 5 chronic kidney disease or end stage renal disease; E11.22 Type 2 diabetes mellitus with diabetic chronic kidney disease; N18.6 End stage renal disease; K21.9 Gastro-esophageal reflux disease without esophagitis; E03.9 Hypothyroidism, unspecified; F03.90 Unspecified dementia, unspecified severity, without behavioral disturbance, psychotic disturbance, mood disturbance, and anxiety; Z95.0 Presence of cardiac pacemaker; Z79.01 Long term (current) use of anticoagulants; Z99.2 Dependence on renal dialysis; Z85.42 Personal history of malignant neoplasm of other parts of uterus; Z87.01 Personal history of pneumonia (recurrent); Z79.899 Other long term (current) drug therapy; Z79.4 Long term (current) use of insulin

== ENCOUNTER 2019-01-02 13:36 | Emergency (ER) | payer OTHER ==
--- NOTE | 2019-01-02 13:50 | ED.PDOC ---
History of Present Illness - General Chief Complaint: Trauma Stated Complaint: Fell out of w/c Time Seen by Provider: 01/02/19 13:45 Source: patient, EMS Exam Limitations: no limitations - History of Present Illness Timing/Duration: 4-6 hours Severity: moderate Improving Factors: rest Worsening Factors: movement Associated Symptoms: denies symptoms Allergies/Adverse Reactions: Allergies NO KNOWN ALLERGY Allergy (Verified 01/02/19 13:52) Home Medications: Ambulatory Orders Acetaminophen [Tylenol] 650 mg PO Q6H PRN 07/05/16 Citalopram Hydrobromide [Celexa] 20 mg PO DAILY 07/05/16 Clonidine HCl 0.1 mg PO Q8H PRN 07/05/16 Cyclobenzaprine HCl [Flexeril] 5 mg PO BID 07/05/16 Diphenhydramine HCl 25 mg PO Q4H PRN 07/05/16 Docusate Sodium 100 mg PO BID 07/05/16 Insulin Detemir [Levemir Pen] 55 unit SUBCU BID 07/05/16 Multiple Vitamin [Multi Vitamin Daily] 1 tab PO DAILY 07/05/16 Ondansetron [Ondansetron Odt] 4 mg PO Q4HR PRN 07/05/16 Zolpidem Tartrate 5 mg PO BEDTIME 07/05/16 Cyanocobalamin [Vitamin B12] 1,000 mcg IM MONTHLY 07/06/16 Polyethylene Glycol 3350 [Miralax] 17 gm PO DAILY PRN 07/06/16 Sevelamer Carbonate [Renvela] 1,600 mg PO TIDFD 10/24/16 Liraglutide [Victoza] 18 mg SC DAILY 09/19/17 Memantine HCl [Namenda Xr] 28 mg PO DAILY 09/19/17 Dextrose (Diabetic Use) [Glutose 15] 40 % PO PRN PRN 10/02/17 Glucagon HCl (Diagnostic) [Glucagon] 1 mg IJ PRN PRN 10/02/17 Insulin Lispro [Humalog] 3 unit SUBCU AC 10/02/17 Pantoprazole Sodium 40 mg PO DAILY 11/03/17 Apixaban [Eliquis] 2.5 mg PO BID 09/07/18 Atorvastatin Calcium [Lipitor] 10 mg PO BEDTIME 09/07/18 Donepezil Hydrochloride [Donepezil HCl] 23 mg PO BEDTIME 09/07/18 Doxepin HCl 50 mg PO BEDTIME 09/07/18 Fluticasone Prop 0.05% Nasal [Flonase Nasal [place]] 50 mcg NA BEDTIME 09/07/18 Pregabalin [Lyrica] 100 mg PO BID 09/07/18 Acetaminophen W/ Codeine [Tylenol W/ CODEINE #3] 1 ea PO Q6H PRN 01/02/19 Albuterol Sulfate Nebs [Proventil Nebs] 2.5 mg NEB Q6H 01/02/19 Ergocalciferol [Drisdol] 50,000 unit PO DAILY 01/02/19 Montelukast [Singulair] 10 mg PO DAILY 01/02/19 Review of Systems - Review of Systems Constitutional: Denies: malaise, weakness EENTM: Denies: blurred vision, double vision Respiratory: States: no symptoms reported Cardiology: States: no symptoms reported Gastrointestinal/Abdominal: States: no symptoms reported Genitourinary: States: no symptoms reported Musculoskeletal: Denies: back pain, joint pain, neck pain Skin: States: lumps - on forehead Neurological: Denies: headache, numbness, paresthesia Endocrine: States: no symptoms reported Hematologic/Lymphatic: States: no symptoms reported Past Medical History (General) - Patient Medical History Hx Seizures: No Hx Stroke: No Hx Dementia: Yes Hx Asthma: No Hx of COPD: No Hx Cardiac Disorders: Yes - A fib Hx Congestive Heart Failure: No Hx Pacemaker: Yes Hx Hypertension: Yes Hx Thyroid Disease: Yes - Hypo Hx Diabetes: Yes - type 2 Hx Gastroesophageal Reflux: Yes Hx Renal Disease: Yes - ESRD - Dialysis MWF Hx Cancer: Yes - uterine Hx of HIV: No Hx Hepatitis C: No Hx MRSA: No - Vaccination History Hx Tetanus, Diphtheria Vaccination: No Hx Influenza Vaccination: Yes - 06/19/18 Hx Pneumococcal Vaccination: - unknown - Social History Hx Tobacco Use: No Hx Chewing Tobacco Use: No Hx Alcohol Use: No Hx Substance Use: No Hx Substance Use Treatment: No Hx Depression: No Hx Physical Abuse: No Hx Emotional Abuse: No Hx Suspected Abuse: No - Female History Patient : No Family Medical History - Family History Mother Family History: Unknown Hx Family Stroke: Yes - several family members Hx Family Diabetes: Yes - several family members Physical Exam - Physical Exam General Appearance: Alert, No apparent distress Eye Exam: bilateral normal Ears, Nose, Throat: normal ENT inspection, normal pharynx, other - hematoma over mid forehead, 4 cm Neck: full range of motion, supple Respiratory: chest non-tender, normal breath sounds, no respiratory distress Cardiovascular/Chest: regular rate, rhythm Gastrointestinal/Abdominal: normal bowel sounds, non tender, soft Extremity: normal range of motion, no pedal edema, other - tender over distal R forefoot without swelling or discoloration Neurologic: no motor/sensory deficits, alert, normal mood/affect Skin Exam: normal color, warm/dry Departure - Departure Clinical Impression: Traumatic hematoma of forehead Qualifiers: Encounter type: initial encounter Qualified Code(s): S00.83XA - Contusion of other part of head, initial encounter Contusion of right foot including toes Qualifiers: Encounter type: initial encounter Qualified Code(s): S90.31XA - Contusion of right foot, initial encounter Fracture of fourth metatarsal bone of right foot Qualifiers: Encounter type: initial encounter Fracture type: closed Disposition: Discharge to SNF Departure Forms: ED Discharge - Pt. Copy, Patient Portal Self Enrollment Instructions: DI for Trauma Referrals: Darrel Marroquin III, MD [Primary Care Provider] - 1-2 Weeks Home Medications: Ambulatory Orders Acetaminophen [Tylenol] 650 mg PO Q6H PRN 07/05/16 Citalopram Hydrobromide [Celexa] 20 mg PO DAILY 07/05/16 Clonidine HCl 0.1 mg PO Q8H PRN 07/05/16 Cyclobenzaprine HCl [Flexeril] 5 mg PO BID 07/05/16 Diphenhydramine HCl 25 mg PO Q4H PRN 07/05/16 Docusate Sodium 100 mg PO BID 07/05/16 Insulin Detemir [Levemir Pen] 55 unit SUBCU BID 07/05/16 Multiple Vitamin [Multi Vitamin Daily] 1 tab PO DAILY 07/05/16 Ondansetron [Ondansetron Odt] 4 mg PO Q4HR PRN 07/05/16 Zolpidem Tartrate 5 mg PO BEDTIME 07/05/16 Cyanocobalamin [Vitamin B12] 1,000 mcg IM MONTHLY 07/06/16 Polyethylene Glycol 3350 [Miralax] 17 gm PO DAILY PRN 07/06/16 Sevelamer Carbonate [Renvela] 1,600 mg PO TIDFD 10/24/16 Liraglutide [Victoza] 18 mg SC DAILY 09/19/17 Memantine HCl [Namenda Xr] 28 mg PO DAILY 09/19/17 Dextrose (Diabetic Use) [Glutose 15] 40 % PO PRN PRN 10/02/17 Glucagon HCl (Diagnostic) [Glucagon] 1 mg IJ PRN PRN 10/02/17 Insulin Lispro [Humalog] 3 unit SUBCU AC 10/02/17 Pantoprazole Sodium 40 mg PO DAILY 11/03/17 Apixaban [Eliquis] 2.5 mg PO BID 09/07/18 Atorvastatin Calcium [Lipitor] 10 mg PO BEDTIME 09/07/18 Donepezil Hydrochloride [Donepezil HCl] 23 mg PO BEDTIME 09/07/18 Doxepin HCl 50 mg PO BEDTIME 09/07/18 Fluticasone Prop 0.05% Nasal [Flonase Nasal [place]] 50 mcg NA BEDTIME 09/07/18 Pregabalin [Lyrica] 100 mg PO BID 09/07/18 Acetaminophen W/ Codeine [Tylenol W/ CODEINE #3] 1 ea PO Q6H PRN 01/02/19 Albuterol Sulfate Nebs [Proventil Nebs] 2.5 mg NEB Q6H 01/02/19 Ergocalciferol [Drisdol] 50,000 unit PO DAILY 01/02/19 Montelukast [Singulair] 10 mg PO DAILY 01/02/19
--- NOTE | 2019-01-02 14:36 | CT ---
EXAM DESCRIPTION: Head CLINICAL HISTORY: head trauma COMPARISON: Previous head CT May 24, 2018 TECHNIQUE: Noncontrast head CT was performed with routine protocol. FINDINGS: Soft tissue hematoma in the left frontal region with no underlying frontal bone or frontal sinus fracture on the bone window images. Normal tim-white matter differentiation. Ventricles and sulci are normal for age. No high density hemorrhage, focal edema or shift of the midline. No sulcal effacement. Normal orbital contents. Basilar cisterns appear clear. Intact calvarium with no fracture or lytic lesion. Normal aeration of tympanic cavities and mastoid air cells. Extensive intracranial carotid calcification. No fluid levels in the paranasal sinuses. Skull base appears intact. Symmetrical internal auditory canals. Coronal and sagittal reformatted images confirm the findings. IMPRESSION: No acute intracranial pathologic process. This exam was performed according to our departmental dose-optimization program, which includes automated exposure control, adjustment of the mA and/or kV according to patient size and/or use of iterative reconstruction technique. Total DLP equals 859.97 mGycm. Electronically signed by: Valentín Tabares MD 01/02/2019 2:32 PM CDT
--- NOTE | 2019-01-02 14:39 | CT ---
EXAM DESCRIPTION: Cervical Spine CLINICAL HISTORY: head trauma COMPARISON: None Available. TECHNIQUE: Cervical CT is performed with thin-section axial imaging. MPRs are created and reviewed as well. FINDINGS: Axial bone window images reveal intact ring of C1. No abnormal widening of the atlantodens interval. No fracture of the vertebral bodies or transverse processes or posterior elements. Lung apices appear clear. Inhomogeneous nodule in the left thyroid lobe. Correlate with sono findings. Sagittal reformatted images show normal alignment of vertebral bodies and facets. No jumped facet or facet fracture. Normal craniocervical alignment. No prevertebral soft tissue swelling. No a avulsion of the spinous processes. Spondylosis: Extensive facet degenerative changes right more than left. Degenerative changes around the dens with spurring. Mild degenerative disc disease with posterior disc/osteophyte complexes at the lower cervical levels with no high-grade spinal stenosis. Coronal reformatted images show normal atlantooccipital and atlantoaxial alignment. The base of the dens is intact as is the body of C2. Intact lateral masses. IMPRESSION: Negative for fracture or posttraumatic subluxation. This exam was performed according to our departmental dose-optimization program, which includes automated exposure control, adjustment of the mA and/or kV according to patient size and/or use of iterative reconstruction technique. Total DLP equals 465.59 mGycm. Electronically signed by: Valentín Tabares MD 01/02/2019 2:36 PM CDT
--- NOTE | 2019-01-02 14:44 | RAD ---
EXAM DESCRIPTION: Foot,Right 3 Views CLINICAL HISTORY: fell with painful distal foot COMPARISON: None Available. TECHNIQUE: AP, LATERAL, AND OBLIQUE FINDINGS: The visualized bones appear poorly mineralized. No acute fracture or dislocation. The soft tissues appear grossly unremarkable. Hallux valgus with moderate osteoarthritis of the first metatarsophalangeal joint. Midfoot arthropathy is also identified. Erosions are identified along the medial aspect of the head of the fourth metatarsal with a possible fracture of the metatarsal neck. Posterior and plantar calcaneal spurs are noted. IMPRESSION: Possible fracture of the neck of the fourth metatarsal. Hallux valgus with moderate osteoarthritis of the first metatarsophalangeal joint of the right foot. Electronically signed by: Livia Bello MD 01/02/2019 2:41 PM CDT
[2019-01-02] MEDS ORDERED: HYDROcodone 7.5MG/APAP 325MG 1 EA TAB PO ONE (15:06)
[2019-01-02 15:56] VITALS: BP 127/90; TEMP 97; O2SAT 99
== END 2019-01-02 15:50 ==
LOC: ER 13:36
DX: S00.83XA Contusion of other part of head, initial encounter (principal); S92.341A Displaced fracture of fourth metatarsal bone, right foot, initial encounter for closed fracture; M47.812 Spondylosis without myelopathy or radiculopathy, cervical region; M50.30 Other cervical disc degeneration, unspecified cervical region; N18.6 End stage renal disease; E11.22 Type 2 diabetes mellitus with diabetic chronic kidney disease; I12.0 Hypertensive chronic kidney disease with stage 5 chronic kidney disease or end stage renal disease; I48.91 Unspecified atrial fibrillation; E03.9 Hypothyroidism, unspecified; K21.9 Gastro-esophageal reflux disease without esophagitis; F03.90 Unspecified dementia, unspecified severity, without behavioral disturbance, psychotic disturbance, mood disturbance, and anxiety; Z95.0 Presence of cardiac pacemaker; Z85.42 Personal history of malignant neoplasm of other parts of uterus; Z79.899 Other long term (current) drug therapy; Z79.4 Long term (current) use of insulin; W05.0XXA Fall from non-moving wheelchair, initial encounter; Y92.9 Unspecified place or not applicable

== ENCOUNTER 2019-01-31 11:52 | Emergency (ER) | payer OTHER ==
[2019-01-31 12:24] VITALS: TEMP 97.7
--- NOTE | 2019-01-31 12:24 | ED.PDOC ---
History of Present Illness - General Chief Complaint: General Stated Complaint: shaking,tightness in chest,blurry vision Time Seen by Provider: 01/31/19 12:16 Source: patient Exam Limitations: no limitations - History of Present Illness Initial Comments: the patient is a 78-year-old female presenting to emergency room secondary to symptoms of tremulousness for the last couple of days. She does take several medications that can be associated with this. She does have chronic renal insufficiency. No focal weakness. No neurological changes otherwise. She does have a sore throat and a runny nose. No nausea or vomiting. The patient is pleasant and cooperative and otherwise in no acute distress.she has had more of a blurry vision since her fall 1 month ago Timing/Duration: unsure Severity: mild Improving Factors: nothing Worsening Factors: nothing Associated Symptoms: denies symptoms Allergies/Adverse Reactions: Allergies NO KNOWN ALLERGY Allergy (Verified 01/02/19 13:52) Home Medications: Ambulatory Orders Acetaminophen [Tylenol] 650 mg PO Q6H PRN 07/05/16 Citalopram Hydrobromide [Celexa] 20 mg PO BEDTIME 07/05/16 Clonidine HCl 0.1 mg PO Q8H PRN 07/05/16 Cyclobenzaprine HCl [Flexeril] 5 mg PO BID 07/05/16 Diphenhydramine HCl 25 mg PO Q4H PRN 07/05/16 Docusate Sodium 100 mg PO BID 07/05/16 Insulin Detemir [Levemir Pen] 55 unit SUBCU BID 07/05/16 Multiple Vitamin [Multi Vitamin Daily] 1 tab PO DAILY 07/05/16 Ondansetron [Ondansetron Odt] 4 mg PO Q4HR PRN 07/05/16 Zolpidem Tartrate 5 mg PO BEDTIME 07/05/16 Cyanocobalamin [Vitamin B12] 1,000 mcg IM MONTHLY 07/06/16 Polyethylene Glycol 3350 [Miralax] 17 gm PO DAILY PRN 07/06/16 Sevelamer Carbonate [Renvela] 2,400 mg PO TIDFD 10/24/16 Liraglutide [Victoza] 18 mg SC DAILY 09/19/17 Memantine HCl [Namenda Xr] 28 mg PO DAILY 09/19/17 Glucagon HCl (Diagnostic) [Glucagon] 1 mg IJ PRN PRN 10/02/17 Insulin Lispro [Humalog] 3 unit SUBCU AC 10/02/17 Pantoprazole Sodium 40 mg PO DAILY 11/03/17 Apixaban [Eliquis] 2.5 mg PO BID 09/07/18 Atorvastatin Calcium [Lipitor] 10 mg PO BEDTIME 09/07/18 Donepezil Hydrochloride [Donepezil HCl] 23 mg PO BEDTIME 09/07/18 Doxepin HCl 50 mg PO BEDTIME 09/07/18 Pregabalin [Lyrica] 100 mg PO BID 09/07/18 Acetaminophen W/ Codeine [Tylenol W/ CODEINE #3] 1 ea PO Q6H PRN 01/02/19 Albuterol Sulfate Nebs [Proventil Nebs] 2.5 mg NEB Q6H 01/02/19 Ergocalciferol [Drisdol] 50,000 unit PO DAILY 01/02/19 Montelukast [Singulair] 10 mg PO BEDTIME 01/02/19 Primidone 50 mg PO DAILY 01/31/19 Triamcinolone Acetonide (Topic [Triamcinolone Acetonide] 0.025 % EX BID 01/31/19 levoFLOXacin [Levaquin] 500 mg PO DAILY #3 tab 01/31/19 Review of Systems - Review of Systems Constitutional: States: no symptoms reported EENTM: States: no symptoms reported Respiratory: States: no symptoms reported Cardiology: States: no symptoms reported Gastrointestinal/Abdominal: States: no symptoms reported Genitourinary: States: no symptoms reported Musculoskeletal: States: no symptoms reported - he does have some right shoulder pain to palpation. This has been there since her fall 1 month ago. Skin: States: no symptoms reported Neurological: States: anxiety, tremors Endocrine: States: no symptoms reported All other Systems: No Change from Baseline Past Medical History (General) - Patient Medical History Hx Seizures: No Hx Stroke: No Hx Dementia: Yes Hx Asthma: No Hx of COPD: No Hx Cardiac Disorders: Yes - A fib Hx Congestive Heart Failure: No Hx Pacemaker: Yes Hx Hypertension: Yes Hx Thyroid Disease: Yes - Hypo Hx Diabetes: Yes - type 2 Hx Gastroesophageal Reflux: Yes Hx Renal Disease: Yes - ESRD - Dialysis MWF Hx Cancer: Yes - Uterine,Ovarian,Breast Hx of HIV: No Hx Hepatitis C: No Hx MRSA: No Surgical History: pacemaker, Hysterectomy - Vaccination History Hx Tetanus, Diphtheria Vaccination: No Hx Influenza Vaccination: Yes - 06/19/18 Hx Pneumococcal Vaccination: Yes - Social History Hx Tobacco Use: No Hx Chewing Tobacco Use: No Hx Alcohol Use: No Hx Substance Use: No Hx Substance Use Treatment: No Hx Depression: No Hx Physical Abuse: No Hx Emotional Abuse: No Hx Suspected Abuse: No - Activities of Daily Living [facility] (if applicable[facility]:: [facility] - Female History Patient : No Family Medical History - Family History Mother Family History: Unknown Hx Family Stroke: Yes - several family members Hx Family Diabetes: Yes - several family members Physical Exam - Physical Exam General Appearance: Alert, Anxious, No apparent distress Eye Exam: bilateral normal - pupils are equally reactive to light and accommodation. Ears, Nose, Throat: hearing grossly normal, normal ENT inspection, normal pharynx Neck: full range of motion, supple Respiratory: lungs clear, normal breath sounds, no respiratory distress, no accessory muscle use, other - she does have mild right anterior upper chest wall discomfort palpation. There is some soreness over the right clavicle. No gross deformity. Cardiovascular/Chest: normal peripheral pulses, regular rate, rhythm, no edema Peripheral Pulses: radial,right: 2+, radial,left: 2+, dorsalis pedis,right: 2+, dorsalis pedis,left: 2+ Gastrointestinal/Abdominal: non tender, soft Rectal Exam: deferred Back Exam: no CVA tenderness, no vertebral tenderness Extremity: non-tender, normal inspection, no pedal edema, normal capillary refill Neurologic: cream hauler II-XII nml as tested, alert, normal mood/affect - anxious, oriented x 3, other - no obvious abnormal tremors at this time Skin Exam: normal color Comments: Vital Signs - 8 hr 01/31/19 01/31/19 01/31/19 12:02 12:30 13:04 Temperature 97.7 F Pulse Rate [ 70 70 69 Right Brachial] Respiratory 20 23 16 Rate Blood Pressure 125/46 135/41 111/56 [Right Arm] O2 Sat by Pulse 96 97 95 Oximetry 01/31/19 01/31/19 01/31/19 14:00 14:30 15:00 Temperature Pulse Rate [ 74 70 60 Right Brachial] Respiratory 16 20 16 Rate Blood Pressure 120/60 129/56 129/40 [Right Arm] O2 Sat by Pulse 97 93 L 95 Oximetry 01/31/19 16:00 Temperature Pulse Rate [ 61 Right Brachial] Respiratory 20 Rate Blood Pressure 133/62 [Right Arm] O2 Sat by Pulse 97 Oximetry Progress - Progress Progress: 01/31/19 16:43 the patient's 78-year-old female presenting secondary to feeling of tremulousness and a mild headache. The patient also has a pharyngitis that is likely viral and what appears to be a small urinary tract infection on top of some mild dehydration and hyperglycemia. The patient was given a liter of IV fluids which will hopefully help with the headache eventually and with the dehydration of course. She was given a dose of Levaquin and will be written for 3 more days of low-dose Levaquin for the urinary tract infection. The viral pharyngitis Will have to run its course. The viral infection and the urinary tract infection as well as the mild acute on chronic renal insufficiency likely contributing to the tremulousness. The patient needs to keep herself well hydrated and monitor her blood sugars a little more closely. ER warnings were given for any acute worsening. Follow up with primary care doctor next week.The patient did also receive a dose of IV insulin for moderate hyperglycemia. 01/31/19 16:48 - Results/Orders Results/Orders: EKG shows normal sinus rhythm at 67 bpm. She is ventricularly paced. Poor R- wave progression. Chronic T-wave inversions in inferior leads. Mild left axis deviation. chest x-ray shows no acute pathology. Laboratory Results - last 24 hr 01/31/19 01/31/19 01/31/19 12:30 12:30 12:30 WBC 4.9 RBC 2.87 L Hgb 10.8 L Hct 32.2 L MCV 112.1 H MCH 37.6 H MCHC 33.5 RDW 17.0 H Plt Count 108 L MPV 10.2 Absolute Neuts (auto) 3.10 Absolute Lymphs (auto) 1.20 Absolute Monos (auto) 0.40 Absolute Eos (auto) 0.10 Absolute Basos (auto) 0.00 Neutrophils % 63.1 Lymphocytes % 24.5 Monocytes % 8.6 Eosinophils % 2.9 Basophils % 0.9 Sodium 138 Potassium 4.2 Chloride 94 L Carbon Dioxide 29 Anion Gap 19.2 H BUN 40 H Creatinine 4.28 H BUN/Creatinine Ratio 9.3 L Random Glucose 335 H Serum Osmolality 298.6 H Lactic Acid 2.7 H* Calcium 7.4 L Magnesium 2.2 Total Bilirubin 0.5 AST 55 H ALT 44 Alkaline Phosphatase 150 H Creatine Kinase 80 CK-MB (CK-2) 1.9 CK-MB (CK-2) % Not Reportable Troponin I < 0.02 B-Natriuretic Peptide 257.0 H* Serum Total Protein 7.0 Albumin 3.6 Globulin 3.4 Albumin/Globulin Ratio 1.1 TSH 1.06 Urine Color Urine Appearance Urine pH Ur Specific Lam[place] Urine Protein Urine Glucose (UA) Urine Ketones Urine Blood Urine Nitrite Urine Bilirubin Urine Urobilinogen Ur Leukocyte Esterase Urine RBC Urine WBC Ur Epithelial Cells Amorphous Sediment Urine Bacteria 01/31/19 15:37 WBC RBC Hgb Hct MCV MCH MCHC RDW Plt Count MPV Absolute Neuts (auto) Absolute Lymphs (auto) Absolute Monos (auto) Absolute Eos (auto) Absolute Basos (auto) Neutrophils % Lymphocytes % Monocytes % Eosinophils % Basophils % Sodium Potassium Chloride Carbon Dioxide Anion Gap BUN Creatinine BUN/Creatinine Ratio Random Glucose Serum Osmolality Lactic Acid Calcium Magnesium Total Bilirubin AST ALT Alkaline Phosphatase Creatine Kinase CK-MB (CK-2) CK-MB (CK-2) % Troponin I B-Natriuretic Peptide Serum Total Protein Albumin Globulin Albumin/Globulin Ratio TSH Urine Color Yellow Urine Appearance Sl cloudy Urine pH 6.0 Ur Specific [place] 1.020 Urine Protein 30 Urine Glucose (UA) Negative Urine Ketones 15 H Urine Blood Trace-intact H Urine Nitrite Positive H Urine Bilirubin Small H Urine Urobilinogen 0.2 Ur Leukocyte Esterase Trace H Urine RBC 3-5 H Urine WBC 3-5 H Ur Epithelial Cells 3-5 Amorphous Sediment 1+ Urine Bacteria Rare Departure - Departure Clinical Impression: Viral pharyngitis, Dehydration, Tremor Urinary tract infection Qualifiers: Urinary tract infection type: acute cystitis Hematuria presence: without hematuria Qualified Code(s): N30.00 - Acute cystitis without hematuria Acute on chronic renal failure Qualifiers: Acute renal failure type: unspecified Chronic kidney disease stage: stage 4 (severe) Qualified Code(s): N17.9 - Acute kidney failure, unspecified; N18.4 - Chronic kidney disease, stage 4 (severe) Diabetes mellitus Qualifiers: Diabetes mellitus type: type 2 Diabetes mellitus 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 Copy, Patient Portal Self Enrollment Instructions: Sore Throat, Adult (DC), Urinary Tract Infection, Adult (DC), Dehydration, Adult (DC), Hyperglycemia, Adult (DC) Diet: diabetic diet Activity: increase activity as tolerated Referrals: Darrel Marroquin III, MD [Primary Care Provider] - 1-2 Weeks Prescriptions: levoFLOXacin [Levaquin] 500 mg PO DAILY #3 tab Home Medications: Ambulatory Orders Acetaminophen [Tylenol] 650 mg PO Q6H PRN 07/05/16 Citalopram Hydrobromide [Celexa] 20 mg PO BEDTIME 07/05/16 Clonidine HCl 0.1 mg PO Q8H PRN 07/05/16 Cyclobenzaprine HCl [Flexeril] 5 mg PO BID 07/05/16 Diphenhydramine HCl 25 mg PO Q4H PRN 07/05/16 Docusate Sodium 100 mg PO BID 07/05/16 Insulin Detemir [Levemir Pen] 55 unit SUBCU BID 07/05/16 Multiple Vitamin [Multi Vitamin Daily] 1 tab PO DAILY 07/05/16 Ondansetron [Ondansetron Odt] 4 mg PO Q4HR PRN 07/05/16 Zolpidem Tartrate 5 mg PO BEDTIME 07/05/16 Cyanocobalamin [Vitamin B12] 1,000 mcg IM MONTHLY 07/06/16 Polyethylene Glycol 3350 [Miralax] 17 gm PO DAILY PRN 07/06/16 Sevelamer Carbonate [Renvela] 2,400 mg PO TIDFD 10/24/16 Liraglutide [Victoza] 18 mg SC DAILY 09/19/17 Memantine HCl [Namenda Xr] 28 mg PO DAILY 09/19/17 Glucagon HCl (Diagnostic) [Glucagon] 1 mg IJ PRN PRN 10/02/17 Insulin Lispro [Humalog] 3 unit SUBCU AC 10/02/17 Pantoprazole Sodium 40 mg PO DAILY 11/03/17 Apixaban [Eliquis] 2.5 mg PO BID 09/07/18 Atorvastatin Calcium [Lipitor] 10 mg PO BEDTIME 09/07/18 Donepezil Hydrochloride [Donepezil HCl] 23 mg PO BEDTIME 09/07/18 Doxepin HCl 50 mg PO BEDTIME 09/07/18 Pregabalin [Lyrica] 100 mg PO BID 09/07/18 Acetaminophen W/ Codeine [Tylenol W/ CODEINE #3] 1 ea PO Q6H PRN 01/02/19 Albuterol Sulfate Nebs [Proventil Nebs] 2.5 mg NEB Q6H 01/02/19 Ergocalciferol [Drisdol] 50,000 unit PO DAILY 01/02/19 Montelukast [Singulair] 10 mg PO BEDTIME 01/02/19 Primidone 50 mg PO DAILY 01/31/19 Triamcinolone Acetonide (Topic [Triamcinolone Acetonide] 0.025 % EX BID 01/31/19 levoFLOXacin [Levaquin] 500 mg PO DAILY #3 tab 01/31/19 Additional Instructions: the patient's 78-year-old female presenting secondary to feeling of tremulousness and a mild headache. The patient also has a pharyngitis that is likely viral and what appears to be a small urinary tract infection on top of some mild dehydration and hyperglycemia. The patient was given a liter of IV fluids which will hopefully help with the headache eventually and with the dehydration of course. She was given a dose of Levaquin and will be written for 3 more days of low-dose Levaquin for the urinary tract infection. The viral pharyngitis Will have to run its course. The viral infection and the urinary tract infection as well as the mild acute on chronic renal insufficiency likely contributing to the tremulousness. The patient needs to keep herself well hydrated and monitor her blood sugars a little more closely. ER warnings were given for any acute worsening. Follow up with primary care doctor next week.
[2019-01-31] MEDS ORDERED: ALPRAZolam 0.5 MG TAB ONE (12:25)
[2019-01-31] MEDS ORDERED: ALPRAZolam 0.25 MG TAB PO ONE (12:25)
--- NOTE | 2019-01-31 12:51 | RAD ---
EXAM DESCRIPTION: Chest,1 View CLINICAL HISTORY: denny, tremors COMPARISON: 08 September 2018 TECHNIQUE: AP portable chest FINDINGS: A poor inspiratory effect is noted. A pacemaker with atrial and ventricular leads is seen. A background of chronic interstitial lung disease is noted. A vascular stent is observed in the left axilla. IMPRESSION: A poor inspiratory effect and chronic interstitial lung disease are observed. I see no significant interval change from the prior exam. Electronically signed by: Darrel Page MD 01/31/2019 12:48 PM CDT
[2019-01-31] MEDS ORDERED: INSULIN, REG.(HUMAN) 100 U/ML VIAL IV ONE (13:28)
[2019-01-31] MEDS ORDERED: SODIUM CHLORIDE 0.9% 1000ML 1,000 ML IVS ONE (13:28)
[2019-01-31] MEDS ORDERED: levoFLOXacin 500 MG TAB PO ONE (16:38)
[2019-01-31 17:23] VITALS: BP 129/53; O2SAT 98
== END 2019-01-31 17:22 | disposition home or self-care (01) ==
LOC: ER 11:52
DX: N30.00 Acute cystitis without hematuria (principal); N17.9 Acute kidney failure, unspecified; N18.4 Chronic kidney disease, stage 4 (severe); J02.9 Acute pharyngitis, unspecified; E86.0 Dehydration; R25.1 Tremor, unspecified; E87.2 Acidosis; F03.90 Unspecified dementia, unspecified severity, without behavioral disturbance, psychotic disturbance, mood disturbance, and anxiety; I48.91 Unspecified atrial fibrillation; I12.9 Hypertensive chronic kidney disease with stage 1 through stage 4 chronic kidney disease, or unspecified chronic kidney disease; E11.22 Type 2 diabetes mellitus with diabetic chronic kidney disease; E03.9 Hypothyroidism, unspecified; K21.9 Gastro-esophageal reflux disease without esophagitis; Z95.0 Presence of cardiac pacemaker; Z85.42 Personal history of malignant neoplasm of other parts of uterus; Z85.3 Personal history of malignant neoplasm of breast; Z85.43 Personal history of malignant neoplasm of ovary; Z99.2 Dependence on renal dialysis; Z79.4 Long term (current) use of insulin; Z79.899 Other long term (current) drug therapy
CPT/HCPCS: 71045; 80053; 81001; 82550; 82553; 83605; 83735; 83880; 84443; 84484; 85025; 87077; 87086; 87186; 93005; J7030

== ENCOUNTER 2019-03-21 16:25 | Emergency (ER) | payer OTHER ==
[2019-03-21 16:43] VITALS: TEMP 98.1
[2019-03-21] MEDS ORDERED: IPRATROPIUM/ALBUTEROL 3 ML VIAL NEB ONE (16:43)
--- NOTE | 2019-03-21 16:46 | ED.PDOC ---
History of Present Illness - General Chief Complaint: Respiratory Problem Stated Complaint: lungs burning Time Seen by Provider: 03/21/19 16:42 Source: patient Exam Limitations: no limitations - History of Present Illness Comments: patient comes in today with 1 week history of worsening cough and congestion. Patient states it started off like a sinus infection that has gone down to her lungs and now her lungs "feel like they're burning". Patient has no past history of asthma or emphysema. Patient does have chronic renal failure and is currently on dialysis. Patient also has diabetes and hypertension. Patient denies any past history of smoking. She's had no fever or chills but lots of nasal congestion. Timing/Duration: week, getting worse Cough Quality/Degree: productive cough Possible Cause: no prior episodes Improving Factors: nothing Worsening Factors: movement Associated Symptoms: facial pain, nasal congestion, nasal drainage Respiratory Risk Factors: no cause identified Allergies/Adverse Reactions: Allergies NO KNOWN ALLERGY Allergy (Verified 03/11/19 16:41) Home Medications: Ambulatory Orders Acetaminophen [Tylenol] 650 mg PO Q6H PRN 07/05/16 Citalopram Hydrobromide [Celexa] 20 mg PO BEDTIME 07/05/16 Clonidine HCl 0.1 mg PO Q8H PRN 07/05/16 Cyclobenzaprine HCl [Flexeril] 5 mg PO BID 07/05/16 Diphenhydramine HCl 25 mg PO Q4H PRN 07/05/16 Docusate Sodium 100 mg PO BID 07/05/16 Insulin Detemir [Levemir Pen] 55 unit SUBCU BID 07/05/16 Multiple Vitamin [Multi Vitamin Daily] 1 tab PO DAILY 07/05/16 Ondansetron [Ondansetron Odt] 4 mg PO Q4HR PRN 07/05/16 Zolpidem Tartrate 5 mg PO BEDTIME 07/05/16 Cyanocobalamin [Vitamin B12] 1,000 mcg IM MONTHLY 07/06/16 Polyethylene Glycol 3350 [Miralax] 17 gm PO DAILY PRN 07/06/16 Sevelamer Carbonate [Renvela] 2,400 mg PO TIDFD 10/24/16 Liraglutide [Victoza] 18 mg SC DAILY 09/19/17 Memantine HCl [Namenda Xr] 28 mg PO DAILY 09/19/17 Glucagon HCl (Diagnostic) [Glucagon] 1 mg IJ PRN PRN 10/02/17 Insulin Lispro [Humalog] 3 unit SUBCU AC 10/02/17 Pantoprazole Sodium 40 mg PO DAILY 11/03/17 Apixaban [Eliquis] 2.5 mg PO BID 09/07/18 Atorvastatin Calcium [Lipitor] 10 mg PO BEDTIME 09/07/18 Donepezil Hydrochloride [Donepezil HCl] 23 mg PO BEDTIME 09/07/18 Doxepin HCl 50 mg PO BEDTIME 09/07/18 Pregabalin [Lyrica] 100 mg PO BID 09/07/18 Acetaminophen W/ Codeine [Tylenol W/ CODEINE #3] 1 ea PO Q6H PRN 01/02/19 Albuterol Sulfate Nebs [Proventil Nebs] 2.5 mg NEB Q6H 01/02/19 Ergocalciferol [Drisdol] 50,000 unit PO DAILY 01/02/19 Montelukast [Singulair] 10 mg PO BEDTIME 01/02/19 Primidone 50 mg PO DAILY 01/31/19 Triamcinolone Acetonide (Topic [Triamcinolone Acetonide] 0.025 % EX BID 01/31/19 levoFLOXacin [Levaquin] 500 mg PO DAILY #3 tab 01/31/19 Azithromycin [Zithromax Z-Lino] 250 mg PO DAILY #6 tab 03/21/19 Review of Systems - Review of Systems Constitutional: States: malaise. Denies: chills, fever EENTM: States: nose congestion. Denies: eye pain, ear pain, throat pain Respiratory: States: cough, short of breath. Denies: wheezing Cardiology: States: no symptoms reported. Denies: chest pain, palpitations Gastrointestinal/Abdominal: States: no symptoms reported. Denies: abdominal pain, nausea, vomiting Musculoskeletal: States: no symptoms reported Skin: States: no symptoms reported Past Medical History (General) - Patient Medical History Hx Seizures: No Hx Stroke: No Hx Dementia: Yes Hx Asthma: No Hx of COPD: No Hx Cardiac Disorders: Yes - A fib Hx Congestive Heart Failure: No Hx Pacemaker: Yes Hx Hypertension: Yes Hx Thyroid Disease: Yes - Hypo Hx Diabetes: Yes - type 2 Hx Gastroesophageal Reflux: Yes Hx Renal Disease: Yes - ESRD - Dialysis MWF Hx Cancer: Yes - Uterine,Ovarian,Breast Hx of HIV: No Hx Hepatitis C: No Hx MRSA: No - Vaccination History Hx Tetanus, Diphtheria Vaccination: Yes Hx Influenza Vaccination: Yes Hx Pneumococcal Vaccination: Yes - Social History Hx Tobacco Use: No Hx Chewing Tobacco Use: No Hx Alcohol Use: No Hx Substance Use: No Hx Substance Use Treatment: No Hx Depression: No Hx Physical Abuse: No Hx Emotional Abuse: No Hx Suspected Abuse: No - Activities of Daily Living Care Home/Assisted Living (if applicable):: [facility] - Female History Patient : No Family Medical History - Family History Mother Family History: Unknown Hx Family Stroke: Yes - several family members Hx Family Diabetes: Yes - several family members Physical Exam - Physical Exam General Appearance: Alert, Comfortable Eye Exam: bilateral normal ENT Exam: normal ENT inspection, hearing grossly normal, TMs normal, pharynx normal, nasal congestion, nasal drainage Neck: non-tender, full range of motion, supple, normal inspection Respiratory: no respiratory distress, rhonchi, wheezing Cardiovascular/Chest: normal peripheral pulses, regular rate, rhythm, no edema, no murmur Gastrointestinal/Abdominal: normal bowel sounds, non tender, soft Neurologic: alert, oriented x 3 Skin Exam: normal color Lymphatic: no adenopathy Progress - Progress Progress: 03/21/19 18:24 patient feels better and lungs are clear after treatment. lactic acid is high but patient is a dialysis patient. She is clinically good and we will have her have close follow up. - Results/Orders Results/Orders: Patient Name: RADHA TAYLOR Gender: Female Date of : 1940 Referring Physician: JOAQUIM RUSSELL Organization: [facility] Accession Number: [id number] Requested Date: March 21, 2019 16:43 Report Status: Final Requested Procedure: 1 Procedure Description: Chest,2 Views Modality: CR Findings Reporting MD: Darrel Sanabria Fellow MD: Not available Dictation Time: Meter Readers Supervisor: Not available Bronze Chaser Date: EXAM DESCRIPTION: Chest,2 Views CLINICAL HISTORY: cough, shortness of breath COMPARISON: Chest radiograph dated January 31, 2019 TECHNIQUE: Frontal and lateral views of the chest FINDINGS: Dual-lead right subclavian approach cardiac pacemaker in stable position. Vascular stent is partially imaged in the left axillary region. Calcific atherosclerosis of the thoracic aorta. Cardiac silhouette shows upper limits of normal heart size. Pulmonary vascularity is within normal limits. Redemonstration of background of chronic interstitial lung disease/scarring. Otherwise, lungs show no confluent infiltrates. Stable elevation of the right hemidiaphragm. Costophrenic angles are sharp. No pneumothorax. Degenerative changes of thoracic spine. Kyphoplasty changes noted of a lumbar vertebra. IMPRESSION: 1. No acute cardiopulmonary process. 2. Background of chronic interstitial lung disease/scarring, stable. 3. Other findings as above. \\ 03/21/19 16:43 EKG Assessment ONCE 03/21/19 16:45 EKG STAT 03/21/19 18:24 [id number] SODIUM [Rocephin] 2 gm IM ONCE ONE Laboratory Results WBC 6.5 K/mm3 (4.8-10.8) 03/21/19 17:18 RBC 3.28 M/mm3 (4.20-5.40) L 03/21/19 17:18 Hgb 11.9 gm/dL (12.0-16.0) L 03/21/19 17:18 Hct 35.6 % (36.0-47.0) L 03/21/19 17:18 MCV 108.4 fl (81.0-99.0) H 03/21/19 17:18 MCH 36.2 pg (27.0-31.0) H 03/21/19 17:18 MCHC 33.4 g/dL (33.0-37.0) 03/21/19 17:18 RDW 16.3 % (11.5-14.5) H 03/21/19 17:18 Plt Count 120 K/mm3 (130-400) L 03/21/19 17:18 MPV 10.3 fl (7.40-10.4) 03/21/19 17:18 Absolute Neuts (auto) 3.60 K/uL (1.8-6.8) 03/21/19 17:18 Absolute Lymphs (auto) 2.20 K/uL (1.0-3.4) 03/21/19 17:18 Absolute Monos (auto) 0.40 K/uL (0.2-0.8) 03/21/19 17:18 Absolute Eos (auto) 0.10 K/uL (0.0-0.4) 03/21/19 17:18 Absolute Basos (auto) 0.10 K/uL (0.0-0.1) 03/21/19 17:18 Neutrophils % 56.1 % (42.0-78.0) 03/21/19 17:18 Lymphocytes % 34.2 % (20.0-50.0) 03/21/19 17:18 Monocytes % 6.7 % (2.0-9.0) 03/21/19 17:18 Eosinophils % 2.1 % (1.0-5.0) 03/21/19 17:18 Basophils % 0.9 % (0.0-2.0) 03/21/19 17:18 Normal RBC Morphology 1+rouleaux Plts mac adequate 1+macrocytosis 03/21/19 17:18 Normal RBC Morphology 1+rouleaux Plts mac adequate 1+macrocytosis 03/21/19 17:18 Normal RBC Morphology 1+rouleaux Plts mac adequate 1+macrocytosis 03/21/19 17:18 Sodium 139 mmol/L (135-145) 03/21/19 17:18 Potassium 3.4 mmol/L (3.6-5.0) L 03/21/19 17:18 Chloride 94 mmol/L (101-111) L 03/21/19 17:18 Carbon Dioxide 32 mmol/L (21-31) H 03/21/19 17:18 Anion Gap 16.4 (12-18) 03/21/19 17:18 BUN 14 mg/dL (7-18) 03/21/19 17:18 Creatinine 2.00 mg/dL (0.6-1.3) H 03/21/19 17:18 BUN/Creatinine Ratio 7.0 (10-20) L 03/21/19 17:18 Random Glucose 216 mg/dL (70-105) H 03/21/19 17:18 Serum Osmolality 284.5 mOsm/L (275-295) 03/21/19 17:18 Lactic Acid 3.3 mmol/L (0.5-2.2) H* 03/21/19 17:18 Calcium 8.2 mg/dL (8.4-10.2) L 03/21/19 17:18 Total Bilirubin 0.6 mg/dL (0.2-1.0) 03/21/19 17:18 AST 31 IU/L (10-42) 03/21/19 17:18 ALT 23 IU/L (10-60) 03/21/19 17:18 Alkaline Phosphatase 129 IU/L (42-121) H 03/21/19 17:18 Serum Total Protein 7.6 gm/dL (6.4-8.2) 03/21/19 17:18 Albumin 3.7 g/dl (3.2-5.5) 03/21/19 17:18 Globulin 3.9 gm/dL (2.3-3.5) H 03/21/19 17:18 Albumin/Globulin Ratio 0.9 (1.1-1.9) L 03/21/19 17:18 Departure - Departure Clinical Impression: Bronchitis Disposition: Discharge to Home or Self Care Condition: Fair Departure Forms: ED Discharge - Pt. Copy, Patient Portal Self Enrollment Referrals: Darrel Marroquin III, MD [Primary Care Provider] - 1-2 Weeks Prescriptions: Azithromycin [Zithromax Z-Lino] 250 mg PO DAILY #6 tab Home Medications: Ambulatory Orders Acetaminophen [Tylenol] 650 mg PO Q6H PRN 07/05/16 Citalopram Hydrobromide [Celexa] 20 mg PO BEDTIME 07/05/16 Clonidine HCl 0.1 mg PO Q8H PRN 07/05/16 Cyclobenzaprine HCl [Flexeril] 5 mg PO BID 07/05/16 Diphenhydramine HCl 25 mg PO Q4H PRN 07/05/16 Docusate Sodium 100 mg PO BID 07/05/16 Insulin Detemir [Levemir Pen] 55 unit SUBCU BID 07/05/16 Multiple Vitamin [Multi Vitamin Daily] 1 tab PO DAILY 07/05/16 Ondansetron [Ondansetron Odt] 4 mg PO Q4HR PRN 07/05/16 Zolpidem Tartrate 5 mg PO BEDTIME 07/05/16 Cyanocobalamin [Vitamin B12] 1,000 mcg IM MONTHLY 07/06/16 Polyethylene Glycol 3350 [Miralax] 17 gm PO DAILY PRN 07/06/16 Sevelamer Carbonate [Renvela] 2,400 mg PO TIDFD 10/24/16 Liraglutide [Victoza] 18 mg SC DAILY 09/19/17 Memantine HCl [Namenda Xr] 28 mg PO DAILY 09/19/17 Glucagon HCl (Diagnostic) [Glucagon] 1 mg IJ PRN PRN 10/02/17 Insulin Lispro [Humalog] 3 unit SUBCU AC 10/02/17 Pantoprazole Sodium 40 mg PO DAILY 11/03/17 Apixaban [Eliquis] 2.5 mg PO BID 09/07/18 Atorvastatin Calcium [Lipitor] 10 mg PO BEDTIME 09/07/18 Donepezil Hydrochloride [Donepezil HCl] 23 mg PO BEDTIME 09/07/18 Doxepin HCl 50 mg PO BEDTIME 09/07/18 Pregabalin [Lyrica] 100 mg PO BID 09/07/18 Acetaminophen W/ Codeine [Tylenol W/ CODEINE #3] 1 ea PO Q6H PRN 01/02/19 Albuterol Sulfate Nebs [Proventil Nebs] 2.5 mg NEB Q6H 01/02/19 Ergocalciferol [Drisdol] 50,000 unit PO DAILY 01/02/19 Montelukast [Singulair] 10 mg PO BEDTIME 01/02/19 Primidone 50 mg PO DAILY 01/31/19 Triamcinolone Acetonide (Topic [Triamcinolone Acetonide] 0.025 % EX BID 01/31/19 levoFLOXacin [Levaquin] 500 mg PO DAILY #3 tab 01/31/19 Azithromycin [Zithromax Z-Lino] 250 mg PO DAILY #6 tab 03/21/19 Additional Instructions: return to ER for shortness of breath or worsening of symptoms. follow up with PCP in 2-3 days
[2019-03-21 17:27] VITALS: BP 143/70; O2SAT 94
--- NOTE | 2019-03-21 17:29 | RAD ---
EXAM DESCRIPTION: Chest,2 Views CLINICAL HISTORY: cough, shortness of breath COMPARISON: Chest radiograph dated January 31, 2019 TECHNIQUE: Frontal and lateral views of the chest FINDINGS: Dual-lead right subclavian approach cardiac pacemaker in stable position. Vascular stent is partially imaged in the left axillary region. Calcific atherosclerosis of the thoracic aorta. Cardiac silhouette shows upper limits of normal heart size. Pulmonary vascularity is within normal limits. Redemonstration of background of chronic interstitial lung disease/scarring. Otherwise, lungs show no confluent infiltrates. Stable elevation of the right hemidiaphragm. Costophrenic angles are sharp. No pneumothorax. Degenerative changes of thoracic spine. Kyphoplasty changes noted of a lumbar vertebra. IMPRESSION: 1. No acute cardiopulmonary process. 2. Background of chronic interstitial lung disease/scarring, stable. 3. Other findings as above. Electronically signed by: Darrel Sanabria MD 03/21/2019 5:26 PM CDT
[2019-03-21] MEDS ORDERED: LIDOCAINE 1% 10 ML VIAL INJ ONE (18:46)
== END 2019-03-21 19:35 | disposition home or self-care (01) ==
LOC: ER 16:25
DX: J40 Bronchitis, not specified as acute or chronic (principal); F03.90 Unspecified dementia, unspecified severity, without behavioral disturbance, psychotic disturbance, mood disturbance, and anxiety; I48.91 Unspecified atrial fibrillation; E03.9 Hypothyroidism, unspecified; K21.9 Gastro-esophageal reflux disease without esophagitis; I12.0 Hypertensive chronic kidney disease with stage 5 chronic kidney disease or end stage renal disease; E11.22 Type 2 diabetes mellitus with diabetic chronic kidney disease; N18.6 End stage renal disease; Z99.2 Dependence on renal dialysis; Z95.0 Presence of cardiac pacemaker; Z85.3 Personal history of malignant neoplasm of breast; Z85.42 Personal history of malignant neoplasm of other parts of uterus; Z85.43 Personal history of malignant neoplasm of ovary
CPT/HCPCS: 36415; 71046; 80053; 83605; 85025; 93005; 94640; 94760; J0696; J7620

== ENCOUNTER 2019-06-02 08:33 | Emergency (ER) | payer OTHER ==
--- NOTE | 2019-06-02 09:17 | RAD ---
PROVIDED CLINICAL HISTORY/REASON FOR EXAM: sob Findings: Number of images: One Location: Frontal chest Comparison March 21, 2019. Right chest wall cardiac conduction device. Cardiomegaly. Increased pulmonary vascular congestion. No pneumothorax. Probable small left pleural effusion. Increased interstitial opacities bilaterally. Vascular stent overlying the left chest wall. No acute osseous abnormality. Atherosclerotic plaque in the thoracic aorta. IMPRESSION: 1. Cardiomegaly with increased pulmonary vascular congestion and a small left pleural effusion. 2. Diffusely increased interstitial opacities bilaterally which may reflect pulmonary edema and/or pneumonia. Electronically signed by: Vitor Christy MD 06/02/2019 9:16 AM CDT
[2019-06-02] MEDS ORDERED: cefTRIAXone SODIUM 1 GM in SODIUM CHL 0.9% 50ML MIN-BAG+ 50 ML IVPB ONE (09:45)
[2019-06-02] MEDS ORDERED: FUROSEMIDE INJ 20 MG/2 ML VIAL IV ONE (09:45)
[2019-06-02] MEDS ORDERED: AZITHROMYCIN IV 500 MG in SODIUM CHLORIDE 0.9% 250ML 250 ML IVPB ONE (09:45)
--- NOTE | 2019-06-02 10:01 | ED.PDOC ---
History of Present Illness - General Chief Complaint: General Stated Complaint: SOB, nasal congestion Time Seen by Provider: 06/02/19 08:39 Source: patient Exam Limitations: no limitations - History of Present Illness Initial Comments: the patient is 79-year-old female presenting to the emergency room secondary to 2 days of progressive shortness of breath with a productive sputum. No fever. No chest pain. The patient does feel a little bit better after breathing treatments. She does desaturate down to 82% while lying back. Even with sitting up she desaturates down to around 86% when she starts to doze off. She does require a couple liters of oxygen to keep this from happening. she does not normally require oxygen. The patient does have bibasilar rales. The patient is a dialysis patient and did receive dialysis on Sunday. She sees Dr. Bello. She has had a history of CHF and pulmonary edema in the past as well as atrial fibrillation and is on eliquis. She is currently in normal sinus rhythm with frequent PACs and occasional PVCs. The patient is alert and at her baseline mental status. She does have some long-standing dementia. She is pleasant and cooperative. Timing/Duration: other - 48 hours Severity: moderate Improving Factors: nothing Worsening Factors: nothing Associated Symptoms: cough, malaise, shortness of breath Allergies/Adverse Reactions: Allergies NO KNOWN ALLERGY Allergy (Verified 06/02/19 09:05) Home Medications: Ambulatory Orders Acetaminophen [Tylenol] 650 mg PO Q6H PRN 07/05/16 Citalopram Hydrobromide [Celexa] 20 mg PO BEDTIME 07/05/16 Clonidine HCl 0.1 mg PO Q8H PRN 07/05/16 Cyclobenzaprine HCl [Flexeril] 5 mg PO BID 07/05/16 Diphenhydramine HCl 25 mg PO Q4H PRN 07/05/16 Docusate Sodium 100 mg PO BID 07/05/16 Insulin Detemir [Levemir Pen] 55 unit SUBCU BID 07/05/16 Multiple Vitamin [Multi Vitamin Daily] 1 tab PO DAILY 07/05/16 Ondansetron [Ondansetron Odt] 4 mg PO Q4HR PRN 07/05/16 Zolpidem Tartrate 5 mg PO BEDTIME 07/05/16 Cyanocobalamin [Vitamin B12] 1,000 mcg IM MONTHLY 07/06/16 Polyethylene Glycol 3350 [Miralax] 17 gm PO DAILY PRN 07/06/16 Sevelamer Carbonate [Renvela] 2,400 mg PO TIDFD 10/24/16 Liraglutide [Victoza] 18 mg SC DAILY 09/19/17 Memantine HCl [Namenda Xr] 28 mg PO DAILY 09/19/17 Glucagon HCl (Diagnostic) [Glucagon] 1 mg IJ PRN PRN 10/02/17 Insulin Lispro [Humalog] 3 unit SUBCU AC 10/02/17 Pantoprazole Sodium 40 mg PO DAILY 11/03/17 Apixaban [Eliquis] 2.5 mg PO BID 09/07/18 Atorvastatin Calcium [Lipitor] 10 mg PO BEDTIME 09/07/18 Donepezil Hydrochloride [Donepezil HCl] 23 mg PO BEDTIME 09/07/18 Doxepin HCl 50 mg PO BEDTIME 09/07/18 Pregabalin [Lyrica] 100 mg PO BID 09/07/18 Acetaminophen W/ Codeine [Tylenol W/ CODEINE #3] 1 ea PO Q6H PRN 01/02/19 Albuterol Sulfate Nebs [Proventil Nebs] 2.5 mg NEB Q6H 01/02/19 Ergocalciferol [Drisdol] 50,000 unit PO DAILY 01/02/19 Montelukast [Singulair] 10 mg PO BEDTIME 01/02/19 Primidone 50 mg PO DAILY 01/31/19 Triamcinolone Acetonide (Topic [Triamcinolone Acetonide] 0.025 % EX BID 01/31/19 levoFLOXacin [Levaquin] 500 mg PO DAILY #3 tab 01/31/19 Azithromycin [Zithromax Z-Ilno] 250 mg PO DAILY #6 tab 03/21/19 Review of Systems - Review of Systems Review of Systems: 06/02/19 10:01 review of systems is for new symptoms only Constitutional: States: malaise EENTM: States: nose congestion Respiratory: States: cough, short of breath Cardiology: States: no symptoms reported Gastrointestinal/Abdominal: States: no symptoms reported Genitourinary: States: no symptoms reported Musculoskeletal: States: no symptoms reported Skin: States: no symptoms reported Neurological: States: no symptoms reported Endocrine: States: no symptoms reported All other Systems: No Change from Baseline Past Medical History (General) - Patient Medical History Hx Seizures: No Hx Stroke: No Hx Dementia: Yes Hx Asthma: No Hx of COPD: No Hx Cardiac Disorders: Yes - A fib Hx Congestive Heart Failure: No Hx Pacemaker: Yes Hx Hypertension: No Hx Thyroid Disease: Yes - Hypo Hx Diabetes: Yes Hx Gastroesophageal Reflux: Yes Hx Renal Disease: Yes - ESRD - Dialysis MWF Hx Cancer: Yes - Uterine,Ovarian,Breast Hx of HIV: No Hx Hepatitis C: No Hx MRSA: No Surgical History: appendectomy, Hysterectomy, other - Vaccination History Hx Tetanus, Diphtheria Vaccination: Yes Hx Influenza Vaccination: Yes Hx Pneumococcal Vaccination: Yes Immunizations Up to Date: Yes - Social History Hx Tobacco Use: No Hx Chewing Tobacco Use: No Hx Alcohol Use: No Hx Substance Use: No Hx Substance Use Treatment: No Hx Depression: No Hx Physical Abuse: No Hx Emotional Abuse: No Hx Suspected Abuse: No - Activities of Daily Living Intermediate/Assisted Living (if applicable):: [facility] - Female History Patient is a Female of Child Bearing Age (10 -59 yrs old): No Patient : No Family Medical History - Family History Mother Family History: Unknown Living Status: Hx Family Stroke: Yes - several family members Hx Family Diabetes: Yes - several family members Physical Exam - Physical Exam General Appearance: Alert, Comfortable, No apparent distress Eye Exam: bilateral normal Ears, Nose, Throat: hearing grossly normal, normal ENT inspection Neck: full range of motion, supple Respiratory: other - mild to moderate increased work of breathing. Rattling cough. Bibasilar rales. 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 The patient appears to be suffering from a CHF exacerbation likely triggered by a small left lower lobe pneumonia. Blood culture has been performed. We will collect a sputum culture. She has received a dose of IV Lasix however the justino ent is in need of dialysis. Given her oxygen dependency at this point the patient is going to be transferred to [facility] for dialysis and continued care. She has been started on Rocephin and azithromycin. Transferred to specialty care. Acceptance at receiving facility is appreciated. - Results/Orders Results/Orders: EKG shows normal sinus rhythm at 89 bpm with occasional PACs. Occasional PVCs are noted on telemetry. Mild left axis deviation. Right bundle branch block. Inverted T wave in lead 3. This is consistent with previous EKGs. No definitive ST segment or T-wave changes otherwise indicative of acute ischemia. QT interval is technically prolonged. Laboratory Results - last 24 hr 06/02/19 06/02/19 06/02/19 09:07 09:07 09:07 WBC 6.5 RBC 2.80 L Hgb 10.2 L Hct 30.5 L MCV 109.0 H MCH 36.4 H MCHC 33.4 RDW 16.9 H Plt Count 141 MPV 8.0 Absolute Neuts (auto) 4.50 Absolute Lymphs (auto) 1.40 Absolute Monos (auto) 0.40 Absolute Eos (auto) 0.10 Absolute Basos (auto) 0.10 Neutrophils % 70.1 Lymphocytes % 21.3 Monocytes % 5.7 Eosinophils % 2.1 Basophils % 0.8 Sodium 141 Potassium 3.4 L Chloride 99 L Carbon Dioxide 28 Anion Gap 17.4 BUN 35 H Creatinine 3.18 H BUN/Creatinine Ratio 11.0 Random Glucose 180 H Serum Osmolality 293.8 Lactic Acid 1.8 Calcium 8.1 L Magnesium 2.0 Total Bilirubin 0.9 AST 29 ALT 20 Alkaline Phosphatase 90 Creatine Kinase 37 CK-MB (CK-2) 1.4 CK-MB (CK-2) % Not Reportable Troponin I 0.04 B-Natriuretic Peptide 1010.0 H* Serum Total Protein 7.3 Albumin 3.8 Globulin 3.5 Albumin/Globulin Ratio 1.1 Departure - Departure Clinical Impression: snf pneumonia, End stage renal disease CHF exacerbation Qualifiers: Heart failure type: unspecified Qualified Code(s): I50.9 - Heart failure, u nspecified Disposition: Transfer to Hospital Departure Forms: ED Discharge - Pt. Copy, Patient Portal Self Enrollment Referrals: Darrel Marroquin III, MD [Primary Care Provider] - 1-2 Weeks Home Medications: Ambulatory Orders Acetaminophen [Tylenol] 650 mg PO Q6H PRN 07/05/16 Citalopram Hydrobromide [Celexa] 20 mg PO BEDTIME 07/05/16 Clonidine HCl 0.1 mg PO Q8H PRN 07/05/16 Cyclobenzaprine HCl [Flexeril] 5 mg PO BID 07/05/16 Diphenhydramine HCl 25 mg PO Q4H PRN 07/05/16 Docusate Sodium 100 mg PO BID 07/05/16 Insulin Detemir [Levemir Pen] 55 unit SUBCU BID 07/05/16 Multiple Vitamin [Multi Vitamin Daily] 1 tab PO DAILY 07/05/16 Ondansetron [Ondansetron Odt] 4 mg PO Q4HR PRN 07/05/16 Zolpidem Tartrate 5 mg PO BEDTIME 07/05/16 Cyanocobalamin [Vitamin B12] 1,000 mcg IM MONTHLY 07/06/16 Polyethylene Glycol 3350 [Miralax] 17 gm PO DAILY PRN 07/06/16 Sevelamer Carbonate [Renvela] 2,400 mg PO TIDFD 10/24/16 Liraglutide [Victoza] 18 mg SC DAILY 09/19/17 Memantine HCl [Namenda Xr] 28 mg PO DAILY 09/19/17 Glucagon HCl (Diagnostic) [Glucagon] 1 mg IJ PRN PRN 10/02/17 Insulin Lispro [Humalog] 3 unit SUBCU AC 10/02/17 Pantoprazole Sodium 40 mg PO DAILY 11/03/17 Apixaban [Eliquis] 2.5 mg PO BID 09/07/18 Atorvastatin Calcium [Lipitor] 10 mg PO BEDTIME 09/07/18 Donepezil Hydrochloride [Donepezil HCl] 23 mg PO BEDTIME 09/07/18 Doxepin HCl 50 mg PO BEDTIME 09/07/18 Pregabalin [Lyrica] 100 mg PO BID 09/07/18 Acetaminophen W/ Codeine [Tylenol W/ CODEINE #3] 1 ea PO Q6H PRN 01/02/19 Albuterol Sulfate Nebs [Proventil Nebs] 2.5 mg NEB Q6H 01/02/19 Ergocalciferol [Drisdol] 50,000 unit PO DAILY 01/02/19 Montelukast [Singulair] 10 mg PO BEDTIME 01/02/19 Primidone 50 mg PO DAILY 01/31/19 Triamcinolone Acetonide (Topic [Triamcinolone Acetonide] 0.025 % EX BID 01/31/19 levoFLOXacin [Levaquin] 500 mg PO DAILY #3 tab 01/31/19 Azithromycin [Zithromax Z-Lino] 250 mg PO DAILY #6 tab 03/21/19 Transfer to Outside Facility - Transfer Information Accepting Provider:: dr lopez Accepting Facility: [facility] Reason for Transfer: required specialist not available
[2019-06-02] MEDS ORDERED: SODIUM CHL 0.9% 50ML MIN-BAG+ 50 ML IVPB ONE (10:19)
[2019-06-02] MEDS ORDERED: cefTRIAXone SODIUM 1 GM VIAL ONE (10:19)
[2019-06-02 10:42] VITALS: BP 109/52; TEMP 97.4; O2SAT 98
[2019-06-02] MEDS ORDERED: SODIUM CHLORIDE 0.9% 250ML 250 ML ONE (10:54)
[2019-06-02] MEDS ORDERED: AZITHROMYCIN IV 500 MG VIAL IVPB ONE (10:54)
== END 2019-06-02 11:19 | disposition short-term general hospital (02) ==
LOC: ER 08:33
DX: J18.9 Pneumonia, unspecified organism (principal); I50.9 Heart failure, unspecified; N18.6 End stage renal disease; E11.22 Type 2 diabetes mellitus with diabetic chronic kidney disease; F03.90 Unspecified dementia, unspecified severity, without behavioral disturbance, psychotic disturbance, mood disturbance, and anxiety; I48.91 Unspecified atrial fibrillation; E07.9 Disorder of thyroid, unspecified; K21.9 Gastro-esophageal reflux disease without esophagitis; Z99.2 Dependence on renal dialysis; Z95.0 Presence of cardiac pacemaker; Z85.3 Personal history of malignant neoplasm of breast; Z85.42 Personal history of malignant neoplasm of other parts of uterus; Z85.43 Personal history of malignant neoplasm of ovary; Z79.4 Long term (current) use of insulin; Z79.899 Other long term (current) drug therapy
CPT/HCPCS: 71045; 80053; 82550; 82553; 83605; 83735; 83880; 84484; 85025; 87040; 87502; 93005; J0456; J0696; J1940; J7050

== ENCOUNTER 2019-06-16 08:07 | Emergency (ER) | payer OTHER ==
[2019-06-16] MEDS ORDERED: ALBUTEROL SULFATE NEBS (ED DISPENSE) 2.5 MG/3 ML VIAL NEB PRN (08:29)
[2019-06-16] MEDS ORDERED: IPRATROPIUM BROMIDE NEBS 0.5 MG/2.5 ML VIAL NEB ONE (08:30)
[2019-06-16] MEDS ORDERED: cefTRIAXone SODIUM 1 GM in SODIUM CHL 0.9% 50ML MIN-BAG+ 50 ML IVPB ONE (08:32)
[2019-06-16] MEDS ORDERED: SODIUM CHLORIDE 0.9% (FLUSH) 10 ML SYG IV PRN (08:33)
[2019-06-16 08:50] VITALS: TEMP 96.4
[2019-06-16] MEDS ORDERED: SODIUM CHL 0.9% 50ML MIN-BAG+ 50 ML IVPB ONE (08:53)
[2019-06-16] MEDS ORDERED: cefTRIAXone SODIUM 1 GM VIAL ONE (08:53)
--- NOTE | 2019-06-16 08:59 | RAD ---
EXAM: XR Chest, 1 View CLINICAL HISTORY: SOB TECHNIQUE: Frontal view of the chest. COMPARISON: 06/02/2019. FINDINGS: Limitations: None. Lungs: Interstitial changes present which could be acute and/or chronic increased superimposed airspace disease. Pleural space: Unremarkable. No pneumothorax. Heart: Stable cardiomegaly. Mediastinum: Unremarkable. Bones/joints: Unremarkable. Tubes, lines and devices: Stable cardiac pacing device. IMPRESSION: Interstitial changes may represent an acute interstitial process such as pulmonary edema or bronchitis. There is increased superimposed pneumonia. Electronically signed by: Diane Mccormick MD 06/16/2019 8:58 AM CDT
--- NOTE | 2019-06-16 10:02 | ED.PDOC ---
History of Present Illness - General Chief Complaint: Respiratory Problem Stated Complaint: SOB AND RECENT DX OF PNEUMONIA Time Seen by Provider: 06/16/19 08:24 Additional Information: Pt w cc of SOB onset yesterday. Pt is in a NH, recently d/c from [facility] last week for PNA. Pt by report started on levaquin yesterday at the OR. Pt is on HD, dialyses MWF, is due today. Pt w frequent congested cough, SOB, difficulty breathing. No CP or fever. - History of Present Illness Allergies/Adverse Reactions: Allergies NO KNOWN ALLERGY Allergy (Verified 06/16/19 08:50) Home Medications: Ambulatory Orders RX: Acetaminophen [Tylenol] 650 mg PO Q6H PRN 07/05/16 RX: Citalopram Hydrobromide [Celexa] 20 mg PO BEDTIME 07/05/16 RX: Cyclobenzaprine HCl [Flexeril] 5 mg PO BID 07/05/16 RX: Diphenhydramine HCl 25 mg PO Q4H PRN 07/05/16 RX: Docusate Sodium 100 mg PO BID 07/05/16 RX: Insulin Detemir [Levemir Pen] 20 unit SUBCU BID 07/05/16 RX: Multiple Vitamin [Multi Vitamin Daily] 1 tab PO DAILY 07/05/16 RX: Ondansetron [Ondansetron Odt] 4 mg PO Q4HR PRN 07/05/16 RX: Cyanocobalamin [Vitamin B12] 1,000 mcg IM MONTHLY 07/06/16 RX: Polyethylene Glycol 3350 [Miralax] 17 gm PO DAILY PRN 07/06/16 RX: Sevelamer Carbonate [Renvela] 2,400 mg PO TIDFD 10/24/16 RX: Liraglutide [Victoza] 0.6 units SC DAILY 09/19/17 RX: Memantine HCl [Namenda Xr] 28 mg PO DAILY 09/19/17 RX: Glucagon HCl (Diagnostic) [Glucagon] 1 mg IJ PRN PRN 10/02/17 RX: Pantoprazole Sodium 40 mg PO DAILY 11/03/17 Apixaban [Eliquis] 2.5 mg PO BID 09/07/18 RX: Atorvastatin Calcium [Lipitor] 10 mg PO BEDTIME 09/07/18 RX: Donepezil Hydrochloride [Donepezil HCl] 23 mg PO BEDTIME 09/07/18 RX: Doxepin HCl 50 mg PO BEDTIME 09/07/18 Acetaminophen W/ Codeine [Tylenol W/ CODEINE #3] 1 ea PO Q6H PRN 01/02/19 Ergocalciferol [Drisdol] 50,000 unit PO DAILY 01/02/19 Montelukast [Singulair] 10 mg PO BEDTIME 01/02/19 RX: Albuterol Sulfate Nebs [Proventil Nebs] 2.5 mg NEB Q6H 01/02/19 Triamcinolone Acetonide (Topic [Triamcinolone Acetonide] 0.025 % EX BID 01/31/19 levoFLOXacin [Levaquin] 500 mg PO DAILY #3 tab 01/31/19 Apoaequorin [Prevagen] 10 mg PO DAILY 06/16/19 Guaifenesin [Guaifenesin ER] 600 mg PO BID 06/16/19 Human Insulin Aspart [Novolog] 3 unit SUBCU AC 06/16/19 Loratadine [Claritin] 10 mg PO DAILY 06/16/19 RX: Melatonin 3 mg PO BEDTIME 06/16/19 Review of Systems - Review of Systems Constitutional: Denies: diaphoresis, fever EENTM: States: no symptoms reported Respiratory: States: cough, short of breath, wheezing Cardiology: States: no symptoms reported. Denies: chest pain Gastrointestinal/Abdominal: States: no symptoms reported. Denies: nausea, vomiting Genitourinary: States: no symptoms reported. Denies: dysuria Musculoskeletal: States: no symptoms reported Skin: States: no symptoms reported Neurological: States: no symptoms reported. Denies: headache, weakness Endocrine: States: no symptoms reported Hematologic/Lymphatic: States: no symptoms reported Past Medical History (General) - Patient Medical History Hx Seizures: No Hx Stroke: No Hx Dementia: Yes Hx Asthma: No Hx of COPD: No Hx Cardiac Disorders: Yes - A fib Hx Congestive Heart Failure: No Hx Pacemaker: Yes Hx Hypertension: No Hx Thyroid Disease: Yes - Hypo Hx Diabetes: Yes Hx Gastroesophageal Reflux: Yes Hx Renal Disease: Yes - ESRD - Dialysis MWF Hx Cancer: Yes - Uterine,Ovarian,Breast Hx of HIV: No Hx Hepatitis C: No Hx MRSA: No Surgical History: appendectomy, pacemaker, Hysterectomy - Vaccination History Hx Tetanus, Diphtheria Vaccination: No Hx Influenza Vaccination: No - NOT THIS SEASON Hx Pneumococcal Vaccination: Yes - Social History Hx Tobacco Use: No Hx Chewing Tobacco Use: No Hx Alcohol Use: No Hx Substance Use: No Hx Substance Use Treatment: No Hx Depression: No Hx Physical Abuse: No Hx Emotional Abuse: No Hx Suspected Abuse: No - Female History Patient is a Female of Child Bearing Age (10 -59 yrs old): No Patient : No Family Medical History - Family History Mother Family History: Unknown Living Status: Hx Family Stroke: Yes - several family members Hx Family Diabetes: Yes - several family members Physical Exam - Physical Exam General Appearance: Alert, Frail, Obvious distress - mild, Ill Appearing Eyes, Ears, Nose, Throat Exam: PERRL/EOMI, normal ENT inspection Neck: non-tender, full range of motion, supple Respiratory: respiratory distress - mild-moderate, accessory muscle use, rhonchi, wheezing Cardiovascular/Chest: normal peripheral pulses, no gallop, no murmur Gastrointestinal/Abdominal: normal bowel sounds, non tender, soft Extremity: normal range of motion, no pedal edema 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 Her CXR is read as PNA. K is nl at 3.9. Pt will need XFR to [facility] for HD and PNA mgmt. Pt is stable and clear for medical transfer. Have d/w Dr. Rosenberg, hospitalist, at [facility] who accepts pt in transfer. - Results/Orders Results/Orders: 06/16/19 08:25 BLOOD CULTURE Stat 06/16/19 08:29 Albuterol Sulfate Nebs (Ed Dis [Proventil Nebs ED DISPENSE] 2.5 ml NEB Q4H PRN 06/16/19 08:33 IV Care:Saline Lock per Protoc QSHIFT Telemetry .ONCE Sodium Chloride 0.9% (Flush) [Saline Flush Syringe] 10 ml IV PRN PRN 06/16/19 08:45 EKG STAT 06/16/19 09:00 Pulse Ox Daily 06/16/19 10:05 TROPONIN-I Stat Laboratory Results WBC 6.8 K/mm3 (4.8-10.8) 06/16/19 08:25 RBC 3.07 M/mm3 (4.20-5.40) L 06/16/19 08:25 Hgb 11.1 gm/dL (12.0-16.0) L 06/16/19 08:25 Hct 33.5 % (36.0-47.0) L 06/16/19 08:25 MCV 109.1 fl (81.0-99.0) H 06/16/19 08:25 MCH 36.0 pg (27.0-31.0) H 06/16/19 08:25 MCHC 33.0 g/dL (33.0-37.0) 06/16/19 08:25 RDW 16.7 % (11.5-14.5) H 06/16/19 08:25 Plt Count 147 K/mm3 (130-400) 06/16/19 08:25 MPV 9.2 fl (7.40-10.4) 06/16/19 08:25 Absolute Neuts (auto) 4.30 K/uL (1.8-6.8) 06/16/19 08:25 Absolute Lymphs (auto) 1.70 K/uL (1.0-3.4) 06/16/19 08:25 Absolute Monos (auto) 0.50 K/uL (0.2-0.8) 06/16/19 08:25 Absolute Eos (auto) 0.20 K/uL (0.0-0.4) 06/16/19 08:25 Absolute Basos (auto) 0.10 K/uL (0.0-0.1) 06/16/19 08:25 Neutrophils % 63.3 % (42.0-78.0) 06/16/19 08:25 Lymphocytes % 25.3 % (20.0-50.0) 06/16/19 08:25 Monocytes % 7.4 % (2.0-9.0) 06/16/19 08:25 Eosinophils % 2.9 % (1.0-5.0) 06/16/19 08:25 Basophils % 1.1 % (0.0-2.0) 06/16/19 08:25 Normal RBC Morphology 1+hypochromia 1+poikilocytosis 2+aniso 2+macrocytosis 06/16/19 08:25 Normal RBC Morphology 1+hypochromia 1+poikilocytosis 2+aniso 2+macrocytosis 06/16/19 08:25 Normal RBC Morphology 1+hypochromia 1+poikilocytosis 2+aniso 2+macrocytosis 06/16/19 08:25 Normal RBC Morphology 1+hypochromia 1+poikilocytosis 2+aniso 2+macrocytosis 06/16/19 08:25 Sodium 143 mmol/L (135-145) 06/16/19 08:25 Potassium 3.9 mmol/L (3.6-5.0) 06/16/19 08:25 Chloride 97 mmol/L (101-111) L 06/16/19 08:25 Carbon Dioxide 31 mmol/L (21-31) 06/16/19 08:25 Anion Gap 18.9 (12-18) H 06/16/19 08:25 BUN 24 mg/dL (7-18) H 06/16/19 08:25 Creatinine 4.17 mg/dL (0.6-1.3) H 06/16/19 08:25 BUN/Creatinine Ratio 5.8 (10-20) L 06/16/19 08:25 Random Glucose 180 mg/dL (70-105) H 06/16/19 08:25 Serum Osmolality 293.6 mOsm/L (275-295) 06/16/19 08:25 Calcium 8.5 mg/dL (8.4-10.2) 06/16/19 08:25 Total Bilirubin 0.6 mg/dL (0.2-1.0) 06/16/19 08:25 AST 22 IU/L (10-42) 06/16/19 08:25 ALT 11 IU/L (10-60) 06/16/19 08:25 Alkaline Phosphatase 78 IU/L (42-121) 06/16/19 08:25 Serum Total Protein 7.9 gm/dL (6.4-8.2) 06/16/19 08:25 Albumin 4.0 g/dl (3.2-5.5) 06/16/19 08:25 Globulin 3.9 gm/dL (2.3-3.5) H 06/16/19 08:25 Albumin/Globulin Ratio 1.0 (1.1-1.9) L 06/16/19 08:25 - EKG/XRAY/CT EKG: Sinus, RBBB Comments: LAD, wide QRS, ST/T changes c/w RBBB XRAY: chest Xray Comments: PNA CT Ordered: No Departure - Departure Clinical Impression: Pneumonia, ESRD (end stage renal disease) on dialysis Time of Disposition: 10:19 Disposition: Transfer to Hospital Condition: Fair Departure Forms: ED Discharge - Pt. Copy, Patient Portal Self Enrollment Home Medications: Ambulatory Orders RX: Acetaminophen [Tylenol] 650 mg PO Q6H PRN 07/05/16 RX: Citalopram Hydrobromide [Celexa] 20 mg PO BEDTIME 07/05/16 RX: Cyclobenzaprine HCl [Flexeril] 5 mg PO BID 07/05/16 RX: Diphenhydramine HCl 25 mg PO Q4H PRN 07/05/16 RX: Docusate Sodium 100 mg PO BID 07/05/16 RX: Insulin Detemir [Levemir Pen] 20 unit SUBCU BID 07/05/16 RX: Multiple Vitamin [Multi Vitamin Daily] 1 tab PO DAILY 07/05/16 RX: Ondansetron [Ondansetron Odt] 4 mg PO Q4HR PRN 07/05/16 RX: Cyanocobalamin [Vitamin B12] 1,000 mcg IM MONTHLY 07/06/16 RX: Polyethylene Glycol 3350 [Miralax] 17 gm PO DAILY PRN 07/06/16 RX: Sevelamer Carbonate [Renvela] 2,400 mg PO TIDFD 10/24/16 RX: Liraglutide [Victoza] 0.6 units SC DAILY 09/19/17 RX: Memantine HCl [Namenda Xr] 28 mg PO DAILY 09/19/17 RX: Glucagon HCl (Diagnostic) [Glucagon] 1 mg IJ PRN PRN 10/02/17 RX: Pantoprazole Sodium 40 mg PO DAILY 11/03/17 Apixaban [Eliquis] 2.5 mg PO BID 09/07/18 RX: Atorvastatin Calcium [Lipitor] 10 mg PO BEDTIME 09/07/18 RX: Donepezil Hydrochloride [Donepezil HCl] 23 mg PO BEDTIME 09/07/18 RX: Doxepin HCl 50 mg PO BEDTIME 09/07/18 Acetaminophen W/ Codeine [Tylenol W/ CODEINE #3] 1 ea PO Q6H PRN 01/02/19 Ergocalciferol [Drisdol] 50,000 unit PO DAILY 01/02/19 Montelukast [Singulair] 10 mg PO BEDTIME 01/02/19 RX: Albuterol Sulfate Nebs [Proventil Nebs] 2.5 mg NEB Q6H 01/02/19 Triamcinolone Acetonide (Topic [Triamcinolone Acetonide] 0.025 % EX BID 01/31/19 levoFLOXacin [Levaquin] 500 mg PO DAILY #3 tab 01/31/19 Apoaequorin [Prevagen] 10 mg PO DAILY 06/16/19 Guaifenesin [Guaifenesin ER] 600 mg PO BID 06/16/19 Human Insulin Aspart [Novolog] 3 unit SUBCU AC 06/16/19 Loratadine [Claritin] 10 mg PO DAILY 06/16/19 RX: Melatonin 3 mg PO BEDTIME 06/16/19 Transfer to Outside Facility - Transfer Information Accepting Provider:: Dr. Rosenberg Accepting Facility: [facility] Reason for Transfer: required specialist not available
[2019-06-16 10:57] VITALS: BP 157/80; O2SAT 96
== END 2019-06-16 10:57 | disposition short-term general hospital (02) ==
LOC: ER 08:07
DX: J18.9 Pneumonia, unspecified organism (principal); N18.6 End stage renal disease; I45.10 Unspecified right bundle-branch block; E03.9 Hypothyroidism, unspecified; E11.22 Type 2 diabetes mellitus with diabetic chronic kidney disease; K21.9 Gastro-esophageal reflux disease without esophagitis; I48.91 Unspecified atrial fibrillation; F03.90 Unspecified dementia, unspecified severity, without behavioral disturbance, psychotic disturbance, mood disturbance, and anxiety; Z99.2 Dependence on renal dialysis; Z95.0 Presence of cardiac pacemaker; Z85.3 Personal history of malignant neoplasm of breast; Z85.42 Personal history of malignant neoplasm of other parts of uterus; Z85.43 Personal history of malignant neoplasm of ovary; Z79.4 Long term (current) use of insulin; Z79.899 Other long term (current) drug therapy; Z79.01 Long term (current) use of anticoagulants
CPT/HCPCS: 71045; 80053; 84484; 85025; 87040; 93005; 94640; J0696; J7050; J7644

== ENCOUNTER 2019-08-27 15:45 | Emergency (ER) | payer OTHER ==
[2019-08-27] MEDS ORDERED: CALCIUM GLUCONATE INJ 1 GM/10 ML VIAL ONE ×2 (16:05→16:27)
[2019-08-27] MEDS ORDERED: ONDANSETRON INJ 4 MG/2 ML VIAL ONE (16:09)
[2019-08-27] MEDS ORDERED: ONDANSETRON INJ 4 MG/2 ML VIAL IV ONE (16:09)
--- NOTE | 2019-08-27 16:14 | ED.PDOC ---
History of Present Illness - General Chief Complaint: Chest Pain/GA Stated Complaint: Pressure on chest Time Seen by Provider: 08/27/19 16:12 Source: patient Exam Limitations: no limitations - History of Present Illness Initial Comments: 79 yo F with ESRD on dialysis who reports not feeling well 3hr and 45min into her dialysis session today, and EMS was called. Pt reports being in her normal state of health prior to her dialysis session. Pt receives dialysis M/W/F, has not missed any sessions. On transport to ED, pt started complaining of CP and per EMS was bradycardic to the 40's. Shortly after arrival to ED, pt went into V tach, became less response but never lost a pulse, by the time I came into the room, pt was in NSR with frequent PVC's on monitor, AAOx3, answering questions appropriately, stating she felt like someone was sitting on her chest, midsternal, no radiation, constant but waxing and waning, now with nausea. Denies f/c, cough, congestion, SOB, abd pain. Allergies/Adverse Reactions: Allergies NO KNOWN ALLERGY Allergy (Verified 06/16/19 08:50) Home Medications: Ambulatory Orders RX: Acetaminophen [Tylenol] 650 mg PO Q6H PRN 07/05/16 RX: Citalopram Hydrobromide [Celexa] 20 mg PO BEDTIME 07/05/16 RX: Cyclobenzaprine HCl [Flexeril] 5 mg PO BID 07/05/16 RX: Diphenhydramine HCl 25 mg PO Q4H PRN 07/05/16 RX: Docusate Sodium 100 mg PO BID 07/05/16 RX: Insulin Detemir [Levemir Pen] 20 unit SUBCU BID 07/05/16 RX: Multiple Vitamin [Multi Vitamin Daily] 1 tab PO DAILY 07/05/16 RX: Ondansetron [Ondansetron Odt] 4 mg PO Q4HR PRN 07/05/16 RX: Cyanocobalamin [Vitamin B12] 1,000 mcg IM MONTHLY 07/06/16 RX: Polyethylene Glycol 3350 [Miralax] 17 gm PO DAILY PRN 07/06/16 RX: Sevelamer Carbonate [Renvela] 2,400 mg PO TIDFD 10/24/16 RX: Liraglutide [Victoza] 0.6 units SC DAILY 09/19/17 RX: Memantine HCl [Namenda Xr] 28 mg PO DAILY 09/19/17 RX: Glucagon HCl (Diagnostic) [Glucagon] 1 mg IJ PRN PRN 10/02/17 RX: Pantoprazole Sodium 40 mg PO DAILY 11/03/17 Apixaban [Eliquis] 2.5 mg PO BID 09/07/18 RX: Atorvastatin Calcium [Lipitor] 10 mg PO BEDTIME 09/07/18 RX: Donepezil Hydrochloride [Donepezil HCl] 23 mg PO BEDTIME 09/07/18 RX: Doxepin HCl 50 mg PO BEDTIME 09/07/18 Acetaminophen W/ Codeine [Tylenol W/ CODEINE #3] 1 ea PO Q6H PRN 01/02/19 Ergocalciferol [Drisdol] 50,000 unit PO DAILY 01/02/19 Montelukast [Singulair] 10 mg PO BEDTIME 01/02/19 RX: Albuterol Sulfate Nebs [Proventil Nebs] 2.5 mg NEB Q6H 01/02/19 Triamcinolone Acetonide (Topic [Triamcinolone Acetonide] 0.025 % EX BID 01/31/19 levoFLOXacin [Levaquin] 500 mg PO DAILY #3 tab 01/31/19 Apoaequorin [Prevagen] 10 mg PO DAILY 06/16/19 Guaifenesin [Guaifenesin ER] 600 mg PO BID 06/16/19 Human Insulin Aspart [Novolog] 3 unit SUBCU AC 06/16/19 Loratadine [Claritin] 10 mg PO DAILY 06/16/19 RX: Melatonin 3 mg PO BEDTIME 06/16/19 Review of Systems - Review of Systems Constitutional: Denies: chills, fever EENTM: Denies: nose congestion, throat pain Respiratory: Denies: cough, short of breath Cardiology: States: chest pain, palpitations. Denies: edema Gastrointestinal/Abdominal: States: nausea. Denies: abdominal pain, diarrhea, vomiting Musculoskeletal: Denies: back pain, neck pain Skin: Denies: lesions, rash Neurological: Denies: headache, numbness, weakness Past Medical History (General) - Patient Medical History Hx Seizures: No Hx Stroke: No Hx Dementia: Yes Hx Asthma: No Hx of COPD: No Hx Cardiac Disorders: Yes - A fib Hx Congestive Heart Failure: No Hx Pacemaker: Yes Hx Hypertension: No Hx Thyroid Disease: Yes - Hypo Hx Diabetes: Yes Hx Gastroesophageal Reflux: Yes Hx Renal Disease: Yes - ESRD - Dialysis MWF Hx Cancer: Yes - Uterine,Ovarian,Breast Hx of HIV: No Hx Hepatitis C: No Hx MRSA: No - Vaccination History Hx Tetanus, Diphtheria Vaccination: No Hx Influenza Vaccination: No - NOT THIS SEASON Hx Pneumococcal Vaccination: Yes - Social History Hx Tobacco Use: No Hx Chewing Tobacco Use: No Hx Alcohol Use: No Hx Substance Use: No Hx Substance Use Treatment: No Hx Depression: No Hx Physical Abuse: No Hx Emotional Abuse: No Hx Suspected Abuse: No - Female History Patient : No Family Medical History - Family History Mother Family History: Unknown Living Status: Hx Family Stroke: Yes - several family members Hx Family Diabetes: Yes - several family members Physical Exam - Physical Exam General Appearance: Alert, Comfortable, Well Developed, Well Nourished Eyes, Ears, Nose, Throat Exam: normal ENT inspection Neck: non-tender, full range of motion, supple, normal inspection Respiratory: chest non-tender, lungs clear, normal breath sounds, no respiratory distress, no accessory muscle use Cardiovascular/Chest: normal peripheral pulses, regular rate, rhythm, no edema, no gallop, no JVD, no murmur Peripheral Pulses: radial,right: 2+, radial,left: 2+ Gastrointestinal/Abdominal: non tender, soft, no organomegaly, no pulsatile mass Extremity: normal range of motion, non-tender, normal inspection, no pedal edema Neurologic: no motor/sensory deficits, alert, normal mood/affect, oriented x 3 Skin Exam: normal color, warm/dry Progress - Progress Progress: 08/27/19 16:49 Pt had another episode of V tach become less responsive, always maintained a pulse. Amiodarone bolus given, pads in place. Discussed with ED physician at [facility], accepts pt for transfer. Subsequently updated pt and family member that is now at bedside, agree with plan for transfer. Pt will be transfer via helicopter 2/ to serious condition. At this time, no further episodes of V tach since amiodarone bolus. Ximena Santoro MD Emergency Medicine Physician Billing Number [id number] - Results/Orders Results/Orders: Laboratory Results - last 24 hr 08/27/19 08/27/19 08/27/19 16:17 16:17 16:17 WBC 7.2 RBC 3.17 L Hgb 11.4 L Hct 33.9 L MCV 107.1 H MCH 36.0 H MCHC 33.6 RDW 18.3 H Plt Count 163 MPV 8.5 Absolute Neuts (auto) 3.90 Absolute Lymphs (auto) 2.50 Absolute Monos (auto) 0.60 Absolute Eos (auto) 0.10 Absolute Basos (auto) 0.10 Neutrophils % 53.8 Lymphocytes % 35.2 Monocytes % 7.8 Eosinophils % 1.8 Basophils % 1.4 Sodium 142 Potassium 3.0 L Chloride 95 L Carbon Dioxide 33 H Anion Gap 17.0 BUN 7 Creatinine 1.69 H BUN/Creatinine Ratio 4.1 L Random Glucose 125 H Serum Osmolality 282.6 Calcium 8.7 Phosphorus Magnesium Total Bilirubin 0.7 AST 30 ALT 21 Alkaline Phosphatase 109 Troponin I 0.03 Serum Total Protein 7.6 Albumin 3.9 Globulin 3.7 H Albumin/Globulin Ratio 1.1 08/27/19 16:17 WBC RBC Hgb Hct MCV MCH MCHC RDW Plt Count MPV Absolute Neuts (auto) Absolute Lymphs (auto) Absolute Monos (auto) Absolute Eos (auto) Absolute Basos (auto) Neutrophils % Lymphocytes % Monocytes % Eosinophils % Basophils % Sodium Potassium Chloride Carbon Dioxide Anion Gap BUN Creatinine BUN/Creatinine Ratio Random Glucose Serum Osmolality Calcium Phosphorus 1.6 L* Magnesium 1.9 Total Bilirubin AST ALT Alkaline Phosphatase Troponin I Serum Total Protein Albumin Globulin Albumin/Globulin Ratio CXR: EXAM: XR Chest, 1 View CLINICAL HISTORY: chest pain TECHNIQUE: Frontal view of the chest. COMPARISON: 06/16/2019 and 11/03/2017. FINDINGS: Limitations: None. Lungs: Unremarkable. No consolidation. Pleural space: Unremarkable. No pneumothorax. Heart: Stable cardiac enlargement. Mediastinum: Unremarkable. Bones/joints: Unremarkable. Soft tissues: Stable left axillary stent. Vasculature: Bilateral parenchymal scarring present with mild superimposed vascular congestion. Disease is similar but significantly less severe than on the most recent prior study. Tubes, lines and devices: Stable cardiac pacing device. IMPRESSION: Chronic changes with mild superimposed pulmonary edema or interstitial pneumonia. Electronically signed by: Diane Mccormick MD 08/27/2019 4:30 PM [employer] REPA[employer]ER - EKG/XRAY/CT EKG: Sinus, nonspecific ST T wave Chg Comments: Frequent PVC's, nonspecific intraventricular block Departure - Departure Clinical Impression: V tach Chest pain Qualifiers: Chest pain type: unspecified Qualified Code(s): R07.9 - Chest pain, unspecified Time of Disposition: 16:50 Disposition: Transfer to Hospital Condition: Serious Home Medications: Ambulatory Orders RX: Acetaminophen [Tylenol] 650 mg PO Q6H PRN 07/05/16 RX: Citalopram Hydrobromide [Celexa] 20 mg PO BEDTIME 07/05/16 RX: Cyclobenzaprine HCl [Flexeril] 5 mg PO BID 07/05/16 RX: Diphenhydramine HCl 25 mg PO Q4H PRN 07/05/16 RX: Docusate Sodium 100 mg PO BID 07/05/16 RX: Insulin Detemir [Levemir Pen] 20 unit SUBCU BID 07/05/16 RX: Multiple Vitamin [Multi Vitamin Daily] 1 tab PO DAILY 07/05/16 RX: Ondansetron [Ondansetron Odt] 4 mg PO Q4HR PRN 07/05/16 RX: Cyanocobalamin [Vitamin B12] 1,000 mcg IM MONTHLY 07/06/16 RX: Polyethylene Glycol 3350 [Miralax] 17 gm PO DAILY PRN 07/06/16 RX: Sevelamer Carbonate [Renvela] 2,400 mg PO TIDFD 10/24/16 RX: Liraglutide [Victoza] 0.6 units SC DAILY 09/19/17 RX: Memantine HCl [Namenda Xr] 28 mg PO DAILY 09/19/17 RX: Glucagon HCl (Diagnostic) [Glucagon] 1 mg IJ PRN PRN 10/02/17 RX: Pantoprazole Sodium 40 mg PO DAILY 11/03/17 Apixaban [Eliquis] 2.5 mg PO BID 09/07/18 RX: Atorvastatin Calcium [Lipitor] 10 mg PO BEDTIME 09/07/18 RX: Donepezil Hydrochloride [Donepezil HCl] 23 mg PO BEDTIME 09/07/18 RX: Doxepin HCl 50 mg PO BEDTIME 09/07/18 Acetaminophen W/ Codeine [Tylenol W/ CODEINE #3] 1 ea PO Q6H PRN 01/02/19 Ergocalciferol [Drisdol] 50,000 unit PO DAILY 01/02/19 Montelukast [Singulair] 10 mg PO BEDTIME 01/02/19 RX: Albuterol Sulfate Nebs [Proventil Nebs] 2.5 mg NEB Q6H 01/02/19 Triamcinolone Acetonide (Topic [Triamcinolone Acetonide] 0.025 % EX BID 01/31/19 levoFLOXacin [Levaquin] 500 mg PO DAILY #3 tab 01/31/19 Apoaequorin [Prevagen] 10 mg PO DAILY 06/16/19 Guaifenesin [Guaifenesin ER] 600 mg PO BID 06/16/19 Human Insulin Aspart [Novolog] 3 unit SUBCU AC 06/16/19 Loratadine [Claritin] 10 mg PO DAILY 06/16/19 RX: Melatonin 3 mg PO BEDTIME 06/16/19
--- NOTE | 2019-08-27 16:31 | RAD ---
EXAM: XR Chest, 1 View CLINICAL HISTORY: chest pain TECHNIQUE: Frontal view of the chest. COMPARISON: 06/16/2019 and 11/03/2017. FINDINGS: Limitations: None. Lungs: Unremarkable. No consolidation. Pleural space: Unremarkable. No pneumothorax. Heart: Stable cardiac enlargement. Mediastinum: Unremarkable. Bones/joints: Unremarkable. Soft tissues: Stable left axillary stent. Vasculature: Bilateral parenchymal scarring present with mild superimposed vascular congestion. Disease is similar but significantly less severe than on the most recent prior study. Tubes, lines and devices: Stable cardiac pacing device. IMPRESSION: Chronic changes with mild superimposed pulmonary edema or interstitial pneumonia. Electronically signed by: Diane Mccormick MD 08/27/2019 4:30 PM [employer] HELPER
[2019-08-27] MEDS ORDERED: CALCIUM GLUCONATE INJ 1 GM/10 ML VIAL IV ONE (16:35)
[2019-08-27] MEDS ORDERED: AMIODARONE IV (LOAD) 150 MG in DEXTROSE 5% 100ML 100 ML IVPB ONE (16:35)
[2019-08-27 18:52] VITALS: BP 148/61; TEMP 98; O2SAT 99
== END 2019-08-27 17:55 | disposition short-term general hospital (02) ==
LOC: ER 15:54
DX: I47.2 Ventricular tachycardia (principal); R07.2 Precordial pain; I45.4 Nonspecific intraventricular block; I49.3 Ventricular premature depolarization; R11.0 Nausea; N18.6 End stage renal disease; F03.90 Unspecified dementia, unspecified severity, without behavioral disturbance, psychotic disturbance, mood disturbance, and anxiety; I48.91 Unspecified atrial fibrillation; E03.9 Hypothyroidism, unspecified; E11.22 Type 2 diabetes mellitus with diabetic chronic kidney disease; K21.9 Gastro-esophageal reflux disease without esophagitis; Z99.2 Dependence on renal dialysis; Z85.3 Personal history of malignant neoplasm of breast; Z85.42 Personal history of malignant neoplasm of other parts of uterus; Z85.43 Personal history of malignant neoplasm of ovary; Z79.4 Long term (current) use of insulin; Z79.899 Other long term (current) drug therapy; Z79.01 Long term (current) use of anticoagulants
CPT/HCPCS: 71045; 80053; 83735; 84100; 84484; 85025; 93005; J2405

== ENCOUNTER 2020-04-06 10:55 | Emergency (ER) | payer OTHER ==
[2020-04-06] MEDS ORDERED: IPRATROPIUM/ALBUTEROL 3 ML VIAL NEB ONE (11:07)
[2020-04-06 12:01] VITALS: O2SAT 96
[2020-04-06] MEDS ORDERED: cefTRIAXone SODIUM 1 GM in SODIUM CHL 0.9% 50ML MIN-BAG+ 50 ML IVPB ONE (12:01)
[2020-04-06] MEDS ORDERED: AZITHROMYCIN IV 500 MG in SODIUM CHLORIDE 0.9% 250ML 250 ML IVPB ONE (12:01)
--- NOTE | 2020-04-06 13:43 | ED.PDOC ---
History of Present Illness - General Chief Complaint: Respiratory Problem Stated Complaint: low oxygen sats,trouble breathing Time Seen by Provider: 04/06/20 10:57 Source: patient Exam Limitations: no limitations - History of Present Illness Initial Comments: The patient is a 80-year-old female presented emergency room after having fallen. The patient was reporting pain in the right hip. She does normally ambulate with a walker. She has had multiple falls in the past. She actually was able to ambulate from the wheelchair to the bed fairly well. She moves all extremities fairly well. Pelvis stable. The patient is alert pleasant and cooperative. The patient is found to be hypoxic with oxygen saturations in the mid to high 70s. She does not report any fever or productive cough. She does not report any shortness of breath. She does not normally wear oxygen. She has had pneumonias in the past. She apparently has a history of hypertension, chronic renal insufficiency with her last dialysis yesterday, urinary tract infections, CHF, insulin-dependent diabetes, peripheral vascular disease, arrhythmia with current anticoagulation. No known coronavirus exposure though the local infection counts are rising significantly, and she does go to dialysis 3 times a week Timing/Duration: 4-6 hours Severity: moderate Improving Factors: immobilization Worsening Factors: movement Associated Symptoms: cough Allergies/Adverse Reactions: Allergies NO KNOWN ALLERGY Allergy (Verified 06/16/19 08:50) Home Medications: Ambulatory Orders Citalopram Hydrobromide [Celexa] 40 mg PO BEDTIME 07/05/16 Cyclobenzaprine HCl [Flexeril] 5 mg PO BID PRN 07/05/16 Docusate Sodium 100 mg PO BID 07/05/16 Insulin Detemir [Levemir Pen] 20 unit SUBCU BID 07/05/16 Ondansetron [Ondansetron Odt] 4 mg PO Q4HR PRN 07/05/16 Cyanocobalamin [Vitamin B12] 1,000 mcg IM MONTHLY 07/06/16 Sevelamer Carbonate [Renvela] 2,400 mg PO TIDFD 10/24/16 Liraglutide [Victoza] 0.6 units SC DAILY 09/19/17 Memantine HCl [Namenda Xr] 28 mg PO DAILY 09/19/17 Glucagon HCl (Diagnostic) [Glucagon] 1 mg IJ PRN PRN 10/02/17 Pantoprazole Sodium 40 mg PO DAILY 11/03/17 Apixaban [Eliquis] 2.5 mg PO BID 09/07/18 Atorvastatin Calcium [Lipitor] 10 mg PO BEDTIME 09/07/18 Doxepin HCl 100 mg PO BEDTIME 09/07/18 Acetaminophen W/ Codeine [Tylenol W/ CODEINE #3] 1 ea PO Q6H PRN 01/02/19 Ergocalciferol [Drisdol] 50,000 unit PO MONTHLY 01/02/19 Montelukast [Singulair] 10 mg PO BEDTIME 01/02/19 Triamcinolone Acetonide (Topic [Triamcinolone Acetonide] 0.025 % EX PRN 01/31/19 Apoaequorin [Prevagen] 10 mg PO DAILY 06/16/19 Human Insulin Aspart [Novolog] 3 unit SUBCU AC 06/16/19 Loratadine [Claritin] 10 mg PO DAILY 06/16/19 Melatonin 5 mg PO BEDTIME 06/16/19 Amiodarone HCl [Amiodarone Hydrochloride] 100 mg PO DAILY 04/06/20 Ascorbic Acid [Vitamin C] 500 mg PO DAILY 04/06/20 Folic Acid 1 mg PO DAILY 04/06/20 Metoprolol Tartrate 25 mg PO BID 04/06/20 Multiple Vitamins W/ Minerals [Multivitamin Adults] 1 tab PO DAILY 04/06/20 Mupirocin 2 % Oint [Bactroban Oint] 1 applic TOP PRN 04/06/20 Nystatin (Topical) [Nystatin] 100,000 unit EX PRN 04/06/20 Review of Systems - Review of Systems Constitutional: States: no symptoms reported EENTM: States: no symptoms reported Respiratory: States: cough Cardiology: States: no symptoms reported Gastrointestinal/Abdominal: States: no symptoms reported Genitourinary: States: no symptoms reported Musculoskeletal: States: see HPI Skin: States: no symptoms reported Neurological: States: no symptoms reported Endocrine: States: no symptoms reported All other Systems: No Change from Baseline Past Medical History (General) - Patient Medical History Hx Seizures: No Hx Stroke: No Hx Dementia: Yes Hx Asthma: No Hx of COPD: No Hx Cardiac Disorders: Yes - A fib Hx Congestive Heart Failure: No Hx Pacemaker: Yes Hx Hypertension: No Hx Thyroid Disease: Yes - Hypo Hx Diabetes: Yes Hx Gastroesophageal Reflux: Yes Hx Renal Disease: Yes - ESRD - Dialysis MWF Hx Cancer: Yes - Uterine,Ovarian,Breast Hx of HIV: No Hx Hepatitis C: No Hx MRSA: No Surgical History: Hysterectomy - Vaccination History Hx Tetanus, Diphtheria Vaccination: No Hx Influenza Vaccination: Yes Hx Pneumococcal Vaccination: Yes - Social History Hx Tobacco Use: No Hx Chewing Tobacco Use: No Hx Alcohol Use: No Hx Substance Use: No Hx Substance Use Treatment: No Hx Depression: No Hx Physical Abuse: No Hx Emotional Abuse: No Hx Suspected Abuse: No - Activities of Daily Living Jail/Assisted Living (if applicable):: [facility] - Female History Patient : No Family Medical History - Family History Mother Family History: Unknown Living Status: Hx Family Stroke: Yes - several family members Hx Family Diabetes: Yes - several family members Physical Exam - Physical Exam General Appearance: Alert, Comfortable, No apparent distress Eye Exam: bilateral normal Ears, Nose, Throat: hearing grossly normal, normal pharynx Neck: full range of motion, supple Respiratory: no respiratory distress, no accessory muscle use, rales, rhonchi - Scattered. Good air movement. Cardiovascular/Chest: normal peripheral pulses, regular rate, rhythm, no edema Peripheral Pulses: radial,right: 2+, radial,left: 2+ Gastrointestinal/Abdominal: non tender, soft Rectal Exam: deferred Extremity: no pedal edema, no calf tenderness, normal capillary refill, other - Mild right hip discomfort with movement. The patient is able to bear weight. No shortening or rotation. Mild pain with palpation. 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, alert, normal mood/affect, oriented x 3 Skin Exam: normal color Comments: Vital Signs - 24 hr 04/06/20 04/06/20 04/06/20 11:20 11:38 12:00 Temperature 100.3 F H Pulse Rate 62 Pulse Rate [ 59 L 66 Right Brachial] Respiratory 20 20 20 Rate Blood Pressure 119/74 134/44 [Right Arm] O2 Sat by Pulse 79 L 96 96 Oximetry 04/06/20 12:57 Temperature Pulse Rate Pulse Rate [ Right Brachial] Respiratory Rate Blood Pressure [Right Arm] O2 Sat by Pulse 96 Oximetry Progress - Progress Progress: 04/06/20 13:46 The patient is a 80-year-old female presented emergency room secondary to having fallen, given her right hip pain. The patient was found to be significantly hypoxic and appears to have at least a small left lower lobe pneumonia on x-ray, though exam shows significant scattered rales and rhonchi. She has corrected well with low flow oxygen. She did receive 1 breathing treatment here. The patient is due for dialysis tomorrow. Blood and sputum cultures have been done. She has tested negative for influenza. A coronavirus test is being sent off but turnaround time is 2 to 5 days. It is possible the patient has coronavirus. X-rays of the pelvis and right hip show no evidence of any new fracture or dislocation. She does have longstanding gait instability and does need a walker to get around. The patient is being transferred to [facility] for higher level of care. Acceptance is appreciated. The disc of imaging will be sent along, as we do not have official reports for the chest and hip x-rays at this time due to technical difficulties. valdemar tejada [phone] - Results/Orders Results/Orders: Rapid flu was negative. EKG shows mild left axis deviation. Old right bundle branch block. Normal sinus rhythm at 62 bpm. Corresponding QT prolongation. No obvious new ST segment or T wave changes when compared to previous EKGs. Chest x-ray shows a chronically elevated right hemidiaphragm. Mild haziness of the left cardiac border. Final read on this is unavailable due to technical difficulties. X-ray of the pelvis shows an old left-sided pelvic fracture but otherwise no evidence of any new fracture or dislocation. X-ray of the right hip shows no dislocation or fracture. Osteoarthritic changes are noted. Final read is unavailable due to technical difficulties at this time. Laboratory Tests 04/06/20 04/06/20 04/06/20 11:20 11:25 11:25 WBC 13.2 H RBC 3.21 L Hgb 11.3 L Hct 33.8 L MCV 105.3 H MCH 35.2 H MCHC 33.4 RDW 16.8 H Plt Count 193 MPV 9.1 Absolute Neuts (auto) 9.40 H Absolute Lymphs (auto) 2.40 Absolute Monos (auto) 1.10 H Absolute Eos (auto) 0.10 Absolute Basos (auto) 0.10 Neutrophils % 71.5 Lymphocytes % 18.2 L Monocytes % 8.3 Eosinophils % 1.0 Basophils % 1.0 Normal RBC Morphology Stain quality accept Sodium 138 Potassium 3.7 Chloride 92 L Carbon Dioxide 33 H Anion Gap 16.7 BUN 31 H Creatinine 4.02 H BUN/Creatinine Ratio 7.7 L Random Glucose 61 L Serum Osmolality 280.1 Lactic Acid 1.8 Calcium 8.8 Total Bilirubin 1.1 H AST 33 ALT 23 Alkaline Phosphatase 86 Creatine Kinase 73 CK-MB (CK-2) 1.8 CK-MB (CK-2) % Not Reportable Troponin I 0.04 B-Natriuretic Peptide 688.0 H* Serum Total Protein 8.2 Albumin 3.8 Globulin 4.4 H Albumin/Globulin Ratio 0.9 L Departure - Departure Clinical Impression: End stage renal disease Left lower lobe pneumonia Qualifiers: Pneumonia type: due to unspecified organism Qualified Code(s): J18.9 - Pneumonia, unspecified organism Fall at home Qualifiers: Encounter type: initial encounter Qualified Code(s): W19.XXXA - Unspecified fall, initial encounter; Y92.009 - Unspecified place in unspecified non- institutional (private) residence as the place of occurrence of the external cause Strain of right hip Qualifiers: Encounter type: initial encounter Qualified Code(s): S76.011A - Strain of muscl e, fascia and tendon of right hip, initial encounter Disposition: Transfer to Hospital Condition: Fair Departure Forms: ED Discharge - Pt. Copy, Patient Portal Self Enrollment Referrals: Darrel Marroquin III, MD [Primary Care Provider] - 1-2 Weeks Home Medications: Ambulatory Orders Citalopram Hydrobromide [Celexa] 40 mg PO BEDTIME 07/05/16 Cyclobenzaprine HCl [Flexeril] 5 mg PO BID PRN 07/05/16 Docusate Sodium 100 mg PO BID 07/05/16 Insulin Detemir [Levemir Pen] 20 unit SUBCU BID 07/05/16 Ondansetron [Ondansetron Odt] 4 mg PO Q4HR PRN 07/05/16 Cyanocobalamin [Vitamin B12] 1,000 mcg IM MONTHLY 07/06/16 Sevelamer Carbonate [Renvela] 2,400 mg PO TIDFD 10/24/16 Liraglutide [Victoza] 0.6 units SC DAILY 09/19/17 Memantine HCl [Namenda Xr] 28 mg PO DAILY 09/19/17 Glucagon HCl (Diagnostic) [Glucagon] 1 mg IJ PRN PRN 10/02/17 Pantoprazole Sodium 40 mg PO DAILY 11/03/17 Apixaban [Eliquis] 2.5 mg PO BID 09/07/18 Atorvastatin Calcium [Lipitor] 10 mg PO BEDTIME 09/07/18 Doxepin HCl 100 mg PO BEDTIME 09/07/18 Acetaminophen W/ Codeine [Tylenol W/ CODEINE #3] 1 ea PO Q6H PRN 01/02/19 Ergocalciferol [Drisdol] 50,000 unit PO MONTHLY 01/02/19 Montelukast [Singulair] 10 mg PO BEDTIME 01/02/19 Triamcinolone Acetonide (Topic [Triamcinolone Acetonide] 0.025 % EX PRN 01/31/19 Apoaequorin [Prevagen] 10 mg PO DAILY 06/16/19 Human Insulin Aspart [Novolog] 3 unit SUBCU AC 06/16/19 Loratadine [Claritin] 10 mg PO DAILY 06/16/19 Melatonin 5 mg PO BEDTIME 06/16/19 Amiodarone HCl [Amiodarone Hydrochloride] 100 mg PO DAILY 04/06/20 Ascorbic Acid [Vitamin C] 500 mg PO DAILY 04/06/20 Folic Acid 1 mg PO DAILY 04/06/20 Metoprolol Tartrate 25 mg PO BID 04/06/20 Multiple Vitamins W/ Minerals [Multivitamin Adults] 1 tab PO DAILY 04/06/20 Mupirocin 2 % Oint [Bactroban Oint] 1 applic TOP PRN 04/06/20 Nystatin (Topical) [Nystatin] 100,000 unit EX PRN 04/06/20 Transfer to Outside Facility - Transfer Information Decision to Transfer Date: 04/06/20 Decision to Transfer Time: 13:50 Reason for Transfer: specialized care not available Accepting Provider:: dr lopez Accepting Facility: [facility]
[2020-04-06 15:18] VITALS: BP 119/48; TEMP 98
--- NOTE | 2020-04-06 17:19 | RAD ---
EXAM DESCRIPTION: XR HIP 2 VIEWS CLINICAL HISTORY: 80 years, Female, fall this morning COMPARISON: None TECHNIQUE: AP and frog leg lateral views of the right hip FINDINGS: 2 views of the right hip reveal no fracture or dislocation. Prominent spurring at the lateral ischium below the femoral neck. Greater trochanteric enthesopathy. Calcific densities in the fatty tissue of the right buttock region likely dystrophic. No lytic bone lesion. Degenerative narrowing of the right SI joint and pubic symphysis. Mild right hip joint space narrowing. IMPRESSION: Negative for fracture or dislocation. Electronically signed by: Valentín Tabares MD 04/06/2020 11:59 AM CDT
--- NOTE | 2020-04-06 17:19 | RAD ---
EXAM DESCRIPTION: XR CHEST 1 VIEW CLINICAL HISTORY: 80 years Female, fall this morning COMPARISON: Previous chest x-ray August 27, 2019 TECHNIQUE: AP portable chest. FINDINGS: Heart size is large with increased pulmonary vascularity. Cardiac pacer is in place. Right hemidiaphragm is elevated. Increased density in the medial left lung base is new compared to previous study. This is consistent with developing infiltrate or partial volume loss. No pulmonary mass or worrisome nodule. No pneumothorax or pleural effusion. Degenerative arthrosis of the right shoulder. IMPRESSION: Left basilar infiltrate or partial volume loss. Arch are with increased vascularity. Elevated right hemidiaphragm. Electronically signed by: Valentín Tabares MD 04/06/2020 11:56 AM CDT
--- NOTE | 2020-04-06 17:19 | RAD ---
EXAM DESCRIPTION: XR PELVIS 1 VIEWS CLINICAL HISTORY: 80 years Female, fall this morning COMPARISON: X-ray pelvis May 24, 2018 FINDINGS: Methacrylate is seen in the mid lumbar spine. Extensive degenerative spurring in the L-spine. Sacrum appears intact. Degenerative narrowing of the SI joints and pubic symphysis. Moderate degenerative narrowing of the left hip joint with milder changes on the right. Deformed appearance of the left superior pubic ramus is also seen on the previous study. No new deformity to suggest an acute fracture. IMPRESSION: No acute fracture. Electronically signed by: Valentín Tabares MD 04/06/2020 12:02 PM CDT
== END 2020-04-06 15:18 | disposition short-term general hospital (02) ==
LOC: ER 10:55
DX: J18.9 Pneumonia, unspecified organism (principal); S76.011A Strain of muscle, fascia and tendon of right hip, initial encounter; I12.0 Hypertensive chronic kidney disease with stage 5 chronic kidney disease or end stage renal disease; E11.22 Type 2 diabetes mellitus with diabetic chronic kidney disease; N18.6 End stage renal disease; I48.91 Unspecified atrial fibrillation; Z79.01 Long term (current) use of anticoagulants; Z99.2 Dependence on renal dialysis; W19.XXXA Unspecified fall, initial encounter; Y92.009 Unspecified place in unspecified non-institutional (private) residence as the place of occurrence of the external cause
CPT/HCPCS: 36415; 71045; 72170; 73502; 80053; 82550; 82553; 83605; 83880; 84484; 85025; 87040; 87502; 87635; 93005; 94640; J0456; J0696; J7050; J7620

== ENCOUNTER → 2020-04-30 | Outpatient (CLI) | payer OTHER | LOC: GOCC 19:49 | PROVIDERS: ATTEND Internal Medicine | DX: N39.0 Urinary tract infection, site not specified (principal) ==

== ENCOUNTER 2020-05-16 23:59 | Emergency (ER) | payer OTHER ==
[2020-05-17] MEDS ORDERED: ALUM & MAG HYDROX-SIMETHICONE 30 ML, LIDOCAINE VISCOUS 2% 15 ML PO ONE ×2 (00:10)
[2020-05-17 00:32] VITALS: TEMP 97.3; O2SAT 100
--- NOTE | 2020-05-17 01:21 | RAD ---
Acute abdominal series x-ray three view on 05/17/2020 CLINICAL INDICATION: Epigastric pain, vomiting COMPARISON: Chest x-ray from 04/06/[address] abdomen and pelvis from 01/16/2017 FINDINGS: CHEST: 2-lead right subclavian pacemaker is noted in place. There is elevation of the right hemidiaphragm. Mild chronic interstitial changes are noted. The lungs are otherwise clear. Cardiac, hilar and mediastinal contours are within normal limits. ABDOMEN: The patient is status post vertebroplasty/kyphoplasty at L3. Bowel gas pattern is unremarkable. There is no free air. No increased stool to suggest constipation is noted. No abnormal calcification or mass effect is noted. Degenerative changes are noted in the spine. Old left pelvic fractures are noted. IMPRESSION: 1. No acute cardiopulmonary disease. 2. Nonspecific abdomen. Electronically signed by: Hammad Darling 05/17/2020 1:19 AM CDT
[2020-05-17] MEDS ORDERED: SUCRALFATE 1 GM/10 ML 1 GM UD PO ONE (01:24)
[2020-05-17] MEDS ORDERED: PROMETHAZINE HCL 25 MG TAB PO ONE (01:24)
--- NOTE | 2020-05-17 01:28 | ED.PDOC ---
History of Present Illness - General Chief Complaint: Chest Pain/CA Stated Complaint: chest pain Time Seen by Provider: 05/17/20 00:06 Source: patient, EMS, correction records Exam Limitations: no limitations - History of Present Illness Initial Comments: The patient is a 80-year-old female presented emergency room secondary to an episode of what she had initially called chest discomfort followed by an episode of vomiting which relieved the chest discomfort. On further questioning and examination, the chest discomfort is actually epigastric discomfort. The patient does have some epigastric discomfort to palpation. She was recently placed on Eliquis due to coronavirus infection. She appears to be oxygenating very well with supplemental oxygen currently. She is in no acute distress. She is not having any pain at this point. The patient is pleasant and cooperative. Vital signs are stable. No further vomiting. She had received a dose of Zofran just prior to EMS arriving. The patient had also up until just the last day or 2 been on a oral antibiotic as well. The vomitus did not have significant bile, blood or coffee-ground material according to report. Timing/Duration: 1/2 hour Severity: mild Improving Factors: nothing Worsening Factors: nothing Associated Symptoms: loss of appetite, malaise, nausea/vomiting Allergies/Adverse Reactions: Allergies NO KNOWN ALLERGY Allergy (Verified 06/16/19 08:50) Home Medications: Ambulatory Orders Citalopram Hydrobromide [Celexa] 40 mg PO BEDTIME 07/05/16 Cyclobenzaprine HCl [Flexeril] 5 mg PO BID PRN 07/05/16 Docusate Sodium 100 mg PO BID 07/05/16 Insulin Detemir [Levemir Pen] 20 unit SUBCU BID 07/05/16 Ondansetron [Ondansetron Odt] 4 mg PO Q4HR PRN 07/05/16 Cyanocobalamin [Vitamin B12] 1,000 mcg IM MONTHLY 07/06/16 Sevelamer Carbonate [Renvela] 2,400 mg PO TIDFD 10/24/16 Liraglutide [Victoza] 0.6 units SC DAILY 09/19/17 Memantine HCl [Namenda Xr] 28 mg PO DAILY 09/19/17 Glucagon HCl (Diagnostic) [Glucagon] 1 mg IJ PRN PRN 10/02/17 Pantoprazole Sodium 40 mg PO DAILY 11/03/17 Apixaban [Eliquis] 2.5 mg PO BID 09/07/18 Atorvastatin Calcium [Lipitor] 10 mg PO BEDTIME 09/07/18 Doxepin HCl 100 mg PO BEDTIME 09/07/18 Acetaminophen W/ Codeine [Tylenol W/ CODEINE #3] 1 ea PO Q6H PRN 01/02/19 Ergocalciferol [Drisdol] 50,000 unit PO MONTHLY 01/02/19 Montelukast [Singulair] 10 mg PO BEDTIME 01/02/19 Triamcinolone Acetonide (Topic [Triamcinolone Acetonide] 0.025 % EX PRN 01/31/19 Apoaequorin [Prevagen] 10 mg PO DAILY 06/16/19 Human Insulin Aspart [Novolog] 3 unit SUBCU AC 06/16/19 Loratadine [Claritin] 10 mg PO DAILY 06/16/19 Melatonin 5 mg PO BEDTIME 06/16/19 Amiodarone HCl [Amiodarone Hydrochloride] 100 mg PO DAILY 04/06/20 Ascorbic Acid [Vitamin C] 500 mg PO DAILY 04/06/20 Folic Acid 1 mg PO DAILY 04/06/20 Metoprolol Tartrate 25 mg PO BID 04/06/20 Multiple Vitamins W/ Minerals [Multivitamin Adults] 1 tab PO DAILY 04/06/20 Mupirocin 2 % Oint [Bactroban Oint] 1 applic TOP PRN 04/06/20 Nystatin (Topical) [Nystatin] 100,000 unit EX PRN 04/06/20 Famotidine 20 mg PO DAILY #30 tab 05/17/20 Ondansetron Odt [Zofran ODT] 4 mg PO Q8HR PRN #5 tab 05/17/20 Sucralfate Tab [Carafate Tab] 1 gm PO QID #60 tab 05/17/20 Review of Systems - Review of Systems Constitutional: States: no symptoms reported EENTM: States: no symptoms reported Respiratory: States: no symptoms reported Cardiology: States: no symptoms reported Gastrointestinal/Abdominal: States: nausea, vomiting Genitourinary: States: no symptoms reported Musculoskeletal: States: no symptoms reported Skin: States: no symptoms reported Neurological: States: no symptoms reported Endocrine: States: no symptoms reported All other Systems: No Change from Baseline Past Medical History (General) - Patient Medical History Hx Seizures: No Hx Stroke: No Hx Dementia: Yes Hx Asthma: No Hx of COPD: No Hx Cardiac Disorders: Yes - A fib Hx Congestive Heart Failure: No Hx Pacemaker: Yes Hx Hypertension: No Hx Thyroid Disease: Yes - Hypo Hx Diabetes: Yes Hx Gastroesophageal Reflux: Yes Hx Renal Disease: Yes - ESRD - Dialysis MWF Hx Cancer: Yes - Uterine,Ovarian,Breast Hx of HIV: No Hx Hepatitis C: No Hx MRSA: No - Vaccination History Hx Tetanus, Diphtheria Vaccination: No Hx Influenza Vaccination: Yes Hx Pneumococcal Vaccination: Yes Immunizations Comment: unknown - Social History Hx Tobacco Use: No Hx Chewing Tobacco Use: No Hx Alcohol Use: No Hx Substance Use: No Hx Substance Use Treatment: No Hx Depression: No Feels Threatened In Home Enviroment: No Feels Threatened In a Relationship: No Hx Physical Abuse: No Hx Emotional Abuse: No Hx Suspected Abuse: No - Activities of Daily Living Detention/Assisted Living (if applicable):: [facility] (if applicable):: None - Female History Patient is a Female of Child Bearing Age (10 -59 yrs old): No Patient : No - Triage Comment ED Triage Comment: Covid 19 Family Medical History - Family History Mother Family History: Unknown Living Status: Hx Family Stroke: Yes - several family members Hx Family Diabetes: Yes - several family members Physical Exam - Physical Exam General Appearance: Alert, Comfortable, No apparent distress Eye Exam: bilateral normal Ears, Nose, Throat: normal pharynx Neck: non-tender, supple Respiratory: no respiratory distress, no accessory muscle use, other - Chronic dry rales. Cardiovascular/Chest: no edema, other - Regular rate Peripheral Pulses: radial,right: 2+, radial,left: 2+ Gastrointestinal/Abdominal: soft, other - Mild epigastric tenderness to palpation. No rebound or peritoneal signs. No definite palpable mass. 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 Skin Exam: normal color Comments: Vital Signs - 24 hr 05/17/20 05/17/20 00:01 00:05 Temperature 97.3 F L Pulse Rate [ 62 69 tele] Respiratory 18 Rate Blood Pressure 162/92 [Right Arm] O2 Sat by Pulse 100 Oximetry Progress - Progress Progress: 05/17/20 01:31 The patient is a 80-year-old female presented emergency room after an episode of vomiting. This is most likely due to gastritis caused by recent medication changes including the addition of Eliquis required for treatment of her coronavirus. The patient is going to be written for prescriptions for Zofran for as needed use along with a couple of weeks of Carafate and a month of Pepcid. She needs to maintain a bland diet. She needs to keep well-hydrated. She needs to keep follow-up for her dialysis. She also needs he follow-up with her primary care doctor. ER warnings are given. [email or web address] [id number] - Results/Orders Results/Orders: Chest x-ray shows chronic interstitial changes. 2 view abdomen shows no evidence of any obstruction, ileus or free air. EKG shows what appears to be a paced atrial rhythm. 62 bpm. Borderline left axis deviation. Chronic right bundle branch block. Nonspecific T wave changes. None of these findings are actually new. Prolonged QT interval. EKG is consistent with previous. Laboratory Tests 05/17/20 05/17/20 00:26 00:26 WBC 7.3 RBC 2.93 L Hgb 10.3 L Hct 30.5 L MCV 104.2 H MCH 35.1 H MCHC 33.7 RDW 18.2 H Plt Count 142 MPV 8.3 Absolute Neuts (auto) 4.30 Absolute Lymphs (auto) 2.10 Absolute Monos (auto) 0.60 Absolute Eos (auto) 0.20 Absolute Basos (auto) 0.10 Neutrophils % 58.8 Lymphocytes % 28.0 Monocytes % 8.5 Eosinophils % 2.9 Basophils % 1.8 Sodium 142 Potassium 4.0 Chloride 98 L Carbon Dioxide 35 H Anion Gap 13.0 BUN 28 H Creatinine 4.43 H BUN/Creatinine Ratio 6.3 L Random Glucose 165 H Serum Osmolality 292.3 Calcium 8.6 Total Bilirubin 0.6 AST 45 H ALT 20 Alkaline Phosphatase 105 Creatine Kinase 26 CK-MB (CK-2) 1.0 CK-MB (CK-2) % Not Reportable Troponin I 0.03 B-Natriuretic Peptide 911.0 H* Serum Total Protein 7.2 Albumin 3.3 Globulin 3.9 H Albumin/Globulin Ratio 0.8 L Amylase 87 Lipase 37 Departure - Departure Clinical Impression: Acute gastritis without bleeding Qualifiers: Gastritis type: unspecified gastritis Qualified Code(s): K29.00 - Acute gastritis without bleeding Disposition: Discharge to SNF Condition: Fair Departure Forms: ED Discharge - Pt. Copy, Patient Portal Self Enrollment Diet: bland diet Activity: increase activity as tolerated Referrals: Darrel Marroquin III, MD [Primary Care Provider] - 1-2 Weeks Prescriptions: Ondansetron Odt [Zofran ODT] 4 mg PO Q8HR PRN #5 tab PRN Reason: Nausea--Moderate Sucralfate Tab [Carafate Tab] 1 gm PO QID #60 tab Famotidine 20 mg PO DAILY #30 tab Home Medications: Ambulatory Orders Citalopram Hydrobromide [Celexa] 40 mg PO BEDTIME 07/05/16 Cyclobenzaprine HCl [Flexeril] 5 mg PO BID PRN 07/05/16 Docusate Sodium 100 mg PO BID 07/05/16 Insulin Detemir [Levemir Pen] 20 unit SUBCU BID 07/05/16 Ondansetron [Ondansetron Odt] 4 mg PO Q4HR PRN 07/05/16 Cyanocobalamin [Vitamin B12] 1,000 mcg IM MONTHLY 07/06/16 Sevelamer Carbonate [Renvela] 2,400 mg PO TIDFD 10/24/16 Liraglutide [Victoza] 0.6 units SC DAILY 09/19/17 Memantine HCl [Namenda Xr] 28 mg PO DAILY 09/19/17 Glucagon HCl (Diagnostic) [Glucagon] 1 mg IJ PRN PRN 10/02/17 Pantoprazole Sodium 40 mg PO DAILY 11/03/17 Apixaban [Eliquis] 2.5 mg PO BID 09/07/18 Atorvastatin Calcium [Lipitor] 10 mg PO BEDTIME 09/07/18 Doxepin HCl 100 mg PO BEDTIME 09/07/18 Acetaminophen W/ Codeine [Tylenol W/ CODEINE #3] 1 ea PO Q6H PRN 01/02/19 Ergocalciferol [Drisdol] 50,000 unit PO MONTHLY 01/02/19 Montelukast [Singulair] 10 mg PO BEDTIME 01/02/19 Triamcinolone Acetonide (Topic [Triamcinolone Acetonide] 0.025 % EX PRN 04/19/19 Apoaequorin [Prevagen] 10 mg PO DAILY 06/16/19 Human Insulin Aspart [Novolog] 3 unit SUBCU AC 06/16/19 Loratadine [Claritin] 10 mg PO DAILY 06/16/19 Melatonin 5 mg PO BEDTIME 06/16/19 Amiodarone HCl [Amiodarone Hydrochloride] 100 mg PO DAILY 04/06/20 Ascorbic Acid [Vitamin C] 500 mg PO DAILY 04/06/20 Folic Acid 1 mg PO DAILY 04/06/20 Metoprolol Tartrate 25 mg PO BID 04/06/20 Multiple Vitamins W/ Minerals [Multivitamin Adults] 1 tab PO DAILY 04/06/20 Mupirocin 2 % Oint [Bactroban Oint] 1 applic TOP PRN 04/06/20 Nystatin (Topical) [Nystatin] 100,000 unit EX PRN 04/06/20 Famotidine 20 mg PO DAILY #30 tab 05/17/20 Ondansetron Odt [Zofran ODT] 4 mg PO Q8HR PRN #5 tab 05/17/20 Sucralfate Tab [Carafate Tab] 1 gm PO QID #60 tab 05/17/20 Additional Instructions: The patient is a 80-year-old female presented emergency room after an episode of vomiting. This is most likely due to gastritis caused by recent medication changes including the addition of Eliquis required for treatment of her coronavirus. The patient is going to be written for prescriptions for Zofran for as needed use along with a couple of weeks of Carafate and a month of Pepcid. She needs to maintain a bland diet. She needs to keep well-hydrated. She needs to keep follow-up for her dialysis. She also needs he follow-up with her primary care doctor. ER warnings are given.
[2020-05-17 05:17] VITALS: BP 148/71
== END 2020-05-17 05:05 ==
LOC: ER 23:59
DX: K29.00 Acute gastritis without bleeding (principal); U07.1 COVID-19; R07.9 Chest pain, unspecified; I45.10 Unspecified right bundle-branch block; F03.90 Unspecified dementia, unspecified severity, without behavioral disturbance, psychotic disturbance, mood disturbance, and anxiety; I48.91 Unspecified atrial fibrillation; E03.9 Hypothyroidism, unspecified; K21.9 Gastro-esophageal reflux disease without esophagitis; N18.6 End stage renal disease; E11.22 Type 2 diabetes mellitus with diabetic chronic kidney disease; Z79.01 Long term (current) use of anticoagulants; Z99.2 Dependence on renal dialysis; Z95.0 Presence of cardiac pacemaker; Z85.3 Personal history of malignant neoplasm of breast; Z85.42 Personal history of malignant neoplasm of other parts of uterus; Z85.43 Personal history of malignant neoplasm of ovary
CPT/HCPCS: 74019; 80053; 82150; 82550; 82553; 83690; 83880; 84484; 85025; 93005; Q0169

== ENCOUNTER 2020-07-20 20:36 | Emergency (ER) | payer OTHER ==
[2020-07-20 21:18] VITALS: TEMP 97.8
--- NOTE | 2020-07-20 21:43 | CT ---
EXAM: Head CLINICAL INDICATION: Patient fell, right forehead hematoma COMPARISON: There is no previous study for comparison. TECHNIQUE: The CT scan was done using contiguous axial 2.5 mm sections through the brain. This exam was performed according to our departmental dose-optimization program, which includes automated exposure control, adjustment of the mA and/or kV according to patient size and/or use of iterative reconstruction technique. FINDINGS: There is no midline shift, mass effect, or extraaxial fluid collection. There is no evidence of acute intracranial hemorrhage, mass lesion, or cerebral edema. Mild diffuse cerebral atrophy is noted. Bone window images reveal no evidence of a skull fracture. There is soft tissue swelling and subcutaneous hematoma of the right forehead. IMPRESSION: No evidence of an acute intracranial process. Right frontal soft tissue swelling and subcutaneous hematoma. Electronically signed by: Kaden Davila MD 07/20/2020 9:41 PM CDT
--- NOTE | 2020-07-20 21:44 | CT ---
EXAM: CT scan Cervical Spine CLINICAL INDICATION: Trauma, pain COMPARISON: 01/02/2019 TECHNIQUE: CT scan of the cervical spine was done using contiguous axial 2.5 mm sections through the cervical spine with sagittal and coronal reconstructions. This exam was performed according to our departmental dose-optimization program, which includes automated exposure control, adjustment of the mA and/or kV according to patient size and/or use of iterative reconstruction technique. Findings: There is no fracture or subluxation. The prevertebral soft tissues are normal. The bilateral facet joint alignment is normal. The osseous structures appear intact and unremarkable. IMPRESSION: No evidence of acute traumatic injury. Electronically signed by: Kaden Davila MD 07/20/2020 9:42 PM CDT
--- NOTE | 2020-07-20 22:02 | RAD ---
XR HIP 2 OR MORE VIEWS, XR PELVIS 1-2 VIEWS CLINICAL STATEMENT: FELL. LEFT HIP PAIN AND TTP. COMPARISON: 04/06/2020. FINDINGS: Bony alignment is anatomic. There is no fracture or dislocation. The soft tissues are unremarkable. Mild bilateral hip degenerative changes. Mild well corticated deformity of the left superior and inferior pubic rami, unchanged from prior study consistent with chronic fracture. IMPRESSION: No acute fracture. No significant change. Electronically signed by: All Mckenzie MD 07/20/2020 10:01 PM CDT
--- NOTE | 2020-07-20 22:03 | RAD ---
XR KNEE 1-2 VIEWS CLINICAL STATEMENT: FELL. RIGHT KNEE PAIN AND TTP. COMPARISON: 03/11/2019 FINDINGS: Bony alignment is anatomic. There is no fracture or dislocation. The soft tissues are unremarkable. Status post right total knee arthroplasty. No significant joint effusion. IMPRESSION: No acute fracture. Electronically signed by: All Mckenzie MD 07/20/2020 10:01 PM CDT
--- NOTE | 2020-07-20 22:04 | RAD ---
XR SHOULDER 2 OR MORE VIEWS CLINICAL STATEMENT: FELL. LEFT ANTERIOR SHOULDER PAIN AND TTP. COMPARISON: 09/19/2017 FINDINGS: Bony alignment is anatomic. There is no fracture or dislocation. The soft tissues are unremarkable. Vascular stents are again noted in place. Moderate glenohumeral degenerative changes, similar to prior study. IMPRESSION: No fracture. Moderate left shoulder degenerative changes. Electronically signed by: All Mckenzie MD 07/20/2020 10:02 PM CDT
[2020-07-20] MEDS ORDERED: HYDROmorphone HCL INJ 2 MG/ML VIAL IM ONE (22:21)
[2020-07-20 22:22] VITALS: O2SAT 96
--- NOTE | 2020-07-20 22:26 | ED.PDOC ---
History of Present Illness - General Chief Complaint: Trauma Stated Complaint: fell Time Seen by Provider: 07/20/20 20:56 Source: patient Exam Limitations: no limitations - History of Present Illness Initial Comments: PT WAS ON THE COMMODE. SHE WENT TO STAND UP AND TRANSITION AFTERWARD AND LOST HER BALANCE AND FELL. SHE CLARIFIES THAT SHE FELL BECAUSE SHE SLIPPED/TRIPPED/LOST HER FOOTING. NO LIGHT HEADEDNESS. NO LOC. NO CP. NO SOB. NO ABD PAIN. SHE HIT HER HEAD AND LANDED ON HER LEFT SIDE. A RESULT, SHE HAS PAIN IN HER L NECK, HAS A HEMATOMA ON R FOREHEAD, PAIN IN L ANTERIOR SHOULDER, L HIP, AND RIGHT KNEE. TAKES ELIQUIS FOR H/O A FIB. Timing/Duration: 1 hour Severity: moderate Improving Factors: nothing Worsening Factors: movement Associated Symptoms: denies symptoms Allergies/Adverse Reactions: Allergies NO KNOWN ALLERGY Allergy (Verified 06/16/19 08:50) Home Medications: Ambulatory Orders Citalopram Hydrobromide [Celexa] 40 mg PO BEDTIME 07/05/16 Cyclobenzaprine HCl [Flexeril] 5 mg PO BID PRN 07/05/16 Docusate Sodium 100 mg PO BID 07/05/16 Insulin Detemir [Levemir Pen] 20 unit SUBCU BID 07/05/16 Ondansetron [Ondansetron Odt] 4 mg PO Q4HR PRN 07/05/16 Cyanocobalamin [Vitamin B12] 1,000 mcg IM MONTHLY 07/06/16 Sevelamer Carbonate [Renvela] 2,400 mg PO TIDFD 10/24/16 Liraglutide [Victoza] 0.6 units SC DAILY 09/19/17 Memantine HCl [Namenda Xr] 28 mg PO DAILY 09/19/17 Glucagon HCl (Diagnostic) [Glucagon] 1 mg IJ PRN PRN 10/02/17 Pantoprazole Sodium 40 mg PO DAILY 11/03/17 Apixaban [Eliquis] 2.5 mg PO BID 09/07/18 Atorvastatin Calcium [Lipitor] 10 mg PO BEDTIME 09/07/18 Doxepin HCl 100 mg PO BEDTIME 09/07/18 Acetaminophen W/ Codeine [Tylenol W/ CODEINE #3] 1 ea PO Q6H PRN 01/02/19 Ergocalciferol [Drisdol] 50,000 unit PO MONTHLY 01/02/19 Montelukast [Singulair] 10 mg PO BEDTIME 01/02/19 Triamcinolone Acetonide (Topic [Triamcinolone Acetonide] 0.025 % EX PRN 01/31/19 Apoaequorin [Prevagen] 10 mg PO DAILY 06/16/19 Human Insulin Aspart [Novolog] 3 unit SUBCU AC 06/16/19 Loratadine [Claritin] 10 mg PO DAILY 06/16/19 Melatonin 5 mg PO BEDTIME 06/16/19 Amiodarone HCl [Amiodarone Hydrochloride] 100 mg PO DAILY 04/06/20 Ascorbic Acid [Vitamin C] 500 mg PO DAILY 04/06/20 Folic Acid 1 mg PO DAILY 04/06/20 Metoprolol Tartrate 25 mg PO BID 04/06/20 Multiple Vitamins W/ Minerals [Multivitamin Adults] 1 tab PO DAILY 04/06/20 Mupirocin 2 % Oint [Bactroban Oint] 1 applic TOP PRN 04/06/20 Nystatin (Topical) [Nystatin] 100,000 unit EX PRN 04/06/20 Famotidine 20 mg PO DAILY #30 tab 05/17/20 Ondansetron Odt [Zofran ODT] 4 mg PO Q8HR PRN #5 tab 05/17/20 Sucralfate Tab [Carafate Tab] 1 gm PO QID #60 tab 05/17/20 Review of Systems - Review of Systems Constitutional: Denies: chills, fever, malaise, weakness EENTM: Denies: eye pain, ear pain, nose pain, mouth pain Respiratory: Denies: cough, short of breath Cardiology: Denies: chest pain, palpitations Gastrointestinal/Abdominal: Denies: abdominal pain, nausea Genitourinary: Denies: dysuria, frequency Musculoskeletal: States: joint pain, neck pain. Denies: back pain Skin: States: other - HEMATOMA ON R FOREHEAD. Neurological: Denies: numbness, paresthesia, weakness Endocrine: Denies: intolerance to cold, intolerance to heat Hematologic/Lymphatic: Denies: easy bleeding, easy bruising All other Systems: Reviewed and Negative Past Medical History (General) - Patient Medical History Hx Seizures: No Hx Stroke: No Hx Dementia: Yes Hx Asthma: No Hx of COPD: No Hx Cardiac Disorders: Yes - A fib Hx Congestive Heart Failure: No Hx Pacemaker: Yes Hx Hypertension: No Hx Thyroid Disease: Yes - Hypo Hx Diabetes: Yes Hx Gastroesophageal Reflux: Yes Hx Renal Disease: Yes - ESRD - Dialysis MWF Hx Cancer: Yes - Uterine,Ovarian,Breast Hx of HIV: No Hx Hepatitis C: No Hx MRSA: No Surgical History: Hysterectomy - Vaccination History Hx Tetanus, Diphtheria Vaccination: Yes Hx Influenza Vaccination: Yes Hx Pneumococcal Vaccination: Yes Immunizations Up to Date: Yes - Social History Hx Tobacco Use: No Hx Chewing Tobacco Use: No Hx Alcohol Use: No Hx Substance Use: No Hx Substance Use Treatment: No Hx Depression: Yes Feels Threatened In Home Enviroment: No Feels Threatened In a Relationship: No Hx Physical Abuse: No Hx Emotional Abuse: No Hx Suspected Abuse: No - Activities of Daily Living Fpc/Assisted Living (if applicable):: [facility] (if applicable):: None - Female History Patient is a Female of Child Bearing Age (10 -59 yrs old): No Patient : No Family Medical History - Family History Mother Family History: Unknown Living Status: Hx Family Stroke: Yes - several family members Hx Family Diabetes: Yes - several family members Physical Exam - Physical Exam General Appearance: Alert, Well Nourished Eye Exam: bilateral normal Ears, Nose, Throat: hearing grossly normal, normal pharynx, other - R FOREHEAD HEMATOMA 6X6 CM. Neck: limited range of motion - D/T PAIN IN L PARASPINOUS., tender lateral - L PARASPINOUS TTP. Respiratory: chest non-tender, lungs clear Cardiovascular/Chest: normal peripheral pulses, no murmur Peripheral Pulses: radial,right: 2+, radial,left: 2+ Gastrointestinal/Abdominal: normal bowel sounds, non tender, soft Rectal Exam: deferred Back Exam: no CVA tenderness, no vertebral tenderness Extremity: other - L SHOULDER, L HIP, R KNEE TTP AND PAIN WITH ROM. Neurologic: alert, normal mood/affect Skin Exam: normal color, warm/dry Lymphatic: no adenopathy Progress - Results/Orders Results/Orders: IMAGING NEG FOR ACUTE FRX OR ABNORMALITIES (CT HEAD, CT C-SPINE, XRAY L SHOULDER, L HIP, PELVIS, R KNEE). POS CONTUSIONS. POS R SCALP SUPERFICIAL HEMATOMA. PT EXPRESSES SHE IS APPROPRIATELY PAINFUL IN ALL DESCRIBED AREAS, THUS GAVE PAIN MED. SAFE FOR TRANSFER BACK TO SNF. - EKG/XRAY/CT CT Ordered: Yes Departure - Departure Clinical Impression: Traumatic hematoma of forehead Qualifiers: Encounter type: initial encounter Qualified Code(s): S00.83XA - Contusion of other part of head, initial encounter Contusion of left shoulder Qualifiers: Encounter type: initial encounter Qualified Code(s): S40.012A - Contusion of left shoulder, initial encounter Contusion of left hip Qualifiers: Encounter type: initial encounter Qualified Code(s): S70.02XA - Contusion of left hip, initial encounter Contusion of right knee Qualifiers: Encounter type: initial encounter Qualified Code(s): S80.01XA - Contusion of right knee, initial encounter Disposition: Discharge to SNF Condition: Good Departure Forms: ED Discharge - Pt. Copy, Patient Portal Self Enrollment Instructions: DI for Trauma, Contusion (DC) Diet: resume usual diet Activity: increase activity as tolerated Referrals: Darrel Marroquin III, MD [Primary Care Provider] - 1-2 Weeks Home Medications: Ambulatory Orders Citalopram Hydrobromide [Celexa] 40 mg PO BEDTIME 07/05/16 Cyclobenzaprine HCl [Flexeril] 5 mg PO BID PRN 07/05/16 Docusate Sodium 100 mg PO BID 07/05/16 Insulin Detemir [Levemir Pen] 20 unit SUBCU BID 07/05/16 Ondansetron [Ondansetron Odt] 4 mg PO Q4HR PRN 07/05/16 Cyanocobalamin [Vitamin B12] 1,000 mcg IM MONTHLY 07/06/16 Sevelamer Carbonate [Renvela] 2,400 mg PO TIDFD 10/24/16 Liraglutide [Victoza] 0.6 units SC DAILY 09/19/17 Memantine HCl [Namenda Xr] 28 mg PO DAILY 09/19/17 Glucagon HCl (Diagnostic) [Glucagon] 1 mg IJ PRN PRN 10/02/17 Pantoprazole Sodium 40 mg PO DAILY 11/03/17 Apixaban [Eliquis] 2.5 mg PO BID 09/07/18 Atorvastatin Calcium [Lipitor] 10 mg PO BEDTIME 09/07/18 Doxepin HCl 100 mg PO BEDTIME 09/07/18 Acetaminophen W/ Codeine [Tylenol W/ CODEINE #3] 1 ea PO Q6H PRN 01/02/19 Ergocalciferol [Drisdol] 50,000 unit PO MONTHLY 01/02/19 Montelukast [Singulair] 10 mg PO BEDTIME 01/02/19 Triamcinolone Acetonide (Topic [Triamcinolone Acetonide] 0.025 % EX PRN 01/31/19 Apoaequorin [Prevagen] 10 mg PO DAILY 06/16/19 Human Insulin Aspart [Novolog] 3 unit SUBCU AC 06/16/19 Loratadine [Claritin] 10 mg PO DAILY 06/16/19 Melatonin 5 mg PO BEDTIME 06/16/19 Amiodarone HCl [Amiodarone Hydrochloride] 100 mg PO DAILY 04/06/20 Ascorbic Acid [Vitamin C] 500 mg PO DAILY 04/06/20 Folic Acid 1 mg PO DAILY 04/06/20 Metoprolol Tartrate 25 mg PO BID 04/06/20 Multiple Vitamins W/ Minerals [Multivitamin Adults] 1 tab PO DAILY 04/06/20 Mupirocin 2 % Oint [Bactroban Oint] 1 applic TOP PRN 04/06/20 Nystatin (Topical) [Nystatin] 100,000 unit EX PRN 04/06/20 Famotidine 20 mg PO DAILY #30 tab 05/17/20 Ondansetron Odt [Zofran ODT] 4 mg PO Q8HR PRN #5 tab 05/17/20 Sucralfate Tab [Carafate Tab] 1 gm PO QID #60 tab 05/17/20
[2020-07-20 22:50] VITALS: BP 102/78
== END 2020-07-20 22:50 ==
LOC: ER 20:36
DX: S00.83XA Contusion of other part of head, initial encounter (principal); S40.012A Contusion of left shoulder, initial encounter; S70.02XA Contusion of left hip, initial encounter; S80.01XA Contusion of right knee, initial encounter; E11.22 Type 2 diabetes mellitus with diabetic chronic kidney disease; N18.6 End stage renal disease; Z99.2 Dependence on renal dialysis; K21.9 Gastro-esophageal reflux disease without esophagitis; I48.91 Unspecified atrial fibrillation; F03.90 Unspecified dementia, unspecified severity, without behavioral disturbance, psychotic disturbance, mood disturbance, and anxiety; Z85.3 Personal history of malignant neoplasm of breast; Z85.43 Personal history of malignant neoplasm of ovary; Z85.42 Personal history of malignant neoplasm of other parts of uterus; Z79.4 Long term (current) use of insulin; Z79.899 Other long term (current) drug therapy; Z79.01 Long term (current) use of anticoagulants; W18.12XA Fall from or off toilet with subsequent striking against object, initial encounter; Y92.121 Bathroom in nursing home as the place of occurrence of the external cause
CPT/HCPCS: 36415; 70450; 72125; 72170; 73030; 73502; 73560; 85610; 85730; J1170

== ENCOUNTER 2020-10-18 15:46 | Emergency (ER) | payer MEDICARE, OTHER ==
[2020-10-18 16:03] VITALS: TEMP 98.3
--- NOTE | 2020-10-18 16:56 | ED.PDOC ---
History of Present Illness - General Chief Complaint: Abdominal Pain Stated Complaint: lower right abdominal pain Time Seen by Provider: 10/18/20 15:52 - History of Present Illness Initial Comments: RLQ PAIN SINCE O700 TODAY, PROGRESSIVELY WORSE THRU THE DAY, DENIES N/V/D. Quality: moderate Associated Symptoms: denies symptoms Review of Systems - Review of Systems Constitutional: States: no symptoms reported EENTM: States: no symptoms reported Respiratory: States: no symptoms reported Cardiology: States: no symptoms reported Gastrointestinal/Abdominal: States: see HPI. Denies: constipation, diarrhea, nausea, vomiting Genitourinary: States: no symptoms reported Musculoskeletal: States: no symptoms reported Skin: States: no symptoms reported Neurological: States: no symptoms reported Past Medical History (General) - Patient Medical History Hx Seizures: No Hx Stroke: No Hx Dementia: Yes Hx Asthma: No Hx of COPD: No Hx Cardiac Disorders: Yes - A fib Hx Congestive Heart Failure: No Hx Pacemaker: Yes Hx Hypertension: No Hx Thyroid Disease: Yes - Hypo Hx Diabetes: Yes Hx Gastroesophageal Reflux: Yes Hx Renal Disease: Yes - ESRD - Dialysis MWF Hx Cancer: Yes - Uterine,Ovarian,Breast Hx of HIV: No Hx Hepatitis C: No Hx MRSA: No - Vaccination History Hx Tetanus, Diphtheria Vaccination: Yes Hx Influenza Vaccination: Yes Hx Pneumococcal Vaccination: Yes - Social History Hx Tobacco Use: No Hx Chewing Tobacco Use: No Hx Alcohol Use: No Hx Substance Use: No Hx Substance Use Treatment: No Hx Depression: Yes Hx Physical Abuse: No Hx Emotional Abuse: No Hx Suspected Abuse: No - Activities of Daily Living Correction/Assisted Living (if applicable):: [facility] - Female History Patient : No Family Medical History - Family History Mother Family History: Unknown Living Status: Hx Family Stroke: Yes - several family members Hx Family Diabetes: Yes - several family members Physical Exam - Physical Exam General Appearance: Alert, Obese, Well Developed, Well Groomed, Well Hydrated, Well Nourished Eyes, Ears, Nose, Throat Exam: PERRL/EOMI, normal ENT inspection, TMs normal, pharynx normal Neck: non-tender, full range of motion, supple, normal inspection Respiratory: chest non-tender, lungs clear, normal breath sounds, no respiratory distress, no accessory muscle use Cardiovascular/Chest: normal peripheral pulses, regular rate, rhythm, no edema, no gallop Progress - EKG/XRAY/CT CT Ordered: Yes CT Interpretation Call Back: No Departure - Departure Clinical Impression: Cholelithiasis Qualifiers: Cholelithiasis location: gallbladder Cholecystitis presence: without cholecystitis Biliary obstruction: without biliary obstruction Qualified Code(s): K80.20 - Calculus of gallbladder without cholecystitis without obstruction Time of Disposition: 18:25 Disposition: Discharge to Home or Self Care Condition: Good Departure Forms: ED Discharge - Pt. Copy, Patient Portal Self Enrollment Instructions: DI for Abdominal Pain-Adult, Gallstones Referrals: TARIQ MCPHERSON [Primary Care Provider] - 1-2 Weeks Jose Mathew MD [Active Staff] - 1-2 Weeks Prescriptions: Tramadol HCl [Ultram] 50 mg PO Q4H PRN #20 tab PRN Reason: Pain Home Medications: Ambulatory Orders Citalopram Hydrobromide [Celexa] 40 mg PO BEDTIME 07/05/16 Cyclobenzaprine HCl [Flexeril] 5 mg PO BID PRN 07/05/16 Docusate Sodium 100 mg PO BID 07/05/16 Insulin Detemir [Levemir Pen] 20 unit SUBCU BID 07/05/16 Ondansetron [Ondansetron Odt] 4 mg PO Q4HR PRN 07/05/16 Cyanocobalamin [Vitamin B12] 1,000 mcg IM MONTHLY 07/06/16 Sevelamer Carbonate [Renvela] 2,400 mg PO TIDFD 10/24/16 Liraglutide [Victoza] 0.6 units SC DAILY 09/19/17 Memantine HCl [Namenda Xr] 28 mg PO DAILY 09/19/17 Glucagon HCl (Diagnostic) [Glucagon] 1 mg IJ PRN PRN 10/02/17 Pantoprazole Sodium 40 mg PO DAILY 11/03/17 Apixaban [Eliquis] 2.5 mg PO BID 09/07/18 Atorvastatin Calcium [Lipitor] 10 mg PO BEDTIME 09/07/18 Doxepin HCl 100 mg PO BEDTIME 09/07/18 Acetaminophen W/ Codeine [Tylenol W/ CODEINE #3] 1 ea PO Q6H PRN 01/02/19 Ergocalciferol [Drisdol] 50,000 unit PO MONTHLY 01/02/19 Montelukast [Singulair] 10 mg PO BEDTIME 01/02/19 Triamcinolone Acetonide (Topic [Triamcinolone Acetonide] 0.025 % EX PRN 01/31/19 Apoaequorin [Prevagen] 10 mg PO DAILY 06/16/19 Human Insulin Aspart [Novolog] 3 unit SUBCU AC 06/16/19 Loratadine [Claritin] 10 mg PO DAILY 06/16/19 Melatonin 5 mg PO BEDTIME 06/16/19 Amiodarone HCl [Amiodarone Hydrochloride] 100 mg PO DAILY 04/06/20 Ascorbic Acid [Vitamin C] 500 mg PO DAILY 04/06/20 Folic Acid 1 mg PO DAILY 04/06/20 Metoprolol Tartrate 25 mg PO BID 04/06/20 Multiple Vitamins W/ Minerals [Multivitamin Adults] 1 tab PO DAILY 04/06/20 Mupirocin 2 % Oint [Bactroban Oint] 1 applic TOP PRN 04/06/20 Nystatin (Topical) [Nystatin] 100,000 unit EX PRN 04/06/20 Famotidine 20 mg PO DAILY #30 tab 05/17/20 Ondansetron Odt [Zofran ODT] 4 mg PO Q8HR PRN #5 tab 05/17/20 Sucralfate Tab [Carafate Tab] 1 gm PO QID #60 tab 05/17/20 Tramadol HCl [Ultram] 50 mg PO Q4H PRN #20 tab 10/18/20 Additional Instructions: RECOMMENBD FOLLOW UP WITH GENERAL SURGERY.
--- NOTE | 2020-10-18 17:02 | RAD ---
EXAM DESCRIPTION: Chest,1 View CLINICAL HISTORY: Abdominal pain COMPARISON: Chest radiograph dated April 06, 2020 TECHNIQUE: One view radiograph of the chest FINDINGS: Redemonstrated right-sided cardiac pacer in similar position. Vascular stent in the left axillary region. Lung volumes are shallow with associated bronchovascular crowding. Calcific atherosclerosis of the aortic arch. Cardiac silhouette shows mild cardiomegaly and upper limits of normal central pulmonary vasculature. Linear opacity in the left mid lung may represent atelectasis versus infiltrate. Right lung shows no confluent infiltrates. Costophrenic angles are sharp. No pneumothorax. Degenerative changes of the left shoulder and thoracic spine. IMPRESSION: 1. Shallow lung volumes with associated bronchovascular crowding. 2. Mild cardiomegaly and upper limits of normal central pulmonary vasculature. No overt congestive heart failure. 3. Linear opacity left mid lung may represent atelectasis versus infiltrate. Electronically signed by: Darrel Sanabria MD 10/18/2020 5:00 PM [employer]
--- NOTE | 2020-10-18 18:00 | CT ---
EXAM DESCRIPTION: Abdomen/Pelvis w/Contrast CLINICAL HISTORY: RLQ PAIN COMPARISON: None Available TECHNIQUE: Contiguous axial images of the abdomen and pelvis were obtained followed by reconstruction images. This exam was performed according to our departmental dose-optimization program, which includes automated exposure control, adjustment of the mA and/or kV according to patient size and/or use of iterative reconstruction technique. FINDINGS: Linear opacities within the lungs may represent scar versus subsegmental atelectasis. There is atherosclerosis. There are pacer leads within the heart. There is a small left renal cyst. There is an anterior abdominal wall hernia containing bowel components. There is no bowel obstruction. Calcifications within the pelvis compatible with phleboliths. There is a small amount of nondependent air within the bladder which could be related to recent instrumentation. Increased attenuation within the dependent portion of the gallbladder may represent small gallstones. The liver, spleen, pancreas and kidneys are otherwise within normal limits. There is no hydronephrosis or renal stones. There is no free fluid in the abdomen or pelvis. There is no bowel obstruction. There is no stranding of the mesenteric fat to suggest an inflammatory response. The appendix was not visualized. There is no pericecal inflammation. Patient is status post vertebroplasty at the L3 vertebral body. Degenerative changes at the L2-L3 vertebral body compatible with an old deformity. IMPRESSION: Increased attenuation within the dependent portion of the gallbladder could represent gallstones. The gallbladder is otherwise unremarkable by CT criteria. Anterior abdominal wall hernia containing colonic components. There is no bowel obstruction. Electronically signed by: Slim Sims MD 10/18/2020 5:59 PM [employer]
[2020-10-18] MEDS: ACETAMINOPHEN 325 MG TAB PO ONE (18:47)
[2020-10-18] MEDS: ONDANSETRON ODT 8 MG TAB SL ONE (18:48)
[2020-10-18] MEDS: traMADol HCL 50 MG TAB PO ONE (18:48)
[2020-10-18 19:05] VITALS: BP 152/71; O2SAT 99
== END 2020-10-18 19:04 | disposition home or self-care (01) ==
LOC: ER 15:46
DX: K80.20 Calculus of gallbladder without cholecystitis without obstruction (principal); E03.9 Hypothyroidism, unspecified; E11.22 Type 2 diabetes mellitus with diabetic chronic kidney disease; N18.6 End stage renal disease; K21.9 Gastro-esophageal reflux disease without esophagitis; F32.9 Major depressive disorder, single episode, unspecified; I48.91 Unspecified atrial fibrillation; F03.90 Unspecified dementia, unspecified severity, without behavioral disturbance, psychotic disturbance, mood disturbance, and anxiety; Z99.2 Dependence on renal dialysis; Z85.3 Personal history of malignant neoplasm of breast; Z85.42 Personal history of malignant neoplasm of other parts of uterus; Z85.43 Personal history of malignant neoplasm of ovary; Z95.0 Presence of cardiac pacemaker

== ENCOUNTER → 2020-11-02 | Outpatient (CLI) | payer MEDICARE ==
--- NOTE | 2020-11-02 14:14 | US ---
EXAM DESCRIPTION: Gall Bladder: ULTRASOUND. CLINICAL HISTORY: ABDOMINAL PAIN COMPARISON: CT scan abdomen and pelvis October 18. TECHNIQUE: Transabdominal scanning: Armstrong-scale and Doppler modes.. Technically difficult study due to patient body habitus. FINDINGS: Gallbladder: Smaller than average, 6.7 mm echogenic object. No posterior shadowing. No fluid around the gallbladder. No wall thickening. 2.0 mm. Non-tender with transducer pressure. Common bile duct: caliber 3.7 mm within normal limits. Liver: normal echogenicity; contour liver capsule smooth where seen. No fluid around the liver. Intrahepatic biliary ducts normal caliber. Doppler hepatopedal flow portal vein.. Normal caliber portal vein:. 8.3 mm. Long axis right lobe 13.3 cm. Pancreas: Not well visualized. Duct not seen. Aorta: 1.65 cm normal caliber. Right kidney: long axis is 9.9 cm; volume 109.0 mL. Normal cortical echogenicity. Cortical thickness 8.2 mm smooth capsule. No echogenic stones or hydronephrosis.. IMPRESSION: 1. Limited study due to patient large body habitus. Gallbladder is smaller than normal with no wall thickening or fluid. Nontender with transducer pressure. 6.7 mm echogenic stone versus polyp. Normal caliber common bile duct. If gallbladder function is questionable, consider hepatobiliary imaging with gallbladder function test. 2. Liver normal echoes and normal size. Pancreas was not well visualized. No ascites. 3. Right kidney demonstrates moderate cortical thinning but normal echogenicity and no hydronephrosis. This may be related to aging. Normal caliber of the proximal abdominal aorta. Electronically signed by: Pedro Pan MD 11/02/2020 2:12 PM RN L AND D
== END ==
LOC: US 08:23
PROVIDERS: ATTEND Surgery
DX: R10.9 Unspecified abdominal pain (principal); K82.9 Disease of gallbladder, unspecified; N28.9 Disorder of kidney and ureter, unspecified

== ENCOUNTER 2020-11-03 14:25 | Emergency (ER) | payer MEDICARE ==
--- NOTE | 2020-11-03 14:31 | ED.PDOC ---
History of Present Illness - General Time Seen by Provider: 11/03/20 14:31 Source: patient Additional Information: PATIENT LIVES AT [facility], APPARENTLY FELL WHILE TRYING TO TRANSFER, SHE IS WHEELCHAIR BOUND. C/O PAIN IN LEFT ANKLE, LOW BACK AND RIGHT KNEE. - History of Present Illness Initial Comments: PATIENT FELL TRANSFERRING JUST PRIOR TO ADMIT C/O PAIN IN LEFT ANKLE, RIGHT KNEE, AND LOW BACK. Occurred: just prior to arrival Method of Injury: fell Improving Factors: nothing Worsening Factors: nothing Allergies/Adverse Reactions: Allergies NO KNOWN ALLERGY Allergy (Verified 10/18/20 16:11) Home Medications: Ambulatory Orders Citalopram Hydrobromide [Celexa] 40 mg PO BEDTIME 07/05/16 Docusate Sodium 100 mg PO BID 07/05/16 Insulin Detemir [Levemir Pen] 20 unit SUBCU BID 07/05/16 Ondansetron [Ondansetron Odt] 4 mg PO Q4HR PRN 07/05/16 Cyanocobalamin [Vitamin B12] 1,000 mcg IM MONTHLY 07/06/16 Sevelamer Carbonate [Renvela] 2,400 mg PO TIDFD 10/24/16 Memantine HCl [Namenda Xr] 28 mg PO DAILY 09/19/17 Glucagon HCl (Diagnostic) [Glucagon] 1 mg IJ PRN PRN 10/02/17 Pantoprazole Sodium 40 mg PO DAILY 11/03/17 Apixaban [Eliquis] 2.5 mg PO BID 09/07/18 Atorvastatin Calcium [Lipitor] 10 mg PO BEDTIME 09/07/18 Doxepin HCl 100 mg PO BEDTIME 09/07/18 Acetaminophen W/ Codeine [Tylenol W/ CODEINE #3] 1 ea PO Q6H PRN 01/02/19 Ergocalciferol [Drisdol] 50,000 unit PO MONTHLY 01/02/19 Montelukast [Singulair] 10 mg PO BEDTIME 01/02/19 Apoaequorin [Prevagen] 10 mg PO DAILY 06/16/19 Human Insulin Aspart [Novolog] 3 unit SUBCU AC 06/16/19 Loratadine [Claritin] 10 mg PO DAILY 06/16/19 Melatonin 5 mg PO BEDTIME 06/16/19 Amiodarone HCl [Amiodarone Hydrochloride] 100 mg PO DAILY 04/06/20 Ascorbic Acid [Vitamin C] 500 mg PO DAILY 04/06/20 Folic Acid 1 mg PO DAILY 04/06/20 Multiple Vitamins W/ Minerals [Multivitamin Adults] 1 tab PO DAILY 04/06/20 Nystatin (Topical) [Nystatin] 100,000 unit EX PRN 04/06/20 Famotidine 20 mg PO DAILY #30 tab 05/17/20 Ondansetron Odt [Zofran ODT] 4 mg PO Q8HR PRN #5 tab 05/17/20 Tramadol HCl [Ultram] 50 mg PO Q4H PRN #20 tab 10/18/20 Acetaminophen [Tylenol] 325 mg PO Q6H PRN 11/02/20 HYDROcodone 10MG/APAP 325MG [[place] 10/325] 1 ea PO Q4H PRN 11/02/20 Liraglutide [Victoza] 0.6 units SC DAILY 11/02/20 Memantine HCl [Namenda Xr] 28 mg PO DAILY 11/02/20 Metoprolol Succinate [Metoprolol Succinate ER] 25 mg PO DAILY 11/02/20 Review of Systems - Review of Systems Constitutional: States: no symptoms reported EENTM: States: no symptoms reported Respiratory: States: no symptoms reported Cardiology: States: no symptoms reported Gastrointestinal/Abdominal: States: no symptoms reported Genitourinary: States: no symptoms reported Musculoskeletal: States: see HPI Skin: States: no symptoms reported Neurological: States: no symptoms reported Past Medical History (General) - Patient Medical History Hx Seizures: No Hx Stroke: No Hx Dementia: Yes Hx Asthma: No Hx of COPD: No Hx Cardiac Disorders: Yes - A fib Hx Congestive Heart Failure: No Hx Pacemaker: Yes Hx Hypertension: No Hx Thyroid Disease: Yes - Hypo Hx Diabetes: Yes Hx Gastroesophageal Reflux: Yes Hx Renal Disease: Yes - ESRD - Dialysis MWF Hx Cancer: Yes - Uterine,Ovarian,Breast Hx of HIV: No Hx Hepatitis C: No Hx MRSA: No - Vaccination History Hx Tetanus, Diphtheria Vaccination: Yes Hx Influenza Vaccination: Yes Hx Pneumococcal Vaccination: Yes - Social History Hx Tobacco Use: No Hx Chewing Tobacco Use: No Hx Alcohol Use: No Hx Substance Use: No Hx Substance Use Treatment: No Hx Depression: Yes Hx Physical Abuse: No Hx Emotional Abuse: No Hx Suspected Abuse: No - Female History Patient : No Family Medical History - Family History Mother Family History: Unknown Living Status: Hx Family Stroke: Yes - several family members Hx Family Diabetes: Yes - several family members Physical Exam - Physical Exam General Appearance: Alert, Well Developed, Well Groomed, Well Hydrated, Well Nourished Cardiovascular/Respiratory: regular rate, rhythm Gastrointestinal/Abdominal: non-tender Back: normal inspection Thigh/Hip: normal inspection Leg: normal inspection Knee: normal inspection Ankle: soft tissue tenderness - RIGHT KNEE AND MEDIAL LEFT ANKLE, swelling - LEFT ANKLE AND MARKED SWELLING OF RIGHT KNEE. Foot: normal inspection Neuro/Tendon: normal sensation, normal motor functions Progress - Progress Progress: 11/03/20 18:[address] GARCIA, HE WANTS TO SPLINT AND FOLLOW UP AT HIS OFFICE TOMORROW. WILL CALL SON IN [place] AND UPDATE WELL. PATIENT COMFORTABLE AT THIS TIME. Departure - Departure Clinical Impression: Ankle fracture, left Qualifiers: Encounter type: initial encounter Fracture type: closed Qualified Code(s): S82.892A - Other fracture of left lower leg, initial encounter for closed fracture Contusion of knee, right Qualifiers: Encounter type: initial encounter Qualified Code(s): S80.01XA - Contusion of right knee, initial encounter Time of Disposition: 18:42 Disposition: Discharge to Home or Self Care Condition: Fair Instructions: Ankle Fracture Referrals: TARIQ MCPHERSON [Primary Care Provider] - 1-2 Weeks Home Medications: Ambulatory Orders Citalopram Hydrobromide [Celexa] 40 mg PO BEDTIME 07/05/16 Docusate Sodium 100 mg PO BID 07/05/16 Insulin Detemir [Levemir Pen] 20 unit SUBCU BID 07/05/16 Ondansetron [Ondansetron Odt] 4 mg PO Q4HR PRN 07/05/16 Cyanocobalamin [Vitamin B12] 1,000 mcg IM MONTHLY 07/06/16 Sevelamer Carbonate [Renvela] 2,400 mg PO TIDFD 10/24/16 Memantine HCl [Namenda Xr] 28 mg PO DAILY 09/19/17 Glucagon HCl (Diagnostic) [Glucagon] 1 mg IJ PRN PRN 10/02/17 Pantoprazole Sodium 40 mg PO DAILY 11/03/17 Apixaban [Eliquis] 2.5 mg PO BID 09/07/18 Atorvastatin Calcium [Lipitor] 10 mg PO BEDTIME 11/24/18 Doxepin HCl 100 mg PO BEDTIME 09/07/18 Acetaminophen W/ Codeine [Tylenol W/ CODEINE #3] 1 ea PO Q6H PRN 01/02/19 Ergocalciferol [Drisdol] 50,000 unit PO MONTHLY 01/02/19 Montelukast [Singulair] 10 mg PO BEDTIME 01/02/19 Apoaequorin [Prevagen] 10 mg PO DAILY 06/16/19 Human Insulin Aspart [Novolog] 3 unit SUBCU AC 06/16/19 Loratadine [Claritin] 10 mg PO DAILY 06/16/19 Melatonin 5 mg PO BEDTIME 06/16/19 Amiodarone HCl [Amiodarone Hydrochloride] 100 mg PO DAILY 04/06/20 Ascorbic Acid [Vitamin C] 500 mg PO DAILY 04/06/20 Folic Acid 1 mg PO DAILY 04/06/20 Multiple Vitamins W/ Minerals [Multivitamin Adults] 1 tab PO DAILY 04/06/20 Nystatin (Topical) [Nystatin] 100,000 unit EX PRN 04/06/20 Famotidine 20 mg PO DAILY #30 tab 05/17/20 Ondansetron Odt [Zofran ODT] 4 mg PO Q8HR PRN #5 tab 05/17/20 Tramadol HCl [Ultram] 50 mg PO Q4H PRN #20 tab 10/18/20 Acetaminophen [Tylenol] 325 mg PO Q6H PRN 11/02/20 HYDROcodone 10MG/APAP 325MG [[place] 10/325] 1 ea PO Q4H PRN 11/02/20 Liraglutide [Victoza] 0.6 units SC DAILY 11/02/20 Memantine HCl [Namenda Xr] 28 mg PO DAILY 11/02/20 Metoprolol Succinate [Metoprolol Succinate ER] 25 mg PO DAILY 11/02/20 Additional Instructions: CALL DR GARCIA'S OFFICE IN THE MORNING TO SCHEDULE FOLLOW UP FOR THIS WEEK, HE IS AWARE OF YOUR INJURIES AND EXPECTING THE CALL.
--- NOTE | 2020-11-03 15:48 | RAD ---
EXAM DESCRIPTION: Ankle,Left 3 Views CLINICAL HISTORY: TRAUMA COMPARISON: None. TECHNIQUE: 3 views left FINDINGS: An oblique nondisplaced fracture of the medial malleolus is observed. The fibula is intact. Ankle mortise appears intact. Plantar and Achilles enthesophytes are observed. A joint effusion is evident. Intertarsal arthritis is seen. IMPRESSION: An oblique nondisplaced fracture the medial malleolus is observed. Electronically signed by: Darrel Page MD 11/03/2020 3:46 PM [facility]
--- NOTE | 2020-11-03 15:58 | CT ---
EXAM DESCRIPTION: Lumbar Spine CLINICAL HISTORY: TRAUMA COMPARISON: None Available. TECHNIQUE: Transaxial images were obtained without intravenous contrast media. Sagittal and coronal reconstruction was performed. This exam was performed according to our departmental dose-optimization program, which includes automated exposure control, adjustment of the mA and/or kV according to patient size and/or use of iterative reconstruction technique. FINDINGS: There is there is posterior subluxation of L2 on L3. Fusion of the L2-3 level is noted . Prior vertebral body augmentation is observed at the L3 level.. Degenerative changes are observed in the sacroiliac joints and facet joints throughout the lower lumbar spine. A possible gallstone is observed in the gallbladder. No acute fracturing is detected. T12-L1: Posterior osteophytic ridge is observed at this level. The neural foramina are preserved. L1-2: Vacuum disc phenomena is observed at this level. There is minimal posterior subluxation of L1 on L2. A posterior osteophytic ridge is observed at this level. There is also ligamentous and facet joint hypertrophy resulting in a moderately severe spinal stenosis. L2-3: Obliteration of the disc is observed at this level. This may be the result of prior surgery or discitis. Bilateral neural foraminal narrowing is observed as result of facet joint arthritis. L3-4: Facet joint arthritis and hypertrophy are observed resulting in severe spinal stenosis. L4-5: Very mild anterior subluxation of L4 on L5 is observed. Facet joint arthritis is observed with a mild spinal stenosis. There is bilateral neural foraminal narrowing more pronounced on the left. L5-S1: Pronounced facet joint hypertrophy is observed at this level. No significant spinal stenosis is seen. Bilateral neural foraminal compromise is noted. IMPRESSION: Diffuse degenerative changes are observed as described above. No fracturing is detected. Electronically signed by: Darrel Page MD 11/03/2020 3:57 PM [facility]
--- NOTE | 2020-11-03 16:01 | RAD ---
EXAM DESCRIPTION: Knee,Right Complete CLINICAL HISTORY: TRAUMA COMPARISON: None. TECHNIQUE: 3 views right FINDINGS: A total knee arthroplasty is observed in place. A nondisplaced fracture is observed in the distal shaft of the medially above the arthroplasty. No hardware failure is seen. A small joint effusion is evident. Calcific atherosclerotic changes observed in the popliteal artery. IMPRESSION: A nondisplaced fracture of the distal shaft of the femur is observed immediately above the arthroplasty. Electronically signed by: Darrel Page MD 11/03/2020 3:59 PM [facility]
[2020-11-03] MEDS ORDERED: HYDROmorphone HCL INJ 2 MG/ML VIAL IV ONE (17:46)
--- NOTE | 2020-11-03 18:10 | CT ---
EXAM DESCRIPTION: CT Lower Extremity CLINICAL HISTORY: 80 years Female R/O DISTAL FEMUR FRACTURE. TECHNIQUE: Noncontrast axial images acquired through the right knee. Coronal and sagittal reformatted images, MIP images, and 3-D volume rendered images also provided. This CT exam was performed according to our departmental dose-optimization program, which includes one or more of the following dose reduction techniques: automated exposure control, adjustment of the mA and/or kV according to patient size, and/or use of iterative reconstruction technique. COMPARISON: Radiographs obtained earlier the same day FINDINGS: Patient again seen to be status post right total knee arthroplasty with patellar resurfacing. There is no visualized acute fracture, dislocation, or evidence of hardware loosening in the right knee. There is mild prepatellar soft tissue swelling. No suprapatellar joint effusion. No aggressive osseous lesion. Extensive atherosclerotic calcifications. IMPRESSION: Mild prepatellar soft tissue swelling. No other acute findings in the right knee. Prior arthroplasty. No joint effusion. Electronically signed by: Marimar Mckeon MD 11/03/2020 6:09 PM [facility]
[2020-11-03] MEDS ORDERED: ONDANSETRON INJ 4 MG/2 ML VIAL IV ONE (18:13)
--- NOTE | 2020-11-03 18:17 | CT ---
EXAM DESCRIPTION: CT Lower Extremity CLINICAL HISTORY: 80 years Female EVALUATE ANATOMY OF LEFT ANKLE FRACTURE TECHNIQUE: Noncontrast axial images acquired through the left ankle. Coronal and sagittal reformatted images, coronal MIP, and 3-D volume rendered images also provided This CT exam was performed according to our departmental dose-optimization program, which includes one or more of the following dose reduction techniques: automated exposure control, adjustment of the mA and/or kV according to patient size, and/or use of iterative reconstruction technique. COMPARISON: Ankle x-rays obtained earlier the same day FINDINGS: Again seen is an acute, nondisplaced, intra-articular fracture at the junction between the left tibial plafond and medial malleolus. No other acute fracture in the left ankle. No dislocation. The ankle mortise and talar dome appear preserved. No aggressive osseous lesion. Posterior calcaneal enthesophyte. Osteoporosis. Diffuse atherosclerosis. Soft tissue swelling medial and lateral to the ankle without soft tissue gas. IMPRESSION: Acute, nondisplaced, intra-articular fracture at the junction between the left tibial plafond and medial malleolus. No other acute left ankle fracture or subluxation. Recommend radiographs of the entire left tibia/fibula to exclude additional fractures. Electronically signed by: Marimar Mckeon MD 11/03/2020 6:15 PM [employer]
[2020-11-03 19:35] VITALS: TEMP 98.7; O2SAT 92
[2020-11-03 20:08] VITALS: BP 165/80
== END 2020-11-03 20:17 | disposition home or self-care (01) ==
LOC: ER 14:25
DX: S82.55XA Nondisplaced fracture of medial malleolus of left tibia, initial encounter for closed fracture (principal); S80.01XA Contusion of right knee, initial encounter; F32.9 Major depressive disorder, single episode, unspecified; N18.6 End stage renal disease; K21.9 Gastro-esophageal reflux disease without esophagitis; E11.22 Type 2 diabetes mellitus with diabetic chronic kidney disease; E03.9 Hypothyroidism, unspecified; I48.91 Unspecified atrial fibrillation; Z95.0 Presence of cardiac pacemaker; F03.90 Unspecified dementia, unspecified severity, without behavioral disturbance, psychotic disturbance, mood disturbance, and anxiety; Z79.01 Long term (current) use of anticoagulants; Z79.4 Long term (current) use of insulin; Z79.899 Other long term (current) drug therapy; Z99.3 Dependence on wheelchair; W18.39XA Other fall on same level, initial encounter; Y92.129 Unspecified place in nursing home as the place of occurrence of the external cause
CPT/HCPCS: 72131; 73562; 73610; 73700; J1170; J2405

== ENCOUNTER 2020-11-04 05:33 | Day surgery (SDC) | payer MEDICARE ==
[2020-11-04] MEDS ORDERED: LACTATED RINGERS 1,000 ML ONE (06:31)
[2020-11-04] MEDS ORDERED: ePHEDrine SULF 50 MG/ML ONE (07:00)
[2020-11-04] MEDS ORDERED: PROPOFOL 200 MG/20 ML VIAL IV ONE (07:00)
[2020-11-04] MEDS ORDERED: diphenhydrAMINE HCL 50 MG/ML VIAL ONE (07:00)
[2020-11-04] MEDS ORDERED: DEXAMETHASONE INJ 10 MG/ML VIAL ONE (07:00)
[2020-11-04] MEDS ORDERED: ONDANSETRON INJ 4 MG/2 ML VIAL ONE (07:00)
[2020-11-04] MEDS ORDERED: ceFAZolin SODIUM 1 GM VIAL ONE (07:00)
[2020-11-04] MEDS ORDERED: LIDOCAINE 1% 10 ML VIAL INJ ONE (07:00)
[2020-11-04] MEDS ORDERED: BUPIVACAINE 0.25% W/EPI 50 ML VIAL INJ ONE (08:01)
[2020-11-04] MEDS ORDERED: fentaNYL CITRATE INJ 50 MCG/ML 2 ML AMP ONE (11:31)
[2020-11-04] MEDS ORDERED: HYDROcodone 5MG/APAP 325MG 1 EA TAB PO ONE (13:16)
[2020-11-04] MEDS ORDERED: HYDROcodone 5MG/APAP 325MG 1 EA TAB ONE (13:18)
--- NOTE | 2020-11-04 13:29 | OP ---
DATE OF PROCEDURE: 11/04/20 PREOPERATIVE DIAGNOSIS: 1. Incarcerated incisional hernia with transverse colon. POSTOPERATIVE DIAGNOSIS: 1. Incarcerated incisional hernia with transverse colon. PROCEDURE: 1. Repair of incarcerated incisional hernia. 2. Mesh. SURGEON: Jose Mathew MD. ANESTHESIA: General, Quique Berman CRNA. FINDINGS: A loop of colon densely adherent to the hernia around the edges. No evidence of ischemia. COMPLICATIONS: None. ESTIMATED BLOOD LOSS: Minimal. SPECIMEN: None. PLAN: Discharge. FINDINGS: 2.5-inch Ventralex mesh placed. The defect was only about 4 cm whereas at least 8 to 10 inches of the colon went through. INDICATION: The patient with abdominal pain, both epigastric an dramatic sided. An ultrasound and CT showed some stones. An ultrasound was done that showed a nondistended, noninflamed gallbladder with stones. It was felt this hernia was likely her most symptomatic as it appeared to have a very narrow opening and a significant amount of colon through it, although non-obstructed. PROCEDURE: She was brought to the Operating Suite in supine position. General anesthesia was induced. She was prepped and draped in sterile fashion. Vertical incision was made over the palpable hernia above the umbilicus. Subcutaneous tissue was taken down. We isolated the hernia sac and got into it, again, to separate the dense adhesions of the contents from the sac down to the fascial edge. No evidence of colon damage at this time. Once we had that free, the hernia sac was then dissected away and the contents with some difficulty were reduced. Some oozing throughout on the mesentery was controlled with cautery. Once it was reduced, we then assessed the size and the defect was just about 4 cm. A 2.5-inch Ventralex was used and placed nicely, flat in the abdominal wall. The defect was then closed with multiple interrupted 0 PDS sutures catching the tail with the centra 3 sutures, trimming the tail and burying it while we finished the closure. There was good hemostasis. The wound was closed in two layers with absorbable suture. Dressing was applied. A lot of local anesthesia had been placed in the fascia, the subcutaneous and skin. She should get good postoperative pain control. Given her recovery status, she may be able to be discharged today. #[id number] cc: Darrel Marroquin MD [facility]OSPITALPaula
[2020-11-04 14:33] VITALS: BP 116/57; TEMP 97.3; O2SAT 95
== END 2020-11-04 15:15 ==
LOC: AMB 05:33
PROVIDERS: ATTEND Surgery
DX: K43.0 Incisional hernia with obstruction, without gangrene (principal); E11.9 Type 2 diabetes mellitus without complications; I10 Essential (primary) hypertension; I45.2 Bifascicular block; Z99.2 Dependence on renal dialysis; Z95.0 Presence of cardiac pacemaker; Z96.653 Presence of artificial knee joint, bilateral; Z79.899 Other long term (current) drug therapy
CPT/HCPCS: 00832; 36415; 36416; 49561; 49568; 80048; 82948; 85025; J0690; J1100; J1200; J2405; J3010; J3490; J7120

== ENCOUNTER → 2020-12-16 | Outpatient (CLI) | payer MEDICARE ==
--- NOTE | 2020-12-16 14:18 | RAD ---
EXAM DESCRIPTION: Ankle,Left 3 Views CLINICAL HISTORY: 80 years Female, FX COMPARISON: November 03, 2020 Findings: 3 view(s)/radiograph(s) Increased distraction of the medial malleolar fracture fragment. No interval healing. No new fracture. The talar dome is unremarkable. The ankle mortise is symmetric. Osteopenia. No dislocation. Similar degenerative changes. Vascular calcifications. IMPRESSION: Increased distraction of the left medial malleolar fracture fragment. Electronically signed by: Vitor Christy MD 12/16/2020 2:16 PM [facility]
--- NOTE | 2020-12-16 14:26 | RAD ---
EXAM DESCRIPTION: Knee,Right 1 or 2 Views CLINICAL HISTORY: 80 years, Female, FX COMPARISON: Previous right knee x-rays November 03, 2020 TECHNIQUE: Three views of the right knee FINDINGS: Total right knee arthroplasty. Anatomic alignment of femoral and tibial components. Transversely oriented fracture through the metaphysis of the distal right radius is seen along the upper aspect of the femoral component. Sclerosis is seen across the fracture line consistent with bridging callus. Extensive vascular calcifications. Patella is normally situated. No suprapatellar joint effusion. On the frontal view, callus formation is seen around the fracture lines medially and laterally. IMPRESSION: Healing fracture of the distal right femur with total right knee arthroplasty. Electronically signed by: Valentín Tabares MD 12/16/2020 2:24 PM [facility]
== END ==
LOC: RAD 07:37
PROVIDERS: ATTEND Orthopaedic Surgery
DX: S82.55XD Nondisplaced fracture of medial malleolus of left tibia, subsequent encounter for closed fracture with routine healing (principal); S72.401D Unspecified fracture of lower end of right femur, subsequent encounter for closed fracture with routine healing; Z96.651 Presence of right artificial knee joint